=== PATIENT | female | born 1955 | race Caucasian/White ===

== ENCOUNTER → 2018-05-09 15:05 | Outpatient (CLI) | payer OTHER, SELFPAY ==
[2015-06-23 14:26] VITALS: BMI 31.4
[2018-05-09 18:41] LABS: AST(SGOT) 19 U/L (15-37); Alanine Aminotransfer ALT/SGPT 46 U/L (13-56); Albumin, Serum 4.3 g/dL (3.2-5.0); Alkaline Phosphatase 89 U/L (45-117); Anion Gap 8 (5-15); BUN 15 mg/dL (7-18); BUN/Creat Ratio 22.9 RATIO (10-20); Bilirubin, Direct 0.11 mg/dL (0.00-0.30); Calcium,Total 9.5 mg/dL (8.5-10.1); Chloride 104 mmol/L (98-107); Cholesterol 169 mg/dL (200); Creatinine, Serum 0.66 mg/dL (0.55-1.02); EST Glomerular Filtration Rate 97 mL/min (>60); Est Glom Filt Rate - Afr Amer 117 mL/min (>60); Globulin 3.1 g/dL (2.2-4.2); Glucose 121 mg/dL (74-106); High Density Lipoprotein 30 mg/dL; Potassium 4.1 mmol/L (3.5-5.1); Protein, Total 7.4 g/dL (6.4-8.2); Sodium Level 138 mmol/L (136-145); Triglycerides 259 mg/dL; Very Low Density Lipoprotein 52 mg/dL (5-40)
[2018-05-09 18:46] LABS: Hemoglobin A1c 7.2 % (4.2-6.3)
[2018-05-09 19:11] LABS: Microalbumin,Random Urine 29.8 mg/L (NO RANGE EST.); Microalbumin:Creatinine Ratio 15.1 mg/g CRE (<30 mg/g CRE)
--- OUTSIDE RECORDS SUMMARY | 2018-06-25 21:31 | XMS RPT_ITS ---
:1955 Author Organization OHIP Care Team Providers Name Role Phone Antolin Infante Attending Unavailable Antolin Infante Primary Care Unavailable KEYA BURRELL Attending Unavailable KEYA BURRELL Referring Unavailable Antolin Infante Primary Care Unavailable KEYA BURRELL Consulting Unavailable ANTOLIN LIU Admitting Unavailable ANTOLIN LIU Attending Unavailable ROBIN KHAN Consulting Unavailable DESIREE MTZ Attending Unavailable CYNTHIA DOBSON Admitting Unavailable CYNTHIA DOBSON Attending Unavailable CYNTHIA DOBSON Attending Unavailable CYNTHIA DOBSON Attending Unavailable CYNTHIA DOBSON Referring Unavailable CYNTHIA DOBSON Attending Unavailable CYNTHIA DOBSON Attending Unavailable ANTOLIN TAYLOR Primary Care Unavailable CYNTHIA DOBSON Admitting Unavailable CYNTHIA DOBSON Attending Unavailable IMCA Consulting Unavailable CYNTHIA DOBSON Attending Unavailable IMCA Referring Unavailable ANTOLIN TAYLOR Primary Care Unavailable CYNHTIA DOBSON Attending Unavailable CYNTHIA DOBSON Referring Unavailable ANTOLIN TAYLOR Primary Care Unavailable CYNTHIA DOBSON Attending Unavailable CYNTHIA DOBSON Referring Unavailable ANTOLIN TAYLOR Primary Care Unavailable CYNTHIA DOBSON Attending Unavailable IMCA Referring Unavailable ANTOLIN TAYLOR Primary Care Unavailable CYNTHIA DOBSON Attending Unavailable IMCA Referring Unavailable ANTOLIN TAYLOR Primary Care Unavailable PROBLEMS PROBLEMS DATE TYPE CONDITION / CODE ATTENDING STATUS SOURCE 03/19/2018 Active Displaced OLYA, Active [facility] Other fracture of right [place] lower leg, Repository subsequent encounter for closed fracture with routine healing / S82.851D(ICD-10) 03/19/2018 Admitting Unknown / KISHMAN, Active [place] [place] [facility] diagnosis UNK(Unknown) [facility] Repository 03/28/2018 Active Other fracture of OLYA, Active [place] right lower leg, [facility] Other subsequent encounter [place] for closed fracture Repository with routine healing / S82.891D(ICD-10) 03/28/2018 Active Other fracture of TIFFANYSHRUIZ, Active [place] left lower leg, [facility] Other subsequent encounter [place] for closed fracture Repository with routine healing / S82.892D(ICD-10) 03/22/2018 Active Unknown / SCHEATZLE, Active [place] UNK(Unknown) [facility] [place] Repository 03/18/2018 Active Displaced KISHMAN, Active [place] trimalleolar [facility] Other fracture of right [place] lower leg, initial Repository encounter for closed fracture / S82.851A(ICD-10) 03/18/2018 Active Other fracture of LISTERRUIZ, Active [place] right lower leg, [facility] Other initial encounter [place] for closed fracture Repository / S82.891A(ICD-10) 03/18/2018 Active Other specified LISTERPANTEGO, Active [place] postprocedural [facility] Other states / [place] Z98.890(ICD-10) Repository 03/18/2018 Active Other fracture of LISTERRUIZ, Active [place] upper and lower end [facility] Other of left fibula, [place] initial encounter Repository for closed fracture / S82.832A(ICD-10) 03/18/2018 Active Unspecified fall, [facility], Active [place] initial encounter / [facility] Other W19.XXXA(ICD-10) [place] Repository 03/18/[address] [facility], Active [place] unspecified [facility] Other non-institutional [place] (private) residence Repository as the place of occurrence of the external cause / Y92.009(ICD-10) PROCEDURES PROCEDURES No Procedure Records FoundRESULTS RESULTS PROGRESS Observed: 06/03/2018 Status: COMPLETED Source: [place] 1:33 PM CLINIC OTHER CAMPUS REPOSITORY HNO ID: [id number] Author: Cynthia Dobson Service: (none) Author Type: Physician Type: Progress Notes Filed: 06/03/2018 9:08 PM Note Text: DOS: 03/19/18 POD: 11 weeks POV: 4 Procedure: S/p ORIF right ankle fracture and nonoperative care left ankle fracture This 62 year old female presents for a post op visit. Patient states they are doing well. Has transitioned to WB in boot right ankle and WB in lace up ankle brace left ankle. Has also been in physical therapy. States that having little to no pain to her ankles. Not taking anything for pain in the ankle. Denies any current nausea, vomiting, fever, chills, shortness of breath, chest pain or calf pain. No other pedal complaints. PAST MEDICAL HISTORY Diagnosis Date - Anxiety disorder - Diabetes (HCC) Current Outpatient Prescriptions: rosuvastatin (CRESTOR) 5 mg tablet Take 5 mg by mouth once daily. metFORMIN (GLUCOPHAGE) 1,000 mg tablet Take 1,000 mg by mouth twice daily with meals. ibuprofen (MOTRIN) 600 mg tablet Take 1 tablet by mouth every 6 hours as needed (for pain.). lisinopril 2.5 mg tablet Take 1 tablet by mouth once daily. citalopram hydrobromide (CELEXA) 10 mg tablet Take 10 mg by mouth once daily. metFORMIN (GLUCOPHAGE) 500 mg tablet Take 1 tablet by mouth twice daily with meals. enoxaparin (LOVENOX) 40 mg/0.4 mL syrg Inject 0.4 mL subcutaneously q 24 HR. (Patient not taking: Reported on 06/03/2018 ) No current facility-administered medications for this visit. ALLERGIES Allergen Reactions - Codeine Mental Status Change hallucinations Objective: Patient presents weightbearing as tolerated to right leg in boot and WB in lace up ankle brace left ankle. Problem focus examination to the bilateral lower extremities: Incision site is well healed without evidence of dehiscence. Mild edema surrounding surgical site right ankle. No edema left ankle. No drainage. No lymphadenopathy. No lymphangitis. No surrounding cellulitis. No signs of infection. Minimal pain overlying medial and lateral malleoli right ankle. Significant improvement in ROM right ankle. No pain with ROM bilateral ankles. No pain to palpation overlying lateral malleolus left ankle. No pain to palpation overlying medial or anterior left ankle. Patient has no pain to palpation of calf. The calf is soft, supple and nontender without evidence of DVT. Negative Lizbeth's test. Satisfactory alignment is noted. Pedal pulses are palpable. Capillary refill time is less than three seconds to all digits. Sensations are intact to light touch. Radiographs: 3 views bilateral ankle were obtained and evaluated. Radiographic evaluation: Evidence of previous ORIF right ankle fracture with increased trabeculation noted across fracture sites. Hardware intact. Ankle mortise WNL. Fibula out to length. Increased consolidation noted across fracture left fibula. Assessment: Satisfactory post-operative progress right ankle Fibula fracture left ankle Plan: The patient was educated on clinical examination findings, postoperative prognosis and protocol. All questions were answered to patient's apparent satisfaction. - XRs taken and reviewed with patient - Patient to continue weightbearing as tolerated to the operative extremity in boot for 1 week. At that time may advance to WB as tolerated in athletic shoe gear and lace up ankle brace right ankle as tolerated. - September d/c use of lace up ankle brace left ankle as tolerated at this time. -Continue physical therapy. Follow up 6 week with repeat xrays at that time. Cynthia Dobson DPM CNOV Observed: 06/03/2018 Status: COMPLETED Source: [place] 1:00 PM CLINIC OTHER CAMPUS REPOSITORY Office Visit (AGPOB1) KARLI KRISHNAMURTHY ([id number]) 1955 F Date Time Provider Department 06/03/18 1:00 PM CYNTHIA DOBSON [facility] During your visit today, we recorded the following information about you: Respiration Weight Height 16/minute 65.8 kg 1.575 m Cynthia Dobson DPM 06/03/2018 9:08 PM Signed DOS: 03/19/18 POD: 11 weeks POV: 4 Procedure: S/p ORIF right ankle fracture and nonoperative care left ankle fracture This 62 year old female presents for a post op visit. Patient states they are doing well. Has transitioned to WB in boot right ankle and WB in lace up ankle brace left ankle. Has also been in physical therapy. States that having little to no pain to her ankles. Not taking anything for pain in the ankle. Denies any current nausea, vomiting, fever, chills, shortness of breath, chest pain or calf pain. No other pedal complaints. PAST MEDICAL HISTORY Diagnosis Date - Anxiety disorder - Diabetes (HCC) Current Outpatient Prescriptions: rosuvastatin (CRESTOR) 5 mg tablet Take 5 mg by mouth once daily. metFORMIN (GLUCOPHAGE) 1,000 mg tablet Take 1,000 mg by mouth twice daily with meals. ibuprofen (MOTRIN) 600 mg tablet Take 1 tablet by mouth every 6 hours as needed (for pain.). lisinopril 2.5 mg tablet Take 1 tablet by mouth once daily. citalopram hydrobromide (CELEXA) 10 mg tablet Take 10 mg by mouth once daily. metFORMIN (GLUCOPHAGE) 500 mg tablet Take 1 tablet by mouth twice daily with meals. enoxaparin (LOVENOX) 40 mg/0.4 mL syrg Inject 0.4 mL subcutaneously q 24 HR. (Patient not taking: Reported on 06/03/2018 ) No current facility-administered medications for this visit. ALLERGIES Allergen Reactions - Codeine Mental Status Change hallucinations Objective: Patient presents weightbearing as tolerated to right leg in boot and WB in lace up ankle brace left ankle. Problem focus examination to the bilateral lower extremities: Incision site is well healed without evidence of dehiscence. Mild edema surrounding surgical site right ankle. No edema left ankle. No drainage. No lymphadenopathy. No lymphangitis. No surrounding cellulitis. No signs of infection. Minimal pain overlying medial and lateral malleoli right ankle. Significant improvement in ROM right ankle. No pain with ROM bilateral ankles. No pain to palpation overlying lateral malleolus left ankle. No pain to palpation overlying medial or anterior left ankle. Patient has no pain to palpation of calf. The calf is soft, supple and nontender without evidence of DVT. Negative Lizbeth's test. Satisfactory alignment is noted. Pedal pulses are palpable. Capillary refill time is less than three seconds to all digits. Sensations are intact to light touch. Radiographs: 3 views bilateral ankle were obtained and evaluated. Radiographic evaluation: Evidence of previous ORIF right ankle fracture with increased trabeculation noted across fracture sites. Hardware intact. Ankle mortise WNL. Fibula out to length. Increased consolidation noted across fracture left fibula. Assessment: Satisfactory post-operative progress right ankle Fibula fracture left ankle Plan: The patient was educated on clinical examination findings, postoperative prognosis and protocol. All questions were answered to patient's apparent satisfaction. - XRs taken and reviewed with patient - Patient to continue weightbearing as tolerated to the operative extremity in boot for 1 week. At that time may advance to WB as tolerated in athletic shoe gear and lace up ankle brace right ankle as tolerated. - May d/c use of lace up ankle brace left ankle as tolerated at this time. -Continue physical therapy. Follow up 6 week with repeat xrays at that time. Cynthia Dobson DPM Referring Provider: SELF [200] Allergies As of Date: 06/03/2018 Noted Allergy Reaction CODEINE 03/18/2018 1 - Mental Status Change Comments: hallucinations Date Reviewed: 06/03/2018 Reviewed by: Cynthia Dobson - Fully Assessed Reason for Visit: Surgical Followup [104] Cmt: right ankle Primary Visit Diagnosis:Closed displaced trimalleolar fracture of right ankle with routine healing, subsequent encounter [S82.179R] Other Visit Diagnoses:Closed fracture of left ankle with routine healing, subsequent encounter [S82.892D] Post-operative state [Z98.890] Order(s):XR ANKLE GENERAL 3V AP/LAT/OBL RT [6119611] Order #: [id number] XR ANKLE GENERAL 3V AP/LAT/OBL LT [[id number]] Order #: [id number] CONSULT TO PHYSICAL THERAPY (AG) [5079904] Order #: [id number]: 1 Prescriptions as of 06/03/2018 Sig: ROSUVASTATIN 5 MG TABLET Take 5 mg by mouth once daily. METFORMIN 1,000 MG TABLET Take 1,000 mg by mouth twice * IBUPROFEN 600 MG TABLET Take 1 tablet by mouth every * LISINOPRIL 2.5 MG TABLET Take 1 tablet by mouth once d* CITALOPRAM 10 MG TABLET Take 10 mg by mouth once avinash* METFORMIN 500 MG TABLET Take 1 tablet by mouth twice * ENOXAPARIN 40 MG/0.4 ML SUBCU* Inject 0.4 mL subcutaneously * Patient not taking: Reported on 06/03/2018 Problem List As Of Date 06/03/2018 Noted Resolved Closed displaced trimalleolar fracture of right*INVALID FOR* Disposition: Return in about 6 weeks (around 07/15/2018). Follow-up and Disposition History Recorded Encounter Status:Closed by CYNTHIA DOBSON DPM on 06/03/18 INITAL EVALUATION (1) Observed: 06/02/2018 Status: F Source: [place] - PT 9:49 AM [facility] REPOSIT[facility] [address] [place] [address] / REHABILITATION SERVICES INITIAL EVALUATION MR#: [id number] Acct: [id number] Name: KARLI KRISHNAMURTHY Rep #: [id number] : 1955 62 From: Norm Murrieta PT, Cert. MDT, OCS Referring Dr.: Status: REG RCR Insurance: [facility] SELF PAY INSURANCE Patient's Visit Information KARLI KRISHNAMURTHY is a 62 year old F referred to Physical Therapy by CYNTHIA DOBSON with a diagnosis of CLOSED FRACTURE OF RIGHT AND LEFT ANKLE WITH ROUTINE HEALING. Date of Evaluation: 05/26/18 Physical Therapist: Norm Murrieta PT, Cert MDT, OCS - Visit Plan Frequency: 2x /Week Duration: 3 Months Plan: Intially PWB ON RIGHT THEN NEXT WEEK WBAT WITH CAM BOOT AND WBAT WITH LACE UP ANKLE BRACE RIGHT. INTIALLY START NWB EX'S ROM AND THERABAND STRENGTGENING BILATERAL ANKLE,FLEXABLITY,PROGRESS WITH GAIT TRAINING/BALANCE JENA ,PROGRESS TO WB EX' PER MD. QUAD/HIP/HAMS STRENGTHENING - Subjective Findings: This 63 y/o female presents to physical therapy with closed fracture of right and left ankle. Patient fracture tripped on deck at home twisted left ankle closed fracture and fell on right ankle causing closed fracture with dislocation on Mar 18. Patient went to ER at [place] ,thus tranferred to [facility] which did ORIF right ankle on Mar 19 . Patient in hospital for 4 days then went to Rehab for 2weeks at [facility]. When patient seen DR phillips in brace left ankle with WBAT LEFT on the ,and with boot right PWB 1 week then 2weeks on 05/27 at transition to WBAT with CAM boot.Paln to return to Jun 06. Patient conts to have parathesia.tingling and edema.Patient had x-rays looked good .Patient has walk in shower,and spouse assist with ADL'S. Patient scoot up buttuck with stairs. Patient has 2 story home 2 steps and 14 steps 2nd floor.Patient uses w/c currently for moblity. Patient has fww. Patient current condition impairs QOL and ADLS'. SOCAIL: . VOCATION: retired - Pain Right Ankle Pain Intensity (Out of 10): 2 Pain Intensity Range: 10 Left Ankle Pain Intensity (Out of 10): 1 Pain Intensity Range: 10 - Objective POSTURE: pes cavus. MOBLITY: w/c level. NEURO: c/o parathesia/tingling right foot ,diminished light touch,. EDEMA: trimalleor joint line 23.5 cm,left 22.1cm. AROM:R- dorsiflexion 20 degrees from 0,L 10 degrees R -plantarflexion 50,L 60 degrees ,inverson R -10 degrees,right 0 degrees. MMT: left ankle DF 4-/5, PF 2+/5,IN/EV 4-/5,right ankle DF 3+/5,PF 2+/'5,,IN/EV NT. TRANSFERS: mod Independant. - HOMMANS - Goals Goal 1:: Independant with HEP Goal Time Frame: 12-16 Weeks Goal 2:: Ambulate with improve quality of gait with heelstike and toe off during gait cycle community distances. Goal Time Frame: 12-16 Weeks Goal 3:: Patient to improve dynamic balance to goood Goal Time Frame: 12-16 Weeks Goal 4:: Patient to improve ankle ROM as jena by 5-10 degrees to improve function. Goal Time Frame: 12-16 Weeks Goal 5:: Patient to improve strength bilateral ankle 4/5 to improve gait. Goal Time Frame: 12-16 Weeks Goal 6:: Patient to improve LFES score by 15-20 points or greater to improve QOL. Goal Time Frame: 12-16 Weeks - Rehabilitation Potential Physical Therapy Diagnosis: This patient has bilateral ankle fracture with disloaction on right with ORIF with inablity to walk,poor balance,weakness,decrease strength bilateral ankle impairs function and ADL'S thus benifit from skilled PT Rehabilitation Potential: Good - Anticipated Interventions Patient/Client Instruction: Educate patient on: Condition, Plan of Care For the Purpose of:: To decrease pain, To increase ROM, To improve muscle performance and motor function, To improve ability to perform ADL's, To increase tolerance to activity/condition/position, To improve ability of physical actions for home/community/work/leisure, To improve gait and locomotor functions, To improve health of tissue, To decrease soft tissue restriction, To increase flexibility/ROM, To improve endurance, To improve balance, To improve safety with gait, To improve ability to perform tasks related to life management Therapeutic Exercise to Include: Strength training, Balance training, Flexibilty training, Gait and locomotor training, Passive ROM, Active ROM Comment: ANKLE PROGRESS TO WB EX PER MD For the Purpose of:: To decrease pain, To decrease swelling/inflammation, To increase ROM, To improve muscle performance and motor function, To improve ability to perform ADL's, To increase tolerance to activity/condition/position, To improve ability of physical actions for home/community/work/leisure, To improve gait and locomotor functions, To improve health of tissue, To decrease soft tissue restriction, To increase flexibility/ROM, To improve balance, To improve safety with gait, To improve ability to perform tasks related to life management Manual Therapy Techniques to Include: Mobilization Comment: METATARSELS,SUBTALAR For the Purpose of:: To decrease pain, To increase ROM, To improve health of tissue, To decrease soft tissue restriction, To increase flexibility/ROM TENS: Yes IF ES: Yes Cryotherapy (ice pack, ice massage): Yes Thermo therapy (hot pack): Yes Vasopneumatic device: Yes For the Purpose of:: To decrease pain, To increase ROM, To improve nutrient delivery to tissue, To increase oxygenation perfusion, To improve health of tissue, To decrease soft tissue restriction, To increase flexibility/ROM Thank you for the opportunity to evaluate your patient. For Medicare and Medicare HMO plans, please review the plan of care and approve it. It will need to be FAXED BACK to us at [phone] for Medicare purposes. For Medicare only, by signing this I certify the plan of care. Please let me know if there are questions or concerns regarding this plan of care. Physician Signature: Date: <Electronically signed by Norm Murrieta PT, Cert. MDT, OCS> 06/02/18 0949 CC: CYNTHIA DOBSON; Antolin Infante MD EDDIE Signed OBSOLETE Observed: 05/25/2018 Status: COMPLETED Source: [place] 12:00 AM CLINIC OTHER CAMPUS REPOSITORY Refill (AGPOB1) KARLI KRISHNAMURTHY ([id number]) 1955 F Date Time Provider Department 05/25/18 CYNTHIA DOBSON [id number] During your visit today, we recorded the following information about you: Allergies As of Date: 05/25/2018 Noted Allergy Reaction CODEINE 03/18/2018 1 - Mental Status Change Comments: hallucinations Date Reviewed: 05/06/2018 Reviewed by: Cynthia Dobson - Fully Assessed Reason for Visit: Refill Request [94] Order(s):ibuprofen (MOTRIN) 600 mg tabletTake 1 tablet by mouth every 6 hours as needed (for pain.).Disp: 60 tabletRfl: 1 Prescriptions as of 05/25/2018 Sig: CITALOPRAM 10 MG TABLET Take 10 mg by mouth once avinash* ENOXAPARIN 40 MG/0.4 ML SUBCU* Inject 0.4 mL subcutaneously * IBUPROFEN 600 MG TABLET Take 1 tablet by mouth every * LISINOPRIL 2.5 MG TABLET Take 1 tablet by mouth once d* METFORMIN 500 MG TABLET Take 1 tablet by mouth twice * Problem List As Of Date 05/25/2018 Noted Resolved Closed displaced trimalleolar fracture of right*INVALID FOR* Prescriptions ordered this encounter Disp Refills Start End IBUPROFEN 600 MG TABLET 60 t* 1 05/25/2018 Route: ORAL Sig: Take 1 tablet by mouth every 6 hours as needed (for pain.). Medications Discontinued During This Encounter ibuprofen (MOTRIN) 600 mg tablet 60 t* 1 05/12/2018 05/25/2018 Route: ORAL Sig: TAKE 1 TABLET BY MOUTH EVERY 6 HOURS NEEDED (FOR PAIN.). Disc: Reason for discontinue is not on file. Encounter Status:Closed by CYNTHIA DOBSON DPM on 05/25/18 OBSOLETE Observed: 05/12/2018 Status: COMPLETED Source: [place] 12:00 AM CLINIC OTHER CAMPUS REPOSITORY Refill (AGPOB1) KARLI KRISHNAMURTHY ([id number]) 1955 F Date Time Provider Department 05/12/18 CYNTHIA DOBSON AGPOB1 During your visit today, we recorded the following information about you: Allergies As of Date: 05/12/2018 Noted Allergy Reaction CODEINE 03/18/2018 1 - Mental Status Change Comments: hallucinations Date Reviewed: 05/06/2018 Reviewed by: Cynthia Dobson - Fully Assessed Reason for Visit: Refill Request [94] Order(s):ibuprofen (MOTRIN) 600 mg tabletTAKE 1 TABLET BY MOUTH EVERY 6 HOURS NEEDED (FOR PAIN.).Disp: 60 tabletRfl: 1 Prescriptions as of 05/12/2018 Sig: IBUPROFEN 600 MG TABLET TAKE 1 TABLET BY MOUTH EVERY * CITALOPRAM 10 MG TABLET Take 10 mg by mouth once avinash* ENOXAPARIN 40 MG/0.4 ML SUBCU* Inject 0.4 mL subcutaneously * LISINOPRIL 2.5 MG TABLET Take 1 tablet by mouth once d* METFORMIN 500 MG TABLET Take 1 tablet by mouth twice * Problem List As Of Date 05/12/2018 Noted Resolved Closed displaced trimalleolar fracture of right*INVALID FOR* Prescriptions ordered this encounter Disp Refills Start End IBUPROFEN 600 MG TABLET 60 t* 1 05/12/2018 Route: ORAL Sig: TAKE 1 TABLET BY MOUTH EVERY 6 HOURS NEEDED (FOR PAIN.). Medications Discontinued During This Encounter ibuprofen (MOTRIN) 600 mg tablet 60 t* 1 04/08/2018 05/12/2018 Route: ORAL Sig: Take 1 tablet by mouth every 6 hours as needed (for pain.). Disc: Reason for discontinue is not on file. Encounter Status:Closed by CYNTHIA DOBSON DPM on 05/12/18 BASIC METABOLIC Collected: 05/09/2018 Status: F Source: [place] PROFILE (BMP) 3:11 PM [facility] REPOSITORY TYPE CODE TESTS RESULT OUT OF RANGE REFERENCE UNITS LAB L501.0100 74-106 mg/dL High GLU 121 Result Comment: Fasting Glucose result from 100 to 125 mg/dL suggests IMPAIRED HOMEOSTASIS per A.D.A. criteria. Please note revised GLUCOSE reference range effective 2017. LAB L501.1000 7-18 mg/dL Normal BUN 15 LAB L501.1100 0.55-1.02 mg/dL Normal CREAT,SERUM 0.66 Result Comment: The validity of the calculated GFR AND GFRAA in patients over 70 years has not been determined. Clinical correlation is essential. LAB L501.1110 >60 mL/min Normal EST GFR 97 Result Comment: Non- GFR Calc LAB L501.1115 >60 mL/min Normal EST GFR - AA 117 Result Comment: GFR Calc LAB L501.1300 10-20 RATIO High BUN/CRE 22.9 LAB L501.2200 8.5-10.1 mg/dL CA Normal 9.5 LAB L501.5300 136-145 mmol/L NA Normal 138 LAB L501.5600 3.5-5.1 mmol/L K Normal 4.1 LAB L501.5900 98-107 mmol/L CL Normal 104 LAB L501.6100 21.0-32.0 mmol/L Normal CO2 26.0 LAB L501.6200 5-15 Normal GAP 8 Performed By: #### L500.2500, L500.3400, L500.4100 #### [facility] [address] [place], [place], [id number] LIVER PROFILE Collected: 05/09/2018 Status: F Source: [place] 3:11 PM [facility] REPOSITORY TYPE CODE TESTS RESULT OUT OF RANGE REFERENCE UNITS LAB L501.1500 6.4-8.2 g/dL Normal T PROT 7.4 LAB L501.1800 3.2-5.0 g/dL Normal ALB 4.3 LAB L501.1950 2.2-4.2 g/dL Normal GLOB 3.1 LAB L501.4100 15-37 U/L Normal AST 19 LAB L501.4305 45-117 U/L Normal ALK P 89 LAB L501.4405 13-56 U/L Normal ALT 46 LAB L501.4600 0.20-1.00 mg/dL Normal T BILI 0.30 LAB L501.4700 0.00-0.30 mg/dL Normal D BILI 0.11 Performed By: #### L500.2500, L500.3400, L500.4100 #### [facility] [address] [place], [address] LIPID PROFILE Collected: 05/09/2018 Status: F Source: [place] 3:11 PM [facility] REPOSITORY TYPE CODE TESTS RESULT OUT OF RANGE REFERENCE UNITS LAB L501.4900 200 mg/dL Normal CHOL 169 Result Comment: <200 mg/dL Desirable 200-240 mg/dL Borderline >240 mg/dL High Risk LAB L501.5000 mg/dL High TRIG 259 Result Comment: The drugs N-Acetylcysteine and Metamizole may falsely depress this assay. Serum Triglycerides Reference Interval Normal <150 mg/dL Borderline high 150 - 199 mg/dL High 200 - 499 mg/dL Very High > or = 500 mg/dL LAB L501.6400 mg/dL Low HDL 30 Result Comment: The drugs N-Acetylcysteine and Metamizole may falsely depress this assay. Reference Range HDL <40 mg/dL Low HDL Cholesterol HDL >or= 60 mg/dL High HDL Cholesterol LAB L501.6500 0-130 mg/dL Normal LDL 87 LAB L501.6600 5-40 mg/dL High VLDL 52 Performed By: #### L500.2500, L500.3400, L500.4100 #### [facility] [address] [place], [address] HEMOGLOBIN A1C Collected: 05/09/2018 Status: F Source: [place] 3:11 PM [facility] REPOSITORY TYPE CODE TESTS RESULT OUT OF RANGE REFERENCE UNITS LAB L501.9985 4.2-6.3 % High HGB A1C 7.2 Performed By: #### L501.9985 #### [facility] [address] [place], [address] MICROALB:CREAT Collected: 05/09/2018 Status: F Source: [place] [facility] 3:11 PM [facility] REPOSITORY TYPE CODE TESTS RESULT OUT OF RANGE REFERENCE UNITS LAB L501.1200 NO RANGE EST. mg/dL Normal UR CREAT 197.00 LAB L502.0500 NO RANGE EST. mg/L Normal 29.8 MICROALBUMIN ,UR LAB L502.0600 <30 mg/g CRE mg/g CRE Normal 15.1 MALB:CREAT Performed By: #### L502.0250 #### [facility] [address] [place], [address] PROGRESS Observed: 05/06/2018 Status: COMPLETED Source: [place] 2:31 PM [facility] OTHER [facility] REPOSITORY HNO ID: [id number] Author: Cynthia Dobson Service: (none) Author Type: Physician Type: Progress Notes Filed: 05/08/2018 2:09 PM Note Text: DOS: 03/19/18 POD: 7 weeks POV: 3 Procedure: S/p ORIF right ankle fracture and nonoperative care left ankle fracture This 62 year old female presents for a post op visit. Patient states they are doing well. Pain is well controlled by Ibuprofen and Tylenol. States that taking this less often than had been. Has been elevating the extremities as instructed preoperatively and has been nonweightbearing to the right lower extremity and WB in boot left LE. Denies any current nausea, vomiting, fever, chills, shortness of breath, chest pain or calf pain. No other pedal complaints. PAST MEDICAL HISTORY Diagnosis Date - Anxiety disorder - NEGATIVE MEDICAL HISTORY Current Outpatient Prescriptions: ibuprofen (MOTRIN) 600 mg tablet Take 1 tablet by mouth every 6 hours as needed (for pain.). lisinopril 2.5 mg tablet Take 1 tablet by mouth once daily. enoxaparin (LOVENOX) 40 mg/0.4 mL syrg Inject 0.4 mL subcutaneously q 24 HR. citalopram hydrobromide (CELEXA) 10 mg tablet Take 10 mg by mouth once daily. metFORMIN (GLUCOPHAGE) 500 mg tablet Take 1 tablet by mouth twice daily with meals. No current facility-administered medications for this visit. ALLERGIES Allergen Reactions - Codeine Mental Status Change hallucinations Objective: Patient presents nonweightbearing to right leg in boot with crutches and WB in boot left ankle. Right foot/ankle Tubigrip and tuan bandage. Problem focus examination to the right lower extremity: Incision site is well coapted without evidence of dehiscence. Mild erythema and edema surrounding surgical site. No drainage. No lymphadenopathy. No lymphangitis. No surrounding cellulitis. No signs of infection. Pain overlying medial and lateral malleoli and incision sites right ankle. Appropriate diffuse mild pain to palpation of global right ankle. Pain with max DF of right ankle, unable to actively DF foot to 90 degrees. Minimal pain to palpation overlying lateral malleolus left ankle. No pain to palpation overlying medial or anterior left ankle. No pain with AJ ROM left. Patient has no pain to palpation of calf. The calf is soft, supple and nontender without evidence of DVT. Negative Lizbeth's test. Satisfactory alignment is noted. Pedal pulses are palpable. Capillary refill time is less than three seconds to all digits. Sensations are intact to light touch. Radiographs: 3 views bilateral ankle were obtained and evaluated. Radiographic evaluation: Evidence of previous ORIF right ankle fracture. Hardware intact. Ankle mortise WNL. Fibula out to length. Increased consolidation noted across fractures. Assessment: Satisfactory post-operative progress right ankle Fibula fracture left ankle Plan: The patient was educated on clinical examination findings, postoperative prognosis and protocol. All questions were answered to patient's apparent satisfaction. - XRs taken and reviewed with patient - Patient to continue nonweightbearing to the operative extremity in boot and crutches for 1 week, then partial WB in boot with crutches for another 2 weeks, then WB as tolerated in boot without crutches - Patient to continue WB as tolerated to the left ankle in fracture boot for 1 week, then transition out of boot with ankle brace - Lace up ankle brace fit and dispensed to the left ankle today. - New Tubigrip and TUAN dispensed. - Patient to continue ROM exercises. - Referral to physical therapy Follow up 4 week with repeat xrays at that time. Vickey Matson DPM pgy2 Patient was seen, evaluated, discussed and treated with the above resident, all copeland components of the exam and treatment were reviewed. I agree with the findings and treatment plan as outlined the above note. Cynthia Dobson DPM CNOV Observed: 05/06/2018 Status: COMPLETED Source: [place] 2:15 PM [facility] OTHER [facility] REPOSITORY Office Visit (AGPOB1) KARLI KRISHNAMURTHY ([id number]) 1955 F Date Time Provider Department 05/06/18 2:15 PM CYNTHIA DOBSON [id number] During your visit today, we recorded the following information about you: Respiration Weight Height 16/minute 65.8 kg 1.575 m Cynthia Dobson DPM 05/08/2018 2:09 PM Signed DOS: 03/19/18 POD: 7 weeks POV: 3 Procedure: S/p ORIF right ankle fracture and nonoperative care left ankle fracture This 62 year old female presents for a post op visit. Patient states they are doing well. Pain is well controlled by Ibuprofen and Tylenol. States that taking this less often than had been. Has been elevating the extremities as instructed preoperatively and has been nonweightbearing to the right lower extremity and WB in boot left LE. Denies any current nausea, vomiting, fever, chills, shortness of breath, chest pain or calf pain. No other pedal complaints. PAST MEDICAL HISTORY Diagnosis Date - Anxiety disorder - NEGATIVE MEDICAL HISTORY Current Outpatient Prescriptions: ibuprofen (MOTRIN) 600 mg tablet Take 1 tablet by mouth every 6 hours as needed (for pain.). lisinopril 2.5 mg tablet Take 1 tablet by mouth once daily. enoxaparin (LOVENOX) 40 mg/0.4 mL syrg Inject 0.4 mL subcutaneously q 24 HR. citalopram hydrobromide (CELEXA) 10 mg tablet Take 10 mg by mouth once daily. metFORMIN (GLUCOPHAGE) 500 mg tablet Take 1 tablet by mouth twice daily with meals. No current facility-administered medications for this visit. ALLERGIES Allergen Reactions - Codeine Mental Status Change hallucinations Objective: Patient presents nonweightbearing to right leg in boot with crutches and WB in boot left ankle. Right foot/ankle Tubigrip and tuan bandage. Problem focus examination to the right lower extremity: Incision site is well coapted without evidence of dehiscence. Mild erythema and edema surrounding surgical site. No drainage. No lymphadenopathy. No lymphangitis. No surrounding cellulitis. No signs of infection. Pain overlying medial and lateral malleoli and incision sites right ankle. Appropriate diffuse mild pain to palpation of global right ankle. Pain with max DF of right ankle, unable to actively DF foot to 90 degrees. Minimal pain to palpation overlying lateral malleolus left ankle. No pain to palpation overlying medial or anterior left ankle. No pain with AJ ROM left. Patient has no pain to palpation of calf. The calf is soft, supple and nontender without evidence of DVT. Negative Lizbeth's test. Satisfactory alignment is noted. Pedal pulses are palpable. Capillary refill time is less than three seconds to all digits. Sensations are intact to light touch. Radiographs: 3 views bilateral ankle were obtained and evaluated. Radiographic evaluation: Evidence of previous ORIF right ankle fracture. Hardware intact. Ankle mortise WNL. Fibula out to length. Increased consolidation noted across fractures. Assessment: Satisfactory post-operative progress right ankle Fibula fracture left ankle Plan: The patient was educated on clinical examination findings, postoperative prognosis and protocol. All questions were answered to patient's apparent satisfaction. - XRs taken and reviewed with patient - Patient to continue nonweightbearing to the operative extremity in boot and crutches for 1 week, then partial WB in boot with crutches for another 2 weeks, then WB as tolerated in boot without crutches - Patient to continue WB as tolerated to the left ankle in fracture boot for 1 week, then transition out of boot with ankle brace - Lace up ankle brace fit and dispensed to the left ankle today. - New Tubigrip and TUAN dispensed. - Patient to continue ROM exercises. - Referral to physical therapy Follow up 4 week with repeat xrays at that time. Vickey Matson DPM pgy2 Patient was seen, evaluated, discussed and treated with the above resident, all copeland components of the exam and treatment were reviewed. I agree with the findings and treatment plan as outlined the above note. ONDINA Abernathy DPM 05/06/2018 3:24 PM Addendum RIGHT ANKLE: Nonweightbearing to the right ankle for the next week. In 1 week, transition to partial weightbearing in boot with assistance of walker. 2 weeks following this, may transition to weightbearing in boot without assistance LEFT ANKLE Continue boot for 1 week, then transition to WB in lace up ankle brace as tolerated Referring Provider: SELF [[id number]] Allergies As of Date: 05/06/2018 Noted Allergy Reaction CODEINE 03/18/2018 1 - Mental Status Change Comments: hallucinations Date Reviewed: 05/06/2018 Reviewed by: Cynthia Dobson - Fully Assessed Reason for Visit: Surgical Followup [104] Cmt: B Ankle R Ankle Sx DOS 03/19/2018 Primary Visit Diagnosis:Post-operative state [Z98.890] Other Visit Diagnoses:Closed fracture of right ankle with routine healing, subsequent encounter [S82.891D] Closed fracture of left ankle with routine healing, subsequent encounter [S82.892D] Order(s):XR ANKLE GENERAL 3V AP/LAT/OBL RT [[id number]] Order #: [id number] XR ANKLE GENERAL 3V AP/LAT/OBL LT [[id number]] Order #: [id number] AFO ANKLE GAUNTLET, CUSTOM FITTED [[id number]] Order #: [id number] CONSULT TO PHYSICAL THERAPY (AG) [[id number]] Order #: [id number]: 1 Prescriptions as of 05/06/2018 Sig: IBUPROFEN 600 MG TABLET Take 1 tablet by mouth every * LISINOPRIL 2.5 MG TABLET Take 1 tablet by mouth once d* ENOXAPARIN 40 MG/0.4 ML SUBCU* Inject 0.4 mL subcutaneously * CITALOPRAM 10 MG TABLET Take 10 mg by mouth once avinash* METFORMIN 500 MG TABLET Take 1 tablet by mouth twice * Problem List As Of Date 05/06/2018 Noted Resolved Closed displaced trimalleolar fracture of right*INVALID FOR* Other instructions from your clinician: RIGHT ANKLE: Nonweightbearing to the right ankle for the next week. In 1 week, transition to partial weightbearing in boot with assistance of walker. 2 weeks following this, may transition to weightbearing in boot without assistance LEFT ANKLE Continue boot for 1 week, then transition to WB in lace up ankle brace as tolerated Disposition: Return in about 4 weeks (around 06/03/2018). Follow-up and Disposition History Recorded Encounter Status:Closed by CYNTHIA DOBSON DPM on 05/08/18 PROGRESS Observed: 04/09/2018 Status: COMPLETED Source: [place] 8:38 PM [facility] OTHER [facility] REPOSITORY HNO ID: [id number] Author: Cynthia Dobson Service: (none) Author Type: Physician Type: Progress Notes Filed: 04/09/2018 8:45 PM Note Text: DOS: 03/19/18 POD: 20 days POV: 2 Procedure: S/p ORIF right ankle fracture and nonoperative care left ankle fracture This 62 year old female presents for a post op visit. Patient states they are doing well. Pain is well controlled by Jayton. States that taking this less often than had been. Has been icing and elevating the extremity as instructed preoperatively and has been nonweightbearing to the right lower extremity and WB in boot left LE. Denies any current nausea, vomiting, fever, chills, shortness of breath, chest pain or calf pain. States that blood sugars have been improved since her diagnosis and states that now averaging around 120 mg/dl. Now home. Has finished Lovenox for DVT prophylaxis. Denies any other pedal complaints PAST MEDICAL HISTORY Diagnosis Date - Anxiety disorder - NEGATIVE MEDICAL HISTORY Current Outpatient Prescriptions: HYDROcodone-acetaminophen (NORCO) 5-325 mg per tablet Take 1 tablet by mouth every 6 hours as needed for Pain for up to 7 days. ibuprofen (MOTRIN) 600 mg tablet Take 1 tablet by mouth every 6 hours as needed (for pain.). lisinopril 2.5 mg tablet Take 1 tablet by mouth once daily. metFORMIN (GLUCOPHAGE) 500 mg tablet Take 1 tablet by mouth twice daily with meals. enoxaparin (LOVENOX) 40 mg/0.4 mL syrg Inject 0.4 mL subcutaneously q 24 HR. citalopram hydrobromide (CELEXA) 10 mg tablet Take 10 mg by mouth once daily. No current facility-administered medications for this visit. ALLERGIES Allergen Reactions - Codeine Mental Status Change hallucinations Objective: Patient presents nonweightbearing to right leg and WB in boot left ankle. Dressing is dry, clean, and intact with minimal strike through noted. Problem focus examination to the right lower extremity: Incision site is well coapted without evidence of dehiscence. Mild erythema and edema surrounding surgical site. No drainage. No lymphadenopathy. No lymphangitis. No surrounding cellulitis. No signs of infection. Pain overlying medial and lateral malleoli and incision sites right ankle. Appropriate diffuse mild pain to palpation of global right ankle. Pain to palpation overlying lateral malleolus left ankle. No pain to palpation overlying medial or anterior left ankle. No pain with AJ ROM left. Patient has no pain to palpation of calf. The calf is soft, supple and nontender without evidence of DVT. Negative Lizbeth's test. Satisfactory alignment is noted. Pedal pulses are palpable. Capillary refill time is less than three seconds to all digits. Sensations are intact to light touch. Assessment: Satisfactory post-operative progress right ankle Fibula fracture left ankle Plan: The patient was educated on clinical examination findings, postoperative prognosis and protocol. All questions were answered to patient's apparent satisfaction. - Sutures removed to the right LE and steri-strips applied overlying. - Patient to continue nonweightbearing to the operative extremity and WB as tolerated to the left ankle in fracture boot - Fracture boot fit and dispensed in office today for the right LE. Tubigrip and TUAN wrap applied overlying. - Patient to remove boot couple times a day for ROM exercises. - Dispensed Rx for Jayton due to continued post operative pain. Advised patient to continue to decrease use of this medication. - Dispensed Rx for ibuprofen. Follow up 4 week with repeat xrays at that time. Cynthia Dobson DPM CNOV Observed: 04/08/2018 Status: COMPLETED Source: [place] 2:00 PM [facility] REPOSITORY Office Visit (AGPOB1) KARLI KRISHNAMURTHY ([id number]) 1955 F Date Time Provider Department 04/08/18 2:00 PM CYNTHIA DOBSONB1 During your visit today, we recorded the following information about you: Respiration Weight Height 17/minute 65.8 kg 1.575 m Cynthia Dobson DPM 04/09/2018 8:45 PM Signed DOS: 03/19/18 POD: 20 days POV: 2 Procedure: S/p ORIF right ankle fracture and nonoperative care left ankle fracture This 62 year old female presents for a post op visit. Patient states they are doing well. Pain is well controlled by Jayton. States that taking this less often than had been. Has been icing and elevating the extremity as instructed preoperatively and has been nonweightbearing to the right lower extremity and WB in boot left LE. Denies any current nausea, vomiting, fever, chills, shortness of breath, chest pain or calf pain. States that blood sugars have been improved since her diagnosis and states that now averaging around 120 mg/dl. Now home. Has finished Lovenox for DVT prophylaxis. Denies any other pedal complaints PAST MEDICAL HISTORY Diagnosis Date - Anxiety disorder - NEGATIVE MEDICAL HISTORY Current Outpatient Prescriptions: HYDROcodone-acetaminophen (NORCO) 5-325 mg per tablet Take 1 tablet by mouth every 6 hours as needed for Pain for up to 7 days. ibuprofen (MOTRIN) 600 mg tablet Take 1 tablet by mouth every 6 hours as needed (for pain.). lisinopril 2.5 mg tablet Take 1 tablet by mouth once daily. metFORMIN (GLUCOPHAGE) 500 mg tablet Take 1 tablet by mouth twice daily with meals. enoxaparin (LOVENOX) 40 mg/0.4 mL syrg Inject 0.4 mL subcutaneously q 24 HR. citalopram hydrobromide (CELEXA) 10 mg tablet Take 10 mg by mouth once daily. No current facility-administered medications for this visit. ALLERGIES Allergen Reactions - Codeine Mental Status Change hallucinations Objective: Patient presents nonweightbearing to right leg and WB in boot left ankle. Dressing is dry, clean, and intact with minimal strike through noted. Problem focus examination to the right lower extremity: Incision site is well coapted without evidence of dehiscence. Mild erythema and edema surrounding surgical site. No drainage. No lymphadenopathy. No lymphangitis. No surrounding cellulitis. No signs of infection. Pain overlying medial and lateral malleoli and incision sites right ankle. Appropriate diffuse mild pain to palpation of global right ankle. Pain to palpation overlying lateral malleolus left ankle. No pain to palpation overlying medial or anterior left ankle. No pain with AJ ROM left. Patient has no pain to palpation of calf. The calf is soft, supple and nontender without evidence of DVT. Negative Lizbeth's test. Satisfactory alignment is noted. Pedal pulses are palpable. Capillary refill time is less than three seconds to all digits. Sensations are intact to light touch. Assessment: Satisfactory post-operative progress right ankle Fibula fracture left ankle Plan: The patient was educated on clinical examination findings, postoperative prognosis and protocol. All questions were answered to patient's apparent satisfaction. - Sutures removed to the right LE and steri-strips applied overlying. - Patient to continue nonweightbearing to the operative extremity and WB as tolerated to the left ankle in fracture boot - Fracture boot fit and dispensed in office today for the right LE. Tubigrip and TUAN wrap applied overlying. - Patient to remove boot couple times a day for ROM exercises. - Dispensed Rx for Jayton due to continued post operative pain. Advised patient to continue to decrease use of this medication. - Dispensed Rx for ibuprofen. Follow up 4 week with repeat xrays at that time. Cynthia Dobson DPM Referring Provider: CYNTHIA DOBSON [[id number]] Allergies As of Date: 04/08/2018 Noted Allergy Reaction CODEINE 03/18/2018 1 - Mental Status Change Comments: hallucinations Date Reviewed: 04/08/2018 Reviewed by: Bea JuddBlueStacksSuellen Foster - Fully Assessed Reason for Visit: Post-Op Visit [1236] Cmt: rt ankle dos 03/19/18 Primary Visit Diagnosis:Post-operative state [Z98.890] Other Visit Diagnoses:Closed fracture of right ankle with routine healing, subsequent encounter [S82.891D] Closed fracture of left ankle with routine healing, subsequent encounter [S82.892D] Order(s):REMOVAL OF SUTURES [[id number]] Order #: [id number] HYDROcodone-acetaminophen (NORCO) 5-325 mg per tabletTake 1 tablet by mouth every 6 hours as needed for Pain for up to 7 days.Disp: 28 tabletRfl: 0 ibuprofen (MOTRIN) 600 mg tabletTake 1 tablet by mouth every 6 hours as needed (for pain.).Disp: 60 tabletRfl: 1 PNEUMATI WALKING BOOT PREFAB [[id number]] Order #: [id number] Prescriptions as of 04/08/2018 Sig: HYDROCODONE 5 MG-ACETAMINOPHE* Take 1 tablet by mouth every * IBUPROFEN 600 MG TABLET Take 1 tablet by mouth every * LISINOPRIL 2.5 MG TABLET Take 1 tablet by mouth once d* METFORMIN 500 MG TABLET Take 1 tablet by mouth twice * ENOXAPARIN 40 MG/0.4 ML SUBCU* Inject 0.4 mL subcutaneously * CITALOPRAM 10 MG TABLET Take 10 mg by mouth once avinash* Problem List As Of Date 04/08/2018 Noted Resolved Closed displaced trimalleolar fracture of right*INVALID FOR* Prescriptions ordered this encounter Disp Refills Start End HYDROCODONE 5 MG-ACETAMINOPHEN 325 M* 28 t* 0 04/08/2018 04/15/2018 Class: Print RX Route: ORAL Sig: Take 1 tablet by mouth every 6 hours as needed for Pain for up to 7 days. IBUPROFEN 600 MG TABLET 60 t* 1 04/08/2018 Route: ORAL Sig: Take 1 tablet by mouth every 6 hours as needed (for pain.). Disposition: Return in about 4 weeks (around 05/06/2018). Follow-up and Disposition History Recorded Encounter Status:Closed by CYNTHIA DOBSON DPM on 04/09/18 PROGRESS Observed: 03/28/2018 Status: COMPLETED Source: [place] 2:11 PM [facility] OTHER [facility] REPOSITORY O ID: [id number] Author: Cynthia Dobson Service: (none) Author Type: Physician Type: Progress Notes Filed: 03/29/2018 9:09 PM Note Text: DOS: 03/19/18 POD: 9 days POV: 1 Procedure: S/p ORIF right ankle fracture and nonoperative care left ankle fracture This 62 year old female presents for a post op visit. Patient states they are doing well. Pain is well controlled by Percocet. Has been icing and elevating the extremity as instructed preoperatively and has been nonweightbearing to the right lower extremity and WB in boot left LE. Denies any current nausea, vomiting, fever, chills, shortness of breath, chest pain or calf pain. States that blood sugars have been improved since her diagnosis and states that now running between 100-130mg/dl. Currently in acute rehab. Has been taking Lovenox for DVT prophylaxis. Denies any other pedal complaints PAST MEDICAL HISTORY Diagnosis Date - Anxiety disorder - NEGATIVE MEDICAL HISTORY Current Outpatient Prescriptions: lisinopril 2.5 mg tablet Take 1 tablet by mouth once daily. metFORMIN (GLUCOPHAGE) 500 mg tablet Take 1 tablet by mouth twice daily with meals. enoxaparin (LOVENOX) 40 mg/0.4 mL syrg Inject 0.4 mL subcutaneously q 24 HR. HYDROcodone-acetaminophen (NORCO) 5-325 mg per tablet Take 1 tablet by mouth every 4 hours as needed for up to 7 days. citalopram hydrobromide (CELEXA) 10 mg tablet Take 10 mg by mouth once daily. No current facility-administered medications for this visit. ALLERGIES Allergen Reactions - Codeine Mental Status Change hallucinations Objective: Patient presents nonweightbearing to right leg and WB in boot left ankle. Dressing is dry, clean, and intact with moderate strike through noted. Problem focus examination to the right lower extremity: Incision site is well coapted without evidence of dehiscence. Mild erythema and edema surrounding surgical site. No drainage. No lymphadenopathy. No lymphangitis. No surrounding cellulitis. No signs of infection. Pain overlying medial and lateral malleoli and incision sites right ankle. Appropriate diffuse mild pain to palpation of global right ankle. Pain to palpation overlying lateral malleolus left ankle. No pain to palpation overlying medial or anterior left ankle. No pain with AJ ROM left. Patient has no pain to palpation of calf. The calf is soft, supple and nontender without evidence of DVT. Negative Lizbeth's test. Satisfactory alignment is noted. Pedal pulses are palpable. Capillary refill time is less than three seconds to all digits. Sensations are intact to light touch. Radiographs: 3 views bilateral ankles were obtained and evaluated. Radiographic evaluation: Evidence of previous ORIF right ankle fracture. Hardware intact without breakage or loosening noted. Good bony reduction and alignment with fibula out to length. Nondisplaced deleon A fibular fracture noted left ankle. Ankle mortise intact. Assessment: Satisfactory post-operative progress right ankle Fibula fracture left ankle Plan: The patient was educated on clinical examination findings, postoperative prognosis and protocol. All questions were answered to patient's apparent satisfaction. - Bandage removed and new dressing applied. - Dacosta compressive dressing and posterior splint applied to right LE. - Patient to continue nonweightbearing to the operative extremity and WB as tolerated to the left ankle in fracture boot - Continue lovenox until course complete. Follow up 1 week for possible suture removal right ankle. Cynthia Dobson DPM CNOV Observed: 03/28/2018 Status: COMPLETED Source: [place] 1:30 PM CLIN[facility] OTHER CAMPUS REPOSITORY Office Visit (AGMF1) KARLI KRISHNAMURTHY ([id number]) 1955 F Date Time Provider Department 03/28/18 1:30 PM [facility] During your visit today, we recorded the following information about you: Respiration Weight Height 16/minute 65.8 kg 1.575 m Cynthia Dobson DPM 03/29/2018 9:09 PM Signed DOS: 03/19/18 POD: 9 days POV: 1 Procedure: S/p ORIF right ankle fracture and nonoperative care left ankle fracture This 62 year old female presents for a post op visit. Patient states they are doing well. Pain is well controlled by Percocet. Has been icing and elevating the extremity as instructed preoperatively and has been nonweightbearing to the right lower extremity and WB in boot left LE. Denies any current nausea, vomiting, fever, chills, shortness of breath, chest pain or calf pain. States that blood sugars have been improved since her diagnosis and states that now running between 100-130mg/dl. Currently in acute rehab. Has been taking Lovenox for DVT prophylaxis. Denies any other pedal complaints PAST MEDICAL HISTORY Diagnosis Date - Anxiety disorder - NEGATIVE MEDICAL HISTORY Current Outpatient Prescriptions: lisinopril 2.5 mg tablet Take 1 tablet by mouth once daily. metFORMIN (GLUCOPHAGE) 500 mg tablet Take 1 tablet by mouth twice daily with meals. enoxaparin (LOVENOX) 40 mg/0.4 mL syrg Inject 0.4 mL subcutaneously q 24 HR. HYDROcodone-acetaminophen (NORCO) 5-325 mg per tablet Take 1 tablet by mouth every 4 hours as needed for up to 7 days. citalopram hydrobromide (CELEXA) 10 mg tablet Take 10 mg by mouth once daily. No current facility-administered medications for this visit. ALLERGIES Allergen Reactions - Codeine Mental Status Change hallucinations Objective: Patient presents nonweightbearing to right leg and WB in boot left ankle. Dressing is dry, clean, and intact with moderate strike through noted. Problem focus examination to the right lower extremity: Incision site is well coapted without evidence of dehiscence. Mild erythema and edema surrounding surgical site. No drainage. No lymphadenopathy. No lymphangitis. No surrounding cellulitis. No signs of infection. Pain overlying medial and lateral malleoli and incision sites right ankle. Appropriate diffuse mild pain to palpation of global right ankle. Pain to palpation overlying lateral malleolus left ankle. No pain to palpation overlying medial or anterior left ankle. No pain with AJ ROM left. Patient has no pain to palpation of calf. The calf is soft, supple and nontender without evidence of DVT. Negative Lizbeth's test. Satisfactory alignment is noted. Pedal pulses are palpable. Capillary refill time is less than three seconds to all digits. Sensations are intact to light touch. Radiographs: 3 views bilateral ankles were obtained and evaluated. Radiographic evaluation: Evidence of previous ORIF right ankle fracture. Hardware intact without breakage or loosening noted. Good bony reduction and alignment with fibula out to length. Nondisplaced deleon A fibular fracture noted left ankle. Ankle mortise intact. Assessment: Satisfactory post-operative progress right ankle Fibula fracture left ankle Plan: The patient was educated on clinical examination findings, postoperative prognosis and protocol. All questions were answered to patient's apparent satisfaction. - Bandage removed and new dressing applied. - Dacosta compressive dressing and posterior splint applied to right LE. - Patient to continue nonweightbearing to the operative extremity and WB as tolerated to the left ankle in fracture boot - Continue lovenox until course complete. Follow up 1 week for possible suture removal right ankle. Cynthia Dobson DPM Referring Provider: SELF [200] Allergies As of Date: 03/28/2018 Noted Allergy Reaction CODEINE 03/18/2018 1 - Mental Status Change Comments: hallucinations Date Reviewed: 03/28/2018 Reviewed by: Cynthia Dobson - Fully Assessed Reason for Visit: Follow Up [171] Cmt: f/u s/p ORIF R trimalleolar ankle fracture, also with non-displaced L distal fibula fracture. DOS: 03/19/18 Primary Visit Diagnosis:Post-operative state [Z98.890] Other Visit Diagnoses:Closed fracture of right ankle with routine healing, subsequent encounter [S82.381B] Closed fracture of left ankle with routine healing, subsequent encounter [S82.282D] Order(s):XR ANKLE GENERAL 3V AP/LAT/OBL LT [[id number]] Order #: [id number] XR ANKLE GENERAL 3V AP/LAT/OBL RT [[id number]] Order #: [id number] APPLY LOWER LEG SPLINT [[id number]] Order #: [id number] CLOSED RX DIST FIBULA FX [[id number]] Order #: [id number] Prescriptions as of 03/28/2018 Sig: LISINOPRIL 2.5 MG TABLET Take 1 tablet by mouth once d* METFORMIN 500 MG TABLET Take 1 tablet by mouth twice * ENOXAPARIN 40 MG/0.4 ML SUBCU* Inject 0.4 mL subcutaneously * HYDROCODONE 5 MG-ACETAMINOPHE* Take 1 tablet by mouth every * CITALOPRAM 10 MG TABLET Take 10 mg by mouth once avinash* Problem List As Of Date 03/28/2018 Noted Resolved Closed displaced trimalleolar fracture of right*INVALID FOR* Disposition: Return in about 2 weeks (around 04/13/2018) for 04/11 or 04/13. Follow-up and Disposition History Recorded Encounter Status:Closed by CYNTHIA DOBSON DPM on 03/29/18 PROGRESS Observed: 03/26/2018 Status: COMPLETED Source: [place] 1:58 AM [facility] REPOSITORY HNO ID: [id number] Author: Downtime Note Service: (none) Author Type: (none) Type: Progress Notes Filed: 03/26/2018 2:00 AM Note Text: Epic Scheduled Downtime: 03/26/2018 12:00:01 AM to 03/26/2018 1:54:00 AM CNDS Observed: 03/22/2018 Status: COMPLETED Source: [place] 6:02 PM [facility] CAMP[facility] REPOSITORY HNO ID: [id number] Author: Cynthia Dobson Service: Orthopaedic Surgery Author Type: Physician Type: Discharge Summaries Filed: 03/23/2018 9:12 AM Note Text: DISCHARGE SUMMARY PATIENT NAME: Karli Krishnamurthy ADMISSION DATE: 03/18/2018 DISCHARGE DATE: 03/22/2018 Attending Physician: Cynthia Dobson Code Status: Not on file Highest Readmission Risk Score: 13 The 30 day readmissions risk score is derived from an internally validated risk model which evaluates patient level characteristics, utilization history, medication orders and lab results up until the day of discharge. Patients with a score of 40 or above are considered highest risk for readmission. Specific patient level drivers will be listed at the bottom of the summary. Reason for Hospitalization: Active Problems: Closed displaced trimalleolar fracture of right ankle Diabetes type 2 Admitting Diagnosis: Left trimalleolar ankle fracture, right distal fibula ankle fracture Discharge Diagnosis: Same as admitting Operations During Hospitalization: ORIF L ankle fracture, ORIF L ankle syndesmosis Consultations: Physical Therapy Case Management Internal Medicine Hospital Course: The patient is a 62 year old female who admitted by Dr. Dobson for left ankle fracture. It was determined that the patient would benefit from surgery. The procedure, its risks, benefits, and potential complications were discussed in detail with the patient prior to surgery. Understanding of all topics was conveyed by the patient, and consent was given for surgery. The patient was emergently admitted through the Emergency Department on 03/18/2018. Surgery was scheduled and on 03/19/2018 the patient underwent the above procedure. The procedure was tolerated well and the patient was sent to the post-operative recovery room in stable condition, where they did well. Post operative x-rays in the recovery room showed good hardware placement and reduction of ankle mortise. The patient was subsequently sent to the floors for postoperative management. . Once on the floor the patient's postoperative course was monitored closely and did well. Her diet was advanced which was tolerated well. Her pain was well controlled. Oral medication alone managed pain prior to discharge. She worked with Physical and Occupational Therapy who recommended she be discharged to rehab. Dressings were appropriately managed during the stay. Patient was noted to have elevated glucose. Diagnosied with DM during this hospital admission with Hgb A1c of 8.4. Internal medicine was consulted for newly diagnosed DM and patient was started on oral medication as well as underwent DM education. She was stable for discharge to Residential Facility on POD#3. Complete and comprehensive discharge instructions were provided to the patient as well as necessary prescriptions. The patient had no further questions and was advised to call with any questions, concerns, or problems. Transitions of Care Critical Issues: NEW BASELINE FOR PATIENT: non weight bearing left leg, diabetes eduction and new diagnosis Patient was hemodynamically stable postoperatively. Discharge Antibiotics: Prior to surgery the patient was treated with antibiotics and continued with antibiotics 24 hours postoperatively Transfers: PACU and then to the hospital surgical floor when PACU criteria was met. DVT Prophylaxis: Lovenox 40mg SQ daily x 21 days total. Pain Control: Oral narcotics Complications: Hospital medicine consulted for post-op medical management and instructions on new diabetes medication and education LABS AND PROCEDURES PENDING AT DISCHARGE: No pending results. Relevant labs included: No new labs Patient Condition @ Discharge: Stable Discharge Disposition: Residential Facility PHYSICAL EXAM (CHOOSE FIRST BLANK IF NOT LAST DAY PROGRESS NOTE): Information Provided to Patient: Supplies or Equipment I need Standard Walker Activity: Non Weight Bearing left lower, weight bearing as tolerated right lower in walking boot Diet: Resume pre-hospital diet Wound/Surgical Site Care: Wound/Surgical Site Care Do not change or remove your dressing ALLERGIES Allergen Reactions - Codeine Mental Status Change hallucinations Discharge Medications: Discharge Medication List as of 03/22/2018 1:56 PM START taking these medications lisinopril 2.5 mg tablet Take 1 tablet by mouth once daily. Print RX, Disp-20 tablet, R-0, Long-term metFORMIN (GLUCOPHAGE) 500 mg tablet Take 1 tablet by mouth twice daily with meals. Print RX, Disp-60 tablet, R-0, Long-term enoxaparin (LOVENOX) 40 mg/0.4 mL syrg Inject 0.4 mL subcutaneously q 24 HR. Print RX, Disp-15 Syringe, R-0 CONTINUE these medications which have CHANGED HYDROcodone-acetaminophen (NORCO) 5-325 mg per tablet Take 1 tablet by mouth every 4 hours as needed for up to 7 days. Print RX, Disp-28 tablet, R-0 Dx: 1. Closed trimalleolar fracture of right ankle, initial encounter CONTINUE these medications which have NOT CHANGED citalopram hydrobromide (CELEXA) 10 mg tablet Take 10 mg by mouth once daily. Historical Med, Long-term Follow-Up in 10-14 days The patient's risk for 30-day readmission is determined using the following contributing factors: Pt variables contributing to increased readmission risk: 14 Most Recent BUN Result 9 Active Medication Orders 8.9 First Resulted Calcium During Admission 2 Number of Previous ED Visits (6 mos.) 1 Previous ED Visit (6 mos.)? 1 Insurance - Private Coverage 1 Active Anticoagulant TIME OF CARE: Discharge Management: I personally spent greater than 30 minutes involved in the discharge management of this patient. SIGNATURE: Iqra Mcclure MD PATIENT NAME: Karli Krishnamurthy DATE: 03/22/2018 TIME: 6:02 PM CELL/PAGER#: [phone] Attending Note I evaluated the patient and personally participated in the cop[place] components. I agree with the resident's findings and plan as documented and have discussed the case and management of the patient's care with the resident. Signature: Cynthia Dobson DPM Date: 03/23/2018 Time: 9:11 AM ALLIED HEALTH Observed: 03/22/2018 Status: COMPLETED Source: [place] 3:57 PM CLINIC OTHER CAMPUS REPOSITORY O ID: [id number] Author: Serena (Rn) SUNSHINE Arboleda Service: Diabetes Education Author Type: Registered Nurse Type: Allied Health Filed: 03/22/2018 4:05 PM Note Text: DIABETES EDUCATION PROGRESS NOTE SERVICE DATE: 03/22/2018 SERVICE TIME: 1500 RECOMMENDATIONS: Referal to outpatient diabetes self-management education program offered. Patient needs to follow-up with primary care physician after discharge. PATIENT HISTORY/ASSESSMENT: New diagnosis: Type 2 Needs blood glucose meter: Needs TOPIC(S): Survival Skills: Basic diabetes mellitus disease process Medication therapy: Oral agent(s) - Metformin (Glucophage) Acute complications: Hypoglycemia, Hyperglycemia and Sick Day Management Blood glucose monitoring: Timing techniques, Logging results, Alternating fingers, Disposal of sharps Blood glucose targets: FBS 70-110 2hr pc 70-140 FBS 70-110 2hrpc 70-140 Patient Education/Health Promotion: Complication prevention, Coping skills, Exercise, Self management and follow up and role of BG control in post-op healing Diabetes Management: Self foot care, Dilated eye exam and Hemaglobin A1C EDUCATION: Cognitive ability: Alert and Oriented. Motivation to learn: Interested. Barriers to learning: None Family support: High - Very involved in pt care Education Type: Individual instruction Written instruction - handouts Verbal instruction Response to education: States/Identifies and Return Demonstration. Education provided to: Patient and Spouse. Teachback method used. Time Spent (Minutes): 45 DM ed complete and signed off. Re-consult prn. SIGNATURE: Serena Arboleda RN PATIENT NAME: Karli Krishnamurthy DATE: March 22, 2018 TIME: 3:57 PM PAGER: [phone] GLUCOSE METER Collected: 03/22/2018 Status: F Source: [facility] 3:54 PM HEALTH SYSTEM REPOSITORY TYPE CODE TESTS RESULT OUT OF REFERENCE UNITS RANGE LAB GLUBL(LOINC 70-99 mg/dL ) High Glucose Meter 179 Result Comment: RN NOTIFIED Performed By: #### GLMET #### [place] [address] CASE MANAGEM Observed: 03/22/2018 Status: COMPLETED Source: [place] 1:38 PM CLINIC OTHER CAMPUS REPOSITORY HNO ID: [id number] Author: Ainsley (Rn) SUNSHINE Monterroso Service: Care Management Author Type: Registered Nurse Type: Care Mgt Progress Note Filed: 03/22/2018 1:43 PM Note Text: CARE MANAGEMENT DISCHARGE NOTE SERVICE DATE: 03/22/2018 SERVICE TIME: 1:38 PM LOS: 3 days Admission Date: 03/18/2018 DISCHARGE ARRANGEMENT (list agency and phone number) Acute rehab Provider: Jones Sarabia CAREGIVER ASSESSMENT: Caregiver is ready, willing and able to meet the patient's needs as recommended by the inter-professional team? No Caregiver Needed Patient's transition needs and plan for meeting these needs: plan for acute rehab prior to home Does the patient have an acute stroke diagnosis, or has the patient had a stroke during this admission? No HANDOFF COMMUNICATION: report will be called to jones sarabia. TRANSPORTATION ARRANGEMENTS: Mode of Transportation: [employer] Agency and Phone #: [facility] ( [facility] ) [phone] / [phone]. Date of Trip: 03/22/18 Type of Service: BLS Non-emergency Is Patient Medicaid Pending: No Discussion of financial coverage occurred with Patient . Humanities Coordinator Location: [facility] Destination: jones sarabia Financial Care Management Responsibility: None Estimated Charge: Approving Quality Assurance Group Leader: ADDITIONAL CONTACT RESOURCES: Insurance authorization has been obtained for jones sarabia. Dc orders have been noted. [place] transportation has been set up for 1730. Patient and have been notified and remain agreeable. Nurse aware. SIGNATURE: Ainsley Monterroso RN PATIENT NAME: Karli Krishnamurthy DATE: March 22, 2018 TIME: 1:38 PM PAGER/CONTACT #: [phone] PROGRESS Observed: 03/22/2018 Status: COMPLETED Source: [place] 12:49 PM CLINIC OTHER CAMPUS REPOSITORY O ID: [id number] Author: Deyanira Dickson Service: Hospital Medicine Author Type: Physician Type: Progress Notes Filed: 03/23/2018 6:01 AM Note Text: INTERNAL MEDICINE PROGRESS NOTE SERVICE DATE: 03/22/2018 SERVICE TIME: 12:50 PM ADMITTING PHYSICIAN: Cynthia Dobson Subjective CHIEF COMPLAINT: f/u medical issues listed below Current Facility-Administered Medications: metFORMIN 500 mg tab(s) (GLUCOPHAGE) 500 mg ORAL BID w MEALS lisinopril 2.5 mg tab(s) 2.5 mg ORAL DAILY docusate sodium 100 mg cap(s) (COLACE) 100 mg ORAL BID citalopram hydrobromide 10 mg tablet (CeleXA) 10 mg ORAL DAILY morphine 2 mg injection 2 mg INTRAVENOUS q 2 H PRN ondansetron (PF) 4 mg injection (ZOFRAN) 4 mg INTRAVENOUS q 6 H PRN HYDROcodone 5 mg - acetaminophen 325 mg tablet (NORCO) 1-2 tablet ORAL q 4 H PRN lactated ringers infusion 100 mL/hr INTRAVENOUS CONTINUOUS enoxaparin 40 mg injection (LOVENOX) 40 mg SUBCUTANEOUS q 24 HR INTERVAL HISTORY OF PRESENT ILLNESS: Objective PHYSICAL EXAM: Patient Vitals for the past 24 hrs: BP Temp Temp src Pulse Resp SpO2 03/22/18 0514 142/82 36.6 ?C (97.9 ?F) Temporal Art 65 18 97 % 03/21/18 1600 133/71 36.7 ?C (98.1 ?F) Temporal Art 75 16 96 % Body mass index is 26.51 kg/m?. GENERAL: Alert, no distress, cooperative LUNGS: Lungs clear CARDIAC: reg ABDOMEN: Abdomen soft DATA: Diagnostic tests reviewed for today's visit: Significant findings were revd Assessment/Plan DM2-new diagnosis. - D/w pt importance of lifestyle with nutrition and exercise.- Started on metformin- Whole food plant based diet. [employer] for educational literature and free recipes.-I provided pt the website- SIGNATURE: Deyanira Dickson DO PATIENT NAME: Karli Krishnamurthy DATE: March 22, 2018 TIME: 12:50 PM PAGER/CONTACT #: [phone] Observed: 03/22/2018 Status: COMPLETED Source: [place] 11:50 AM CLINIC OTHER CAMPUS REPOSITORY HNO ID: [id number] Author: Keely Sotomayor Service: Physical Therapy Author Type: Ventilating Equipment Installer Type: Therapy (PT/OT/Speech/Resp) Filed: 03/22/2018 11:58 AM Note Text: Attestation signed by Lianet Bowen PT at 03/22/2018 1:34 PM I reviewed and agree with the documentation corresponding to this therapy visit. SIGNATURE: Lianet Bowen PT DATE: March 22, 2018 TIME: 1:34 PM Physical Therapy Treatment SERVICE DATE: 03/22/2018 SERVICE TIME: 1100 to 1130 ROOM: [place] [address] Recommended Discharge Disposition: Acute Rehab Justification For Post Acute Needs: Anticipate patient will tolerate 3 hours of daily therapy at the time of admission to post-acute setting;Living the community premorbidly;Willing to participate PT Recommendations to Nursing: Transfer to/from chair;OOB for Meals;With assist of 1 person Device: Wheeled Walker PT 6 Clicks Score: 17 Precautions/Activity Restrictions: Weight Bearing Restrictions Extremity With Weight Bearing Restricted: Left Lower Extremity;Right Lower Extremity Left Lower Extremity Weight Bearing Status: WBAT (in Boot) Right Lower Extremity Weight Bearing Status: NWB ASSESSMENT : Patient slowly progressing towards goals. Able to increase ambulation distance but only tolerates short intervals secondary to increase in right ankle pain while performing functional mobility and requires rest breaks with elevation of right lower extremity. Continue to recommend acute rehab upon discharge to promote independence with functional mobility and activities of daily living. Patient Disposition at Start of Session: OOB in Chair;Call [facility] in Reach Patient Disposition at End of Session: OOB in Chair;Call [facility] in Reach Tolerated Full Session Physical Therapy Problem List: Pain;Decreased Strength;Functional Mobility Impairment;Impaired Self Care Patient /Caregiver Goals: Go To Rehab Goals for Plan of Care: Able to perform HEP with: Verbal Cues Only Rolling with: Verbal Cues Only Transfer supine to/from sit with: Contact Guard Assistance Transfer sit to/from stand with: Contact Guard Assistance Ambulate with: Contact Guard Assistance Distance: 20 Device: Wheeled Walker Ambulate up and down steps with: Contact Guard Assistance (When appropriate) Number of steps: 4 Device: Rail;Crutch(es) Progress Toward Goals: Progressing as expected Rehab Potential: Good PLAN: Treatment Frequency (times per week): 7 (2-7) Current admission Treatment Interventions: Education;Strengthening;Functional Mobility Training Plan of Care developed with: Patient TREATMENT INTERVENTIONS: Therapy Diagnosis: Reduced mobility-other;Abnormalities of gait and mobility-other Interventions Provided: Therapeutic Exercise (30965);Gait Training (53864) Therapeutic Exercise (43114) Treatment Minutes: 14 1 unit Skilled Intervention(s): Instruction in therapeutic exercise: Patient completed general strengthening exercises in chair sitting and reclined (quad set, gluteal set, hip abd/add, straight leg raise, long arc quad, hip adductor squeeze) x 12-15 reps bilateral lower extremity, with minimal assist for straight leg raise provided cueing for facilitation of muscle control, optimal recruitment and alignment Gait Training (48729) Treatment Minutes: 13 1 unit Skilled Intervention(s): Instruction in sit to stand technique with proper hand placement and body positioning at edge of bed/chair x 3 reps Instruction in stand to sit technique with LE's touching chair/bed and reaching back for surface x 3 reps Instruction in use of wheeled walker equipment, cues for upright posture with forward gaze with minimal assist provided for wheeled walker negotiation especially with turns and correction of 1 loss of balance initially upon standing Total Timed Code Treatment Minutes: 27 Total Treatment Time (minutes): 27 SUBJECTIVE: Current Hospital Course: Chart reviewed and no significant medical updates relevant to therapy were noted Reason for Physical Therapy Consult : post sx care, NWB R LE, WBAT L in boot Patient Report: C/O 6/10 pain in right ankle. Walker boot donned Home Environment Patient Lives With: Family Assistance Available: 24 Hour Entry To Home: Stairs;Without Rail Number Of Stairs Into Home: 3 Number Of Stairs To Bed/Bath: 14 Stairs to Bed/Bath with: Unilateral Rail Prior Functional Level: Within Functional Limits OBJECTIVE: CURRENT FUNCTIONAL STATUS: Current Functional Mobility Assist Level Additional Information Rolling Contact Guard Assistance Supine to Sit Minimal Assistance Sit to Supine Minimal Assistance Scooting Minimal Assistance Sit to Stand Minimal Assistance Stand to Sit Minimal Assistance Bed to Chair Toilet/Commode Gait Minimal Assistance Gait Device: Wheeled Walker Gait Distance (feet): intervals of 7-8ft Stairs Curb Step Car Transfer General Gait Deviations: Step length decreased;Non-functional gait speed (NWB RLE) Please see discipline specific clinical documentation flowsheet for complete details for this therapy evaluation/treatment. SIGNATURE: Keely Sotomayor PTA PATIENT NAME: Karli Krishnamurthy DATE: March 22, 2018 TIME: 11:50 AM PROGRESS Observed: 03/22/2018 Status: COMPLETED Source: [place] 6:07 AM [facility] OTHER CAMPUS REPOSITORY O ID: [id number] Author: Cynthia Dobson Service: Orthopaedic Surgery Author Type: Physician Type: Progress Notes Filed: 03/22/2018 7:31 PM Note Text: ORTHOPAEDIC SURGERY DAILY PROGRESS NOTE Patient Name: Karli Krishnamurthy Date of Evaluation: 03/22/2018 Admission Date: 03/18/2018 Time of Evaluation: 6:07 AM ASSESSMENT: 62yo F POD#3 s/p ORIF R trimalleolar ankle fracture, also with non-displaced L distal fibula fracture PLAN: - PT/OT: Non Weight Bearing right lower, Weight bearing as tolerated left lower in walker boot - DVT Prophylaxis: Lovenox 40mg SQ daily x 21 days total - Appreciate medicine recommendations regarding DM diagnosis. Started on Metformin and Lisinopril, appreciate assistance with discharge medications - Discharge planning: Residential Facility, determining location today INTERVAL HPI: Patient monitored, no new events overnight. Patient states that they are comfortable. Well Controlled pain. Denies nausea/vomiting. Waiting for insurance on rehab OBJECTIVE: BP 133/71 Pulse 75 Temp 36.7 ?C (98.1 ?F) (Temporal Artery) Resp 16 Ht 157.5 cm (5' 2.01) Wt 65.8 kg (145 lb) SpO2 96% BMI 26.51 kg/m? Intake/Output Summary (Last 24 hours) 03/210 - 03/22 0659 In: - Out: 450 [Urine:450] Exam: General: NAD, AAOx3 Extremities: Right Lower Extremity: Splint clean, dry and intact. Surgical site no drainage and skin edges well approximated. SILT S/S/SP/DP/T Motor intact DF/PF/EHL PT/DP pulse palpable, foot warm with pulses Compartments soft, compressible. Tolerates passive stretch of digits. Labs: BMP: Sodium 137 03/19/2018 Potassium 3.8 03/19/2018 Chloride 106 03/19/2018 CO2 27 03/19/2018 BUN 14 03/19/2018 Creatinine 0.61 03/19/2018 Glucose 159 03/19/2018 CBC: WBC 8.5 03/18/2018 HGB 14.3 03/18/2018 Hematocrit 42.3 03/18/2018 Platelet Count 293 03/18/2018 Iqra Mcclure MD Orthopaedic Surgery, PGY-4 Please page [phone] from 5p-6a and on weekends for any issues. Cell #: [phone] Pager #: [phone] 03/22/2018 6:07 AM Attending Note I evaluated the patient and personally participated in the copeland components. I agree with the resident's findings and plan as documented and have discussed the case and management of the patient's care with the resident. Follow up with me in 7-10 days Signature: Cynthia Dobson DPM Date: 03/22/2018 Time: 1240 PM CONSULT Observed: 03/21/2018 Status: COMPLETED Source: [facility] 8:41 PM CLINIC OTHER CAMPUS REPOSITORY HNO ID: [id number] Author: Gabriela Spence Service: Hospital Medicine Author Type: Physician Type: Consults Filed: 03/21/2018 9:38 PM Note Text: DEPARTMENT OF HOSPITAL MEDICINE INITIAL CONSULT SERVICE DATE: 03/21/2018 SERVICE TIME: 8:41 PM Primary Care Physician: Antolin Infante MD NIGHT AND WEEKEND COVERAGE: After 7pm, please call cross cover pager #[phone] REASON FOR CONSULT: new onset DM REQUESTING PHYSICIAN: Olya Subjective CHIEF COMPLAINT: Medical management HPI: This is a 62 year old female who was admitted with right ankle dislocation and left distal fibula fracture. While in the hospital, noted to have elevated BG, HbA1c checked and is 8.4, medicine consulted. Patient is asymptomatic at present time. Pain is controlled, no nausea, sob, chest pain. She had a gestational diabetes with her last child at age of 40. PAST MEDICAL HISTORY Diagnosis Date - Anxiety disorder - NEGATIVE MEDICAL HISTORY PAST SURGICAL HISTORY Procedure Laterality Date - PAST SURGICAL HISTORY OF 1996 - REMOVAL GALLBLADDER 1981 Cholecystectomy - REMOVAL OF TONSILS,<12 Y/O 1973 Tonsillectomy FAMILY HISTORY Problem Relation Age of Onset - Coronary Artery Disease Mother - Stroke Father - Lipids Father - Coronary Artery Disease Father - Diabetes Father Social History Substance Use Topics - Smoking status: Never Smoker - Smokeless tobacco: Never Used - Alcohol use Yes Comment: socially MEDICATIONS: Reviewed Prescriptions Prior to Admission: citalopram hydrobromide (CELEXA) 10 mg tablet Take 10 mg by mouth once daily. Disp: Rfl: Current hospital medications: docusate sodium 100 mg cap(s) (COLACE) 100 mg ORAL BID citalopram hydrobromide 10 mg tablet (CeleXA) 10 mg ORAL DAILY morphine 2 mg injection 2 mg INTRAVENOUS q 2 H PRN ondansetron (PF) 4 mg injection (ZOFRAN) 4 mg INTRAVENOUS q 6 H PRN HYDROcodone 5 mg - acetaminophen 325 mg tablet (NORCO) 1-2 tablet ORAL q 4 H PRN lactated ringers infusion 100 mL/hr INTRAVENOUS CONTINUOUS enoxaparin 40 mg injection (LOVENOX) 40 mg SUBCUTANEOUS q 24 HR . ALLERGIES Allergen Reactions - Codeine Mental Status Change hallucinations REVIEW OF SYSTEMS: THERMOSTAT MECHANIC: no history of THERMOSTAT MECHANIC disease RESP: no history of pulmonary disease CARD: no history of cardiac disease GI: no history of GI disease RENAL: no history of renal disease ENDO: no history of endocrine disease HEME: no history of hematologic disease RHEUM: no history of rheumatologic disease PSYCHIATRIC: no history of psychiatric disease Objective PHYSICAL EXAM: BP 133/71 Pulse 75 Temp (Src) 98.1 (Temporal Artery) Resp 16 Ht 5' 2.008 (1.58m) Wt 145 lb (65.8kg) SpO2 96% BMI 26.51 kg/(m2). Physical Exam Performed: GENERAL: Alert, no distress, cooperative HEAD/SINUSES: No significant findings NECK: No jugulovenous distention, No carotid bruits, Carotid pulse normal contour, Supple LUNGS: Lungs clear to auscultation, Good diaphragmatic excursion CARDIAC: Normal S1 and S2; no rubs, murmurs, or gallops ABDOMEN: Abdomen soft, non-tender, BS normal, No masses or organomegaly EXTREMITIES: RLE splint in place, LLE boot on Lines, Drains, and Airways Line Peripheral 03/18/18 2306 Admission to Hospital Short Left Antecubital 20 Gauge 2 days DATA: Diagnostic tests reviewed for today's visit: Most recent labs and imaging results. Impression/Recommendations Active Problems: Closed displaced trimalleolar fracture of right ankle POA: Yes Assessment AND Plan: -per primary to manage New onset DM2 -accuchecks -start Metformin -diabetes education -will start on low dose of Lisinopril to protect kidneys -recommended to see ophthalmology for retinal exam as outpatient -f/u with PCP VTE PROPHYLAXIS: per primary service Disposition: TBD Plan of care discussed with: Patient SIGNATURE: Gabriela Spence MD PATIENT NAME: Karli Krishnamurthy DATE: March 21, 2018 TIME: 8:41 PM PAGER/CONTACT #: CASE MGT INIT Observed: 03/21/2018 Status: COMPLETED Source: [facility] 1:33 PM CLINIC OTHER CAMPUS REPOSITORY O ID: [id number] Author: Kimberly (Rn) SUNSHINE Levin Service: Care Management Author Type: Registered Nurse Type: Care Mgt Initial Assessment Filed: 03/21/2018 1:44 PM Note Text: CARE MANAGEMENT: ASSESSMENT AND DISCHARGE PLAN SERVICE DATE: 03/21/2018 SERVICE TIME: 1:34 PM PRIMARY CARE PHYSICIAN: Antolin Infante MD ADMISSION STATUS: Inpatient 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 No Advance Directive: Current Advance Directive: None Podiatric Medicine Doctor Attempted to Assist with AD Completion: Yes Action: Patient Unwilling;Education Provided Health Literacy: 1. How often do you need to have someone help you when you read instructions, pamphlets, or other written material from your doctor or pharmacy? Never - 1 2. How confident are you filling out medical forms by yourself? Extremely - 1 If Patient scores > 3 on either question, the following interventions were put into place: Patient did not score > 3 FUNCTIONAL AND COGNITIVE/BEHAVIORAL PRIOR TO ADMISSION: Baseline Mental Status: Alert AND Oriented, Person, Place , Time and Situation Functional Status: Independent Does Patient Currently Receive Any Community Services or Home Care? None Equipment Prior to Admission: None Has the Patient Been in a Residential Facility in the Past 30 days? No SOCIAL: Living Arrangement: Home Lives With: Spouse Financial Resources: Retired Primary Contact: Extended Emergency Contact Information Primary Emergency Contact: Dylan Krishnamurthy [address]: [address] [place] [address] Relation: Spouse Supportive: Yes Other Important Patient Contacts: None Caregiver Assessment: Caregiver is ready, willing and able to meet the patient's needs as recommended by the inter-professional team? Yes Patient's transition needs and plan for meeting these needs: Acute rehab Does the patient have an acute stroke diagnosis, or has the patient had a stroke during this admission? No Medication Adherence: I am convinced of the importance of my prescription medication: Agree completely - 0 I worry that my prescription medication will do more harm than good to me Disagree completely - 0 I feel financially burdened by my [id number] expenses for my prescription medication: Disagree completely - 0 Patient is categorized as low risk < 2 Are you interested in bedside delivery of your medications? No Food Concerns: In the Last Month, Have You had Trouble Getting Food? No trouble getting food During the Last Month, Have You Worried Whether Your Food Would Run Out Before You Had Enough Money to Buy More? No Is the Patient Psychosocially Complex? No ASSESSMENT AND PLAN: Medical Needs: Broken ankle Psychosocial Needs: None FREEDOM OF CHOICE EXPLAINED: Financial Disclosure Provided Provider List: Rehab Facility Preference: [facility] in [place] POTENTIAL TRANSITION PLANS Rehab Facility Chart reviewed. Met with patient and spouse Dylan. Plan is [facility] for Acute rehab. +PCP, +RX, Denies DME SIGNATURE: Kimberly Levin RN PATIENT NAME: Karli Krishnamurthy DATE: March 21, 2018 TIME: 1:33 PM PAGER/CONTACT #: [phone] HGB A1C Collected: 03/21/2018 Status: F Source: [facility] 1:23 PM HEALTH SYSTEM REPOSITORY TYPE CODE TESTS RESULT OUT OF RANGE REFERENCE UNITS LAB A1C5(LOINC) 4.2-6.3 % High Hgb A1c 8.4 Result Comment: Method is National Glycohemoglobin Standardization Program (NGSP) compliant. LAB ESAVG(LOINC) mg/dl Est. Avg Glucose 194 Performed By: #### HA1C #### [facility] [address], [place] [address] THERAPY NT Observed: 03/21/2018 Status: COMPLETED Source: [place] 12:25 PM CLINIC OTHER CAMPUS REPOSITORY HNO ID: [id number] Author: Amairani (Otr/L) Anjali Service: Occupational Therapy Author Type: Occupational Therapist Type: Therapy (PT/OT/Speech/Resp) Filed: 03/21/2018 12:28 PM Note Text: Occupational Therapy Evaluation SERVICE DATE: 03/21/2018 SERVICE TIME: 0900 to 0915 ROOM: [place] [id number] Recommended Discharge Disposition: Acute Rehab Justification For Post Acute Needs: Anticipate patient will tolerate 3 hours of daily therapy at the time of admission to post-acute setting;Anticipated community discharge;Cognition intact;Good family support;Good premorbid functional status;Living the community premorbidly;Motivated;Anticipate that patient will require daily (5x/wk) skilled therapy in a post-acute facility setting at the time of acute hospital discharge OT Recommendations to Nursing: ADL?s in chair;Bedside Commode for Toileting;Encourage patient participation with in-bed ADL?s;OOB for meals Equipment: Commode-Bedside;Wheeled Walker OT 6 Clicks Score: 17 Precautions/Activity Restrictions: Weight Bearing Restrictions Extremity With Weight Bearing Restricted: Left Lower Extremity;Right Lower Extremity Left Lower Extremity Weight Bearing Status: WBAT (in Boot) Right Lower Extremity Weight Bearing Status: NWB ASSESSMENT: OT Evaluation Low Complexity: Occupational Profile - Brief review of patient's medical record completed (please see current hospital course of evaluation). Occupational Performance - Pt presents with no deficits. Complexity in Clinical Decision Making - The extent of clinical reasoning was low, no need for modifications during the evaluation process, no comorbidities present to affect patient's occupational performance. Tolerance Limited By Pain (nausea) Occupational Therapy Problem List: Education Deficit;Edema;Pain;Safety Deficits;Impaired Self Care;Decreased Activity Tolerance;Decreased Range Of Motion;Decreased Strength;Functional Mobility Impairment Patient /Caregiver Goals: Go To Rehab Goals for Plan of Care: Upper Body Dressing with: Set Up Lower Body Dressing with: Minimal Assistance Toilet Hygiene with: Modified Independent Chair Transfer with: Contact Guard Assistance Toilet Transfer with: Contact Guard Assistance Tub Transfer with: Minimal Assistance Tolerate (minutes of functional activity): 30 Functional Activity with: Minimal Assistance Home Management Skills with: Moderate Assistance Kitchen Mobility Tasks with: Minimal Assistance Demonstrate Competence With Education with: Supervision Progress Toward Goals: Progressing as expected Rehab Potential: Good PLAN: Treatment Frequency (times per week): 3 (1-3) Current admission Treatment Interventions: Education;Self Care / Home Management;Strengthening;Functional Mobility Training;Edema Management;Pain Management;Balance Training Plan of Care developed with: Patient TREATMENT INTERVENTIONS: Therapy Diagnosis: Reduced mobility-other;Decreased activities of daily living (ADL);Unsteadiness on feet;General symptoms and signs-other;Difficulty walking-musculoskeletal Interventions Provided: Evaluation $ Evaluation-Low (03041) Billed Units: 1 unit Total Treatment Time (minutes): 15 FUNCTIONAL G CODE: OT 6 Clicks Score: 17 (03/21/18899) Self Care Current Status (G8987): CK (03/21/18899) Self Care Goal Status (G8988): CJ (03/21/18899) Based on clinical assessment and the score on the 6 Clicks Functional Assessment Tool, the G code and corresponding severity modifiers are documented above. SUBJECTIVE: Current Hospital Course: Chart reviewed; 62yo F POD#2 s/p ORIF R trimalleolar ankle fracture, also with non-displaced L distal fibula fracture PLAN: - PT/OT: Non Weight Bearing right lower, Weight bearing as tolerated left lower in walker boot PAST MEDICAL HISTORY Diagnosis Date - Anxiety disorder - NEGATIVE MEDICAL HISTORY PAST SURGICAL HISTORY Procedure Laterality Date - PAST SURGICAL HISTORY OF 1996 - REMOVAL GALLBLADDER 1981 Cholecystectomy - REMOVAL OF TONSILS,<12 Y/O 1974 Tonsillectomy Home Environment Patient Lives With: Family Assistance Available: 24 Hour Entry To Home: Stairs;Without Rail Number Of Stairs Into Home: 3 Number Of Stairs To Bed/Bath: 14 Stairs to Bed/Bath with: Unilateral Rail Prior Functional Level: Within Functional Limits OBJECTIVE: Responsiveness: Alert;Awake Follows Commands: 3-step Commands Executive Function Deficits: Safety Awareness Safety Awareness Deficit: Moderate impairment CURRENT FUNCTIONAL STATUS: Current Activities of Daily Living Assist Level Feeding Set Up Grooming Set Up Bathing Upper Body Minimal Assistance Bathing Lower Body Maximal Assistance Dressing Upper Body Contact Guard Assistance Dressing Lower Body Maximal Assistance Toileting Moderate Assistance Instrumental Activities of Daily Living Assist Level Meal/Beverage Prep Moderate Assistance Light Cleaning Maximal Assistance Laundry Maximal Assistance Medication Management with Strategies Minimal Assistance Functional Mobility Assist Level Rolling (declined mobility due to nausea cool washcloth and meds provided) Toilet/Commode Moderate Assistance (BSC next to bed in room) Functional Mobility Hand Dominance: Right Range of Motion: WFL Strength: Lower Extremity Comments (impaired bilateral lower extremities) Activity Tolerance: (poor) Functional Performance Test Functional PerformanceTest: (impaired 15 second mobility test BLE) Please see discipline specific clinical documentation flowsheet for complete details for this therapy evaluation/treatment. SIGNATURE: SARAH Farias/Mariia PATIENT NAME: Karli Krishnamurthy DATE: March 21, 2018 TIME: 12:25 PM THERAPY NT Observed: 03/21/2018 Status: COMPLETED Source: [place] 10:26 AM [facility] REPOSITORY O ID: [id number] Author: Brooklyn Suero Service: Physical Therapy Author Type: Ventilating Equipment Installer Type: Therapy (PT/OT/Speech/Resp) Filed: 03/21/2018 10:34 AM Note Text: Attestation signed by Lianet Bowen PT at 03/21/2018 1:32 PM I reviewed and agree with the documentation corresponding to this therapy visit. SIGNATURE: Lianet Bowen PT DATE: March 21, 2018 TIME: 1:31 PM Physical Therapy Treatment SERVICE DATE: 03/21/2018 SERVICE TIME: 950 ROOM: [id number] Recommended Discharge Disposition: Acute Rehab Justification For Post Acute Needs: Anticipate patient will tolerate 3 hours of daily therapy at the time of admission to post-acute setting;Living the community premorbidly;Willing to participate PT Recommendations to Nursing: Transfer to/from chair;OOB for Meals;With assist of 1 person Device: Wheeled Walker PT 6 Clicks Score: 17 Precautions/Activity Restrictions: Weight Bearing Restrictions Extremity With Weight Bearing Restricted: Left Lower Extremity;Right Lower Extremity Left Lower Extremity Weight Bearing Status: WBAT (in Boot) Right Lower Extremity Weight Bearing Status: NWB ASSESSMENT : Patient Disposition at Start of Session: Supine in Bed;Call [place] in Reach Patient Disposition at End of Session: OOB in Chair;Call [place] in Reach Tolerated Full Session Patient making progress with ambulation this visit but tires very quickly due to arm weakness. Goals ongoing. Physical Therapy Problem List: Pain;Decreased Strength;Functional Mobility Impairment;Impaired Self Care Patient /Caregiver Goals: Go To Rehab Goals for Plan of Care: Able to perform HEP with: Verbal Cues Only Rolling with: Verbal Cues Only Transfer supine to/from sit with: Contact Guard Assistance Transfer sit to/from stand with: Contact Guard Assistance Ambulate with: Contact Guard Assistance Distance: 20 Device: Wheeled Walker Ambulate up and down steps with: Contact Guard Assistance (When appropriate) Number of steps: 4 Device: Rail;Crutch(es) Progress Toward Goals: Progressing as expected Rehab Potential: Good PLAN: Treatment Frequency (times per week): 7 (2-7) Current admission Treatment Interventions: Education;Strengthening;Functional Mobility Training Plan of Care developed with: Patient TREATMENT INTERVENTIONS: Therapy Diagnosis: Reduced mobility-other;Abnormalities of gait and mobility-other Interventions Provided: Therapeutic Exercise (30194);Therapeutic Activity (02287) Therapeutic Exercise (02118) Treatment Minutes: 16 1 unit Skilled Intervention(s): Instruction in therapeutic exercise for both legs: ankle pump, quad set, glute set, adductor set, hip abduction/adduction, heel slide, short arc quad, straight leg raise and long arc quad x 12 reps. Min assist with right straight leg raise. Instructed patient on armchair pushups x 3-4 reps. Verbal and tactile cuing provided to breathe and maintain proper alignment. Therapeutic Activity (30286) Treatment Minutes: 14 1 unit Skilled Intervention(s): Instructed patient in supine to sit pushing with upper extremities to sit up with head of bed at 25 degrees. Movement is slow with assist with management of her legs. Instruction in sit to and from stand technique with proper hand placement and body positioning at edge of bed/chair. Patient completed 4 trials with emphasis on proper hand placement and eccentric control. Education with don/doff of left walking boot. Patient unable to don without assist. Patient ambulates with slow pace with cues to look up, avoid getting too close to front of walker and keep right foot off the floor. Chair follow for safety due to complaint of arm fatigue. Total Timed Code Treatment Minutes: 30 Total Treatment Time (minutes): 30 SUBJECTIVE: Current Hospital Course: Chart reviewed and no significant medical updates relevant to therapy were noted Reason for Physical Therapy Consult : post sx care, NWB R LE, WBAT L in boot Patient Report: Pain level 6/10 after activity. Complained of both arms tiring too quickly. Home Environment Patient Lives With: Family Assistance Available: 24 Hour Entry To Home: Stairs;Without Rail Number Of Stairs Into Home: 3 Number Of Stairs To Bed/Bath: 14 Stairs to Bed/Bath with: Unilateral Rail Prior Functional Level: Within Functional Limits OBJECTIVE: CURRENT FUNCTIONAL STATUS: Current Functional Mobility Assist Level Additional Information Rolling Contact Guard Assistance Supine to Sit Minimal Assistance Sit to Supine Scooting Sit to Stand Minimal Assistance Stand to Sit Minimal Assistance Bed to Chair Toilet/Commode Gait Minimal Assistance Gait Device: Wheeled Walker Gait Distance (feet): intervals of 5-6ft Stairs Curb Step Car Transfer General Gait Deviations: Step length decreased;Non-functional gait speed (NWB RLE) Please see discipline specific clinical documentation flowsheet for complete details for this therapy evaluation/treatment. SIGNATURE: Brooklyn Suero PTA PATIENT NAME: Karli Krishnamurthy DATE: March 21, 2018 TIME: 10:26 AM PROGRESS Observed: 03/21/2018 Status: COMPLETED Source: [place] 6:24 AM CLINIC OTHER CAMPUS REPOSITORY O ID: [id number] Author: Cynthia Dobson Service: Orthopaedic Surgery Author Type: Physician Type: Progress Notes Filed: 03/21/2018 5:33 PM Note Text: ORTHOPAEDIC SURGERY DAILY PROGRESS NOTE Patient Name: Karli Krishnamurthy Date of Evaluation: 03/21/2018 Admission Date: 03/18/2018 Time of Evaluation: 6:24 AM ASSESSMENT: 62yo F POD#2 s/p ORIF R trimalleolar ankle fracture, also with non-displaced L distal fibula fracture PLAN: - PT/OT: Non Weight Bearing right lower, Weight bearing as tolerated left lower in walker boot - DVT Prophylaxis: Lovenox 40mg SQ daily x 21 days total - Discharge planning: Residential Facility, determining location today - New diagnosis of DM - Consult medicine for management. INTERVAL HPI: Patient monitored, no new events overnight. Patient states that they are comfortable. Controlled pain. OBJECTIVE: BP 124/60 Pulse 93 Temp 37.1 ?C (98.8 ?F) (Oral) Resp 18 Ht 157.5 cm (5' 2.01) Wt 65.8 kg (145 lb) SpO2 93% BMI 26.51 kg/m? Intake/Output Summary (Last 24 hours) No intake/output data recorded. Exam: General: NAD, AAOx3 Extremities: Right Lower Extremity: Splint clean, dry and intact. SILT to 5 toes Motor intact to 5 toes BCR 5 toes [place] Barbara Mcclure MD Orthopaedic Surgery, PGY-4 Please page [phone] from 5p-6a and on weekends for any issues. Cell #: [phone] Pager #: [phone] 03/21/2018 6:24 AM Attending Note I evaluated the patient and personally participated in the copeland components. I agree with the resident's findings and plan with the following revisions and/or additions: HbA1c checked due to persistent elevated glucose. HbA1c 8.4. Patient is newly diagnosed DM. Will consult medicine to begin treatment for DM. Given her recent surgery, will be important to optimize blood sugars post op. Signature: Cynthia Dobson DPM Date: 03/21/2018 Time: 5:31 PM THERAPY NT Observed: 03/20/2018 Status: COMPLETED Source: [place] 11:16 AM CLINIC OTHER CAMPUS REPOSITORY O ID: [id number] Author: Luis Armando Farmer Service: Physical Therapy Author Type: Physical Therapist Type: Therapy (PT/OT/Speech/Resp) Filed: 03/20/2018 11:21 AM Note Text: Physical Therapy Evaluation SERVICE DATE: 03/20/2018 SERVICE TIME: 1040 to 1105 ROOM: [id number] Recommended Discharge Disposition: Acute Rehab Justification For Post Acute Needs: Anticipate patient will tolerate 3 hours of daily therapy at the time of admission to post-acute setting;Living the community premorbidly;Willing to participate PT Recommendations to Nursing: Transfer to/from chair;OOB for Meals;With assist of 1 person Device: Wheeled Walker PT 6 Clicks Score: 17 Precautions/Activity Restrictions: Weight Bearing Restrictions Extremity With Weight Bearing Restricted: Left Lower Extremity;Right Lower Extremity Left Lower Extremity Weight Bearing Status: WBAT (in Boot) Right Lower Extremity Weight Bearing Status: NWB ASSESSMENT : Pt difficulty with all mobility tasks and requires mod assist. Pt was independent with all mobility prior to hospitalization and will benefit from acute rehab at time of medical d.c. For continued PT. Patient presents with personal factors, comorbidities and results of the PT examination that require moderate complexity decision making. The patient requires skilled physical therapy to address multiple PT problems in order for the patient to return to a baseline functional level. . Requires skilled PT for functional mobility training, brace training, precaution training. Patient Disposition at Start of Session: Supine in Bed;Family Present Patient Disposition at End of Session: Supine in Bed;Family Present Tolerated Full Session Physical Therapy Problem List: Pain;Decreased Strength;Functional Mobility Impairment;Impaired Self Care Patient /Caregiver Goals: Go To Rehab Goals for Plan of Care: Able to perform HEP with: Verbal Cues Only Rolling with: Verbal Cues Only Transfer supine to/from sit with: Contact Guard Assistance Transfer sit to/from stand with: Contact Guard Assistance Ambulate with: Contact Guard Assistance Distance: 20 Device: Wheeled Walker Ambulate up and down steps with: Contact Guard Assistance (When appropriate) Number of steps: 4 Device: Rail;Crutch(es) Rehab Potential: Good PLAN: Treatment Frequency (times per week): 7 (2-7) Current admission Treatment Interventions: Education;Strengthening;Functional Mobility Training Plan of Care developed with: Patient TREATMENT INTERVENTIONS: Therapy Diagnosis: Reduced mobility-other;Abnormalities of gait and mobility-other Interventions Provided: Evaluation;Gait Training (04221);Therapeutic Activity (03239) $ Evaluation-Moderate (45996) Billed Units: 1 unit Therapeutic Activity (84440) Treatment Minutes: 4 1 unit Skilled Intervention(s): Instructed patient in supine to sit pushing with upper extremities to sit up Instructed patient in supine to and from sit pushing with upper extremities to sit up Instruction in stand to sit technique with lower extremities touching chair/bed and reaching back for surface Instruction in sit to and from stand technique with proper hand placement and body positioning at edge of bed/chair Education with nwb status R LE and WBAT on the L LE if in boot. Max assist to DENNIS walking boot. Gait Training (56616) Treatment Minutes: 4 0 units Skilled Intervention(s): Instruction in sit to stand technique with proper hand placement and body positioning at edge of bed/chair, Instruction in stand to sit technique with LE's touching chair/bed and reaching back for surface, Instruction in sequencing, gait pattern, Instruction in WB precautions and Instruction in use of equipment, cues for sequence and pattern Total Timed Code Treatment Minutes: 8 Total Treatment Time (minutes): 25 FUNCTIONAL G CODE: PT 6 Clicks Score: 17 (03/20/18 1040) Mobility: Walking and Moving Around Current Status (G8978): CK (03/20/18 1040) Mobility: Walking and Moving Around Goal Status (G8979): CJ (03/20/18 1040) Based on clinical assessment and the score on the 6 Clicks Functional Assessment Tool, the G code and corresponding severity modifiers are documented above. SUBJECTIVE: Current Hospital Course: Chart reviewed; The patient states she was came to us from her backyard when her left foot slipped causing her to put all her weight on her right ankle. She noticed immediate bilateral ankle pain right worse than left. Paramedics stated she did not have a pulse at the scene and relocated her dislocated ankle. 62 year old female with right ankle fracture dislocation, left distal fibula fracture . ORIF R trimalleolar ankle fracture Weight-bearing status: NWB RLE, WBAT LLE in boot Active Hospital Problems Diagnosis - Closed displaced trimalleolar fracture of right ankle PAST MEDICAL HISTORY Diagnosis Date - Anxiety disorder - NEGATIVE MEDICAL HISTORY PAST SURGICAL HISTORY Procedure Laterality Date - PAST SURGICAL HISTORY OF 1996 - REMOVAL GALLBLADDER 1981 Cholecystectomy - REMOVAL OF TONSILS,<10 Y/O 1974 Tonsillectomy Reason for Physical Therapy Consult : post sx care, NWB R LE, WBAT L in boot Patient Report: Pt willing to participate. Home Environment Patient Lives With: Family Assistance Available: 24 Hour Entry To Home: Stairs;Without Rail Number Of Stairs Into Home: 3 Number Of Stairs To Bed/Bath: 14 Stairs to Bed/Bath with: Unilateral Rail Prior Functional Level: Within Functional Limits OBJECTIVE: CURRENT FUNCTIONAL STATUS: Current Functional Mobility Assist Level Additional Information Rolling Contact Guard Assistance Supine to Sit Minimal Assistance Sit to Supine Minimal Assistance Scooting Minimal Assistance Sit to Stand Minimal Assistance Stand to Sit Minimal Assistance Bed to Chair Toilet/Commode Gait Minimal Assistance Gait Device: Wheeled Walker Gait Distance (feet): 2 Stairs Curb Step Car Transfer General Gait Deviations: Step length decreased;Non-functional gait speed Range of Motion: Lower Extremity Comments Right Lower Extremity ROM Comments: hip and knee wfl. Ankle NT Left Lower Extremity ROM Comments: Hip and knee WNL. Ankle could jena to neutral position only for boot Strength: Upper Extremity Comments;Lower Extremity Comments Right Upper Extremity Strength Comments: 4+ Left Upper Extremity Strength Comments: 4+ Right Lower Extremity Strength Comments: able to SLR Left Lower Extremity Strength Comments: able to SLR Please see discipline specific clinical documentation flowsheet for complete details for this therapy evaluation/treatment. SIGNATURE: Luis Armando Farmer PT PATIENT NAME: Karli Krishnamurthy DATE: March 20, 2018 TIME: 11:16 AM PROGRESS Observed: 03/20/2018 Status: COMPLETED Source: [facility] 6:51 AM [facility] OTHER CAMPUS REPOSITORY HNO ID: [id number] Author: Cynthia Dobson Service: Orthopaedic Surgery Author Type: Physician Type: Progress Notes Filed: 03/20/2018 5:19 PM Note Text: ORTHOPAEDIC SURGERY PROGRESS NOTE ASSESSMENT AND PLAN Karli Krishnamurthy is POD #1 status-post ORIF R trimalleolar ankle fracture with tight rope fixation of syndesmosis. Patient additionally with minimally displaced L distal fibula fracture. - Pain control. - Weight-bearing status: NWB RLE, WBAT LLE in boot. - Walker boot available in room. - DVT PPx: SCDs. Lovenox 40 mg QD. - PT/OT: NWB RLE. Appreciate recommendations. - Post-operative antibiotics (Ancef) completed. - Disposition: Pending PT evaluation, anticipate rehab. SUBJECTIVE No acute events overnight. Pain well controlled. No fevers, chills, chest pain, or shortness of breath. No new complaints. PHYSICAL EXAM Vitals BP 119/61 Pulse 82 Temp 36.1 ?C (97 ?F) (Temporal Artery) Resp 18 Ht 157.5 cm (5' 2.01) Wt 65.8 kg (145 lb) SpO2 94% BMI 26.51 kg/m? General NAD. Cooperative with interview. Right Lower Extremity Splint in place: clean, dry, and intact. Compartments soft and compressible. Tolerates passive stretch of digits. SILT in all toes. Wiggles all toes. DP/PT pulses palpable; BCR all digits. LABS Recent Labs 03/19/18 0332 03/18/18 1601 NA 137 132* K 3.8 3.9 CHLOR 106 100 CO2 27 25 BUN 14 14 CREAT 0.61 0.69 GLUC 159* 238* ANION 8 11 CA 8.9 9.2 WBC -- 8.5 HB -- 14.3 HCT -- 42.3 PLT -- 293 IMAGING Post-op x-rays of the R ankle show reduction of tibial and fibular fractures with good position of implants. William Sosa MD Orthopaedic Surgery, PGY-2 Pager: [phone] [facility] Attending Note I evaluated the patient and personally participated in the copeland components. I agree with the resident's findings and plan as documented and have discussed the case and management of the patient's care with the resident. PT recommending acute rehab. D/c following placement. Signature: Cynthia Dobson DPM Date: 03/20/2018 Time: 5:18 PM ANKLE 3V AP/LAT/OBL Observed: 03/19/2018 Status: F Source: [facility] 12:43 PM HEALTH SYSTEM REPOSITORY Performed at [facility] APPROVED BY: MACARIO RIVERA MD RIGHT ANKLE CLINICAL INDICATION: Right ankle surgery. COMPARISON: 03/18/2018 FINDINGS: Portable frontal, oblique and crosstable lateral views of the right ankle. There has been plate and screw fixation of the comminuted fracture of the distal fibular shaft is an additional stabilizing cerclage cable. There are two screws transfixing the medial malleolus fractur e with a metallic surgical button along the medial surface of the medial malleolus. Ankle mortise appears symmetric and the talar dome is intact. Alignment about the ankle and hindfoot is normal. Fra cture alignment appears anatomic. Surgical hardware is intact. IMPRESSION: 1. ORIF of fractures of the distal fibular shaft and medial malleolus as above. ANES POST Observed: 03/19/2018 Status: COMPLETED Source: [facility] 12:25 PM [facility] OTHER CAMPUS REPOSITORY O ID: [id number] Author: Ace Church Service: Anesthesiology Author Type: Physician Type: Anesthesia PostOp Filed: 03/19/2018 12:26 PM Note Text: POST ANESTHESIA EVALUATION NOTE SERVICE DATE: 03/19/2018 SERVICE TIME: 12:25 PM : 1955 Vitals: 03/19/18 0017 03/19/18 0335 03/19/18 0800 03/19/18 1118 Temp: 36.2 ?C (97.2 ?F) 36.3 ?C (97.3 ?F) (!) 35.3 ?C (95.5 ?F) 36.2 ?C (97.2 ?F) 03/19/18 1115 03/19/18 1130 03/19/18 1141 03/19/18 1200 BP: 134/78 126/70 122/67 125/70 03/19/18 1130 03/19/18 1141 03/19/18 1145 03/19/18 1200 Pulse: 93 96 93 91 03/19/18 1130 03/19/18 1141 03/19/18 1145 03/19/18 1200 Resp: 20 19 18 03/19/18 1130 03/19/18 1141 03/19/18 1145 03/19/18 1200 SpO2: 97% 91% 95% 91% Validated Vital Signs: Yes POST ANES STATUS: No apparent anesthetic complications. The patient is appropriately hydrated with stable respiratory and cardiovascular status. Patient has safe and adequate airway control. The patient has appropriate pain relief and no significant post operative nausea or vomiting. The patient has achieved baseline mental status. Intra-Operative Events: No Significant Anesthesia Events Further assessment by Anesthesia Service: None Other Remarks: SIGNATURE: Ace Church DO PATIENT NAME: Karli Krishnamurthy DATE: March 19, 2018 TIME: 12:25 PM PAGER/CONTACT #: [phone] NURSING PROG Observed: 03/19/2018 Status: COMPLETED Source: [facility] 12:25 PM [facility] REPOSITORY HNO ID: [id number] Author: Ainsley (Rn) SUNSHINE William Service: Nursing Author Type: Registered Nurse Type: Nursing Progress Note Filed: 03/19/2018 12:36 PM Note Text: Portable xrays done BRIEF OP NOT Observed: 03/19/2018 Status: COMPLETED Source: [facility] 11:22 AM [facility] REPOSITORY HNO ID: [id number] Author: Alhaji Garcia Service: Orthopaedic Surgery Author Type: Resident Type: Brief Op Note Filed: 03/19/2018 11:24 AM Note Text: BRIEF OPERATIVE / PROCEDURE NOTE LOG ID: [id number] SURGERY/PROCEDURE DATE: 03/19/2018 INCISION/PROCEDURE START TIME: 8:37 AM INCISION CLOSE/PROCEDURE END TIME: 11:12 AM SURGEON(S)/PROCEDURALIST(S) AND CLOTH BEAMER(S): Surgeon(s) and Role: * Cynthia Dobson - Primary * Alhaji Garcia - Resident - Assisting * William Sosa - Resident - Assisting No Additional Staff SURGERY/PROCEDURE(S): 1. ORIF R trimalleolar ankle fracture 2. Tight rope fixation R syndesmosis 3. Application R posterior short leg splint ANESTHESIA: General FINDINGS: comminuted fibula fracture ESTIMATED BLOOD LOSS: 50 mls SPECIMENS: None COMPLICATIONS: None PRE-OP/PRE-PROCEDURE DIAGNOSIS: Closed displaced trimalleolar fracture of right ankle [S82.851A] POST-OP/POST-PROCEDURE DIAGNOSIS: Closed displaced trimalleolar fracture of right ankle [S82.851A] POST OP PLAN: -Pain control -PT/OT NWB RLE, WBAT LLE in walker boot -DVT ppx: lovenox 40 daily -Ancef x 2 doses -Maintain splint -D/c planning SIGNATURE: Alhaji Garcia MD PATIENT NAME: Karli Krishnamurthy DATE: March 19, 2018 TIME: 11:22 AM PAGER/CONTACT #: OR ANKLE 2V AP/LAT Observed: 03/19/2018 Status: F Source: [facility] 11:15 AM HEALTH SYSTEM REPOSITORY Performed at [facility] APPROVED BY: MACARIO RIVERA MD CLINICAL INDICATION: ORIF right ankle fracture COMPARISON: Right ankle 03/18/2018 FINDINGS/ IMPRESSION: Three intraoperative fluoroscopic images of the right ankle. There is lateral plate and screw fixation of the comminuted fracture of the distal fibular shaft. This includes a stabilizing cerclage cabl e. There are 2 screws transfixing the medial malleolus fracture. There is a metallic surgical button along the medial surface of the base of the medial malleolus. Please see the patient's operative report for full details and findings. Total fluoroscopy time is 5 minutes. OPERATIVE NO Observed: 03/19/2018 Status: COMPLETED Source: [facility] 8:05 AM [facility] OTHER CAMPUS REPOSITORY HNO ID: [id number] Author: Cynthia Dobson Service: Orthopaedic Surgery Author Type: Physician Type: Operative Report Filed: 03/19/2018 8:31 PM Note Text: DATE OF SURGERY: 03/19/18 PREOPERATIVE DIAGNOSIS: Right bimalleolar ankle fracture dislocation with syndesmotic disruption/ Trimalleolar equivalent ankle fracture POSTOPERATIVE DIAGNOSIS: Right bimalleolar ankle fracture dislocation with syndesmotic disruption/ Trimalleolar equivalent ankle fracture PROCEDURES: Open reduction and internal fixation of right ankle fracture with syndesmotic stabilization SURGEON: Cynthia Dobson DPM. ASSISTANTS: William Sosa MD R; Alhaji Garcia MD R ANESTHESIA: General ESTIMATED BLOOD LOSS: 50mL MATERIALS: A 6 hole fibular recon plate with combination of 3.5 locking and nonlocking screws and 2.7 locking screws, one 4-0 partially threaded screw cannulated screw, one 3.5 cortical screw; one tightrope ? all arthrex; circlage wire COMPLICATIONS: None. HEMOSTASIS: Thigh tourniquet set at 300 mmHg. Please see nursing note for total time. INDICATIONS: This is a 62-year-old female patient currently admitted following fall at which time she sustained bilateral ankle fractures. Right ankle was dislocated and very unstable. This was able to be reduced but subsequently lost reduction and thus required more urgent stabilization. Discussion was held with patient and family regarding treatment options. Surgical fixation was recommended. The patient was educated on details of the procedure as well as medically reasonable risks, benefits, complications, post op prognosis and protocol. All questions were answered to her apparent satisfaction. No guarantees were given, nor were they implied. Consent form was signed. PROCEDURE IN DETAIL: After having received preoperative antibiotics and pneumatic stocking placed on nonoperative limb, the patient was taken to the operative suite where she was placed supine on the operating room table. The patient was then administered successful general anesthesia. Following successful induction of general anesthetic, attention was directed to the right lower extremity where a standard well- padded thigh tourniquet was placed to the right thigh in standard well- padded fashion. Attention was then directed overlying the right lower extremity, which was prepped and draped in routine sterile fashion. A time-out was performed confirming correct patient, location, and procedure. Following time-out, attention again was directed to the right lower extremity, which was elevated and exsanguinated utilizing an Esmarch bandage and the thigh tourniquet was elevated. The ankle was noted to be very unstable and easily dislocated and relocated with movement. Attention was first directed to the medial aspect of the ankle where a linear incision was then made overlying the medial malleolus. Blunt dissection was taken down to the level of the medial malleolus. The periosteum was noted to be disrupted overlying the fracture and the medial malleolar fracture was easily noted. The fracture site was then cleaned of interposing soft tissue and debris. The medial shoulder of the talus was also examined and the cartilage in this area was noted to be scuffed without overt osteochondral defect noted. Following this, the fracture was site was flushed with sterile saline. Comminution was noted to the anterior aspect of the medial malleolar fracture and small bony fragements were noted in the soft tissue surrounding the fracture. The medial malleolar fracture was reduced using pointed reduction forceps and pinned using guidewire for the 4.0 partially threaded screw set. Reduction was confirmed clinically as well as fluoroscopically. A 4.0 cannulated partially threaded screw was then placed across the fracture site in standard fashion posteriorly and solid 3.5 cortical positional screw placed across the fracture anterior. The anterior screw was not placed in lag screw fashion due to comminution and missing bone fragments in this area as did not want to lose reduction. Screw positioning was confirmed fluoroscopically and good screw positioning as well as reduction of the fracture was confirmed clinically as well as fluoroscopically. Attention was then directed laterally overlying the fibula where a standard lateral incision was made overlying the fibula. The incision was made first sharply and then bluntly with blunt dissection taken down to the level of the fibular periosteum. A periosteal incision was made overlying the fibula to allow for access to the fibular fracture. The ankle fracture was noted to the fibula with significant comminution noted. Approximately 4-5 fracture fragments were noted within the fracture site. Interposing soft tissue and debris were removed. Do to this comminution which was not amenable to primary fixation, bridge plating was elected to be proceeded upon. The fibula was pulled out to length using reduction forceps. A temporary k-wire was placed in the distal portion of the lateral malleolus and driven in to the talus to maintain this length. Fibula length was confirmed fluoroscopically. The fracture fragments were reduced centrally. Good reduction of the fractures were noted both clinically as well as radiographically and fibula was noted to be out to length. A 6-hole arthrex fibular recon plate was then placed spanning the fracture on lateral fibula. The plate was then fixated in place, utilizing combination of 3.5 locking and nonlocking screws proximal to the comminuted fracture site and 2.7 locking screws distal to the comminuted fracture site. Cerclage wire was placed around more proximal aspect of comminution to aid in maintenance of their position. Fluoroscopy was then utilized to confirm plate and screw placement. The syndesmosis was noted to be disrupted on direct visualization with instability noted. Due to this, a tightrope was then placed across the syndesmosis in standard fashion. Repeat syndesmotic stress testing was then performed and no syndesmotic instability or medial clear space widening was noted. The incision site was then flushed with copious amounts of sterile saline. Deep closure was performed utilizing 0 Vicryl and subcutaneous closure was performed utilizing 3-0 Vicryl. The tourniquet was let down prior to closure and all bleeders were cauterized as appropriate. Skin closure was performed utilizing 3-0 nylon. Xeroform and dry sterile dressings were placed overlying the area. A modified Dacosta compressive dressing as well as a posterior splint were applied to the right lower extremity. The patient tolerated the procedure well and without complication and left the operating room with vital signs stable and neurovascular status intact to right lower extremity. Following postoperative monitoring in the PACU, the patient will be readmitted to the floor for postoperative pain control and physical therapy. Cynthia Dobson DPM ANES PREOP Observed: 03/19/2018 Status: COMPLETED Source: [facility] 7:54 AM CLINIC OTHER CAMPUS REPOSITORY HNO ID: [id number] Author: Ace Church Service: Anesthesiology Author Type: Physician Type: Anesthesia PreOp Filed: 03/19/2018 8:25 AM Note Text: ANESTHESIOLOGY DAY OF SURGERY NOTE SERVICE DATE: 03/19/2018 SERVICE TIME: 7:54 AM : 1955 Procedure(s) (LRB): APPLICATION EXTERNAL FIXATOR FOOT (Right) ORIF ANKLE TRIMALLEOLAR, WITHOUT FIXATION POSTERIOR LIP (Right) Surgeon(s): Cynthia Morejon (Jean Pierre) Angel Estimated body mass index is 26.51 kg/m? as calculated from the following: Height as of this encounter: 157.5 cm (5' 2.01). Weight as of this encounter: 65.8 kg (145 lb). Most recent hematocrit and potassium results: Hematocrit 42.3 03/18/2018 Potassium 3.8 03/19/2018 ANES DOS/PREOP NOTE: Vitals: 03/18/18 2300 03/19/18 0017 03/19/18 0335 03/19/18 0800 BP: 118/73 105/51 110/60 108/70 Pulse: 89 74 78 81 Resp: 18 18 18 16 Temp: 36.2 ?C (97.2 ?F) 36.3 ?C (97.3 ?F) (!) 35.3 ?C (95.5 ?F) TempSrc: Temporal Artery Temporal Artery SpO2: 99% 94% 96% Weight: 65.8 kg (145 lb) Height: 157.5 cm (5' 2.01) ACTIVE PROBLEM LIST Closed Displaced Trimalleolar Fracture of Right Ankle PAST MEDICAL HISTORY Diagnosis Date - Anxiety disorder - NEGATIVE MEDICAL HISTORY PAST SURGICAL HISTORY Procedure Laterality Date - PAST SURGICAL HISTORY OF 1996 - REMOVAL GALLBLADDER 1981 Cholecystectomy - REMOVAL OF TONSILS,<12 Y/O 1973 Tonsillectomy FAMILY HISTORY Problem Relation Age of Onset - Coronary Artery Disease Mother - Stroke Father - Lipids Father - Coronary Artery Disease Father - Diabetes Father Social History: Social History Substance Use Topics - Smoking status: Never Smoker - Smokeless tobacco: Never Used - Alcohol use Yes Comment: socially No current facility-administered medications on file prior to encounter. Current Outpatient Prescriptions on File Prior to Encounter: citalopram hydrobromide (CELEXA) 10 mg tablet Take 10 mg by mouth once daily. Current Facility-Administered Medications: [MAR Hold due to Transfer] citalopram hydrobromide 10 mg tablet (CeleXA) 10 mg ORAL DAILY Luis A (Res) Ortiz [MAR Hold due to Transfer] morphine 2 mg injection 2 mg INTRAVENOUS q 2 H PRN Luis A (Res) Ortiz 2 mg at 03/19/18 0335 [MAR Hold due to Transfer] ondansetron (PF) 4 mg injection (ZOFRAN) 4 mg INTRAVENOUS q 6 H PRN Luis A (Res) Ortiz [MAR Hold due to Transfer] HYDROcodone 5 mg - acetaminophen 325 mg tablet (NORCO) 1-2 tablet ORAL q 4 H PRN Luis A (Res) Ortiz 2 tablet at 03/19/18 013 [MAR Hold due to Transfer] lactated ringers infusion 100 mL/hr INTRAVENOUS CONTINUOUS Luis A (Res) Ortiz Last Rate: 100 mL/hr at 03/19/18 0138 100 mL/hr at 03/19/18137 [MAR Hold due to Transfer] lidocaine 10 mg/mL (1 %) 200 mg injection (XYLOCAINE) 20 mL INTRADERMAL ONCE Luis A (Res) Ortiz Allergies: ALLERGIES Allergen Reactions - Codeine Mental Status Change hallucinations DOS EXAM: Adequate NPO status: Yes Anesthetic risks, benefits, alternatives, personnel and consent discussed: Yes Patient agrees to proceed: Yes Previous Anesthesia: No history of adverse event. Airway Assessment: MP 2; Neck ROM: Full ROM without neurologic symptoms; Airway Evaluation: Small Mouth Opening Symptoms of Sleep Apnea: Age over 50 (62 year old) Dentition: Teeth intact Additional Physical Exam: Lungs: Patient health status unchanged since recent history and physical. See history and physical for exam findings. Cardiac: Patient health status unchanged since recent history and physical. See history and physical for exam findings. Additional Pertinent Findings: N/A Blood Products: Not anticipated for this procedure. Anesthetic Plan: General, Standard ASA Monitors Pain Management Plan: Parenteral or Oral ASA Class: 2 Other Medical Problems: None Chronic Beta Akilah medication administered within 24 hours: N/A I have interviewed and examined the patient. I have reviewed the medical record and/or the pre-anesthesia evaluation, pertinent labs, and test results. Significant changes in the patient's condition since the History and Physical, not otherwise documented in primary service progress notes: No This contains updated information obtained within 48 hours of Surgery/Procedure. SIGNATURE: Ace Church DO PATIENT NAME: Karli Krishnamurthy DATE: March 19, 2018 TIME: 8:24 AM CSN: [id number] PROGRESS Observed: 03/19/2018 Status: COMPLETED Source: [facility] 6:58 AM CLINIC OTHER CAMPUS REPOSITORY O ID: [id number] Author: Luis Ortiz Service: Orthopaedic Surgery Author Type: Resident Type: Progress Notes Filed: 03/19/2018 7:00 AM Note Text: ORTHOPAEDIC SURGERY DAILY PROGRESS NOTE Patient Name: Karli Krishnamurthy Date of Evaluation: 03/19/2018 Admission Date: 03/18/2018 Time of Evaluation: 6:58 AM ASSESSMENT: 62 year old female with R trimalleolar ankle fx/dx PLAN: -Pain Control -Maintain splint RLE -DVT Prophylaxis: To determine following surgery. SCDs LLE. -Ice/elevate extremity -NPO/IVF -OR today for ex fix vs ORIF INTERVAL HPI: Patient monitored, no new events overnight. Pain in R leg. Denies nausea/vomitting. OBJECTIVE: BP 110/60 Pulse 78 Temp 36.3 ?C (97.3 ?F) (Temporal Artery) Resp 18 Ht 157.5 cm (5' 2.01) Wt 65.8 kg (145 lb) SpO2 96% BMI 26.51 kg/m? Intake/Output Summary (Last 24 hours) No intake/output data recorded. Exam: General: NAD, AAOx3 Extremities: Splint c/d/i. SILT over toes. BCR in all toes. Wiggles toes. Labs: BMP: Sodium 137 03/19/2018 Potassium 3.8 03/19/2018 Chloride 106 03/19/2018 CO2 27 03/19/2018 BUN 14 03/19/2018 Creatinine 0.61 03/19/2018 Glucose 159 03/19/2018 CBC: WBC 8.5 03/18/2018 HGB 14.3 03/18/2018 Hematocrit 42.3 03/18/2018 Platelet Count 293 03/18/2018 COAGS: No results found for this basename: aptt,inr SED RATE/CRP: No results found for this basename: wsr:*,crp:* Imaging: XR R ankle demonstrates a dislocated R trimalleolar equivalent ankle fracture Luis Ortiz MD Resident, Orthopaedic Surgery Pager: [phone] 03/19/2018 6:58 AM BASIC PANEL Collected: 03/19/2018 Status: F Source: [facility] 3:32 AM HEALTH SYSTEM REPOSITORY TYPE CODE TESTS RESULT OUT OF REFERENCE UNITS RANGE LAB NA(LOINC) 136-145 mEq/L Sodium Blood 137 LAB K(LOINC) 3.5-5.1 mEq/L Potassium Blood 3.8 LAB CL(LOINC) 98-107 mEq/L Chloride Blood 106 LAB CO2(LOINC) 21-32 mEq/L CO2 Blood 27 LAB GLU(LOINC) 70-99 mg/dL Glucose High Blood 159 LAB BUN(LOINC) 7-18 mg/dL BUN Blood 14 LAB CA(LOINC) 8.5-10.1 mg/dL Calcium Blood 8.9 LAB ANGAP(LOIN 8-16 C) Anion Gap 8 LAB CREA(LOINC 0.51-0.95 mg/dL ) Creatinine Blood 0.61 Performed By: #### P8 #### [place] [address] MDRD GFR Collected: 03/19/2018 Status: F Source: [facility] 3:32 AM HEALTH SYSTEM REPOSITORY TYPE CODE TESTS RESULT OUT OF RANGE REFERENCE UNITS LAB GFRFN(LOINC >60mL/min/1.73m ) 2 eGFR >60 Result Comment: If the patient is , multiply the result by 1.210. Performed By: #### GFR #### [place] [address] TYPE AND SCREEN Collected: 03/19/2018 Status: F Source: [facility] 3:32 AM HEALTH SYSTEM REPOSITORY TYPE CODE TESTS RESULT OUT OF REFERENCE UNITS RANGE LAB ABO(LOINC) O ABO Group LAB LEAD CLINICAL RESEARCH COORDINATOR(LOINC ) RH Type Positive LAB ABSCR(LOIN C) Antibody NEGATIVE Screen LAB BBCMT(LOIN C) Comment See Below Result Comment: Screen &/or Xmatch expires in 3 days at 12 midnight. Redraw patient at that time. Performed By: #### T&S #### [facility] [address] [place] [id number] ANKLE 3V AP/LAT/OBL Observed: 03/19/2018 Status: F Source: [facility] 12:59 AM HEALTH SYSTEM REPOSITORY Performed at [facility] APPROVED BY: MAYURI SALMON MD TECHNIQUE: ANKLE 3V AP/LAT/OBL RIGHT - EXAM DATE: 03/19/2018 12:59 AM CLINICAL HISTORY: Dislocation, ankle COMPARISON: 03/18/2018 RESULT: 3 views of the right ankle in cast are submitted for evaluation. The concavity of the fracture involving the distal right fibula and the diastases of the medial malleolar fracture remains unchanged from the prior study. The widening of the lateral ankle mortise is also unchanged. IMPRESSION: Unchanged in alignment. NURSING PROG Observed: 03/19/2018 Status: COMPLETED Source: [facility] 12:35 AM [facility] CAMP[facility] REPOSITORY HNO ID: [id number] Author: Niyah (Rn) SUNSHINE Salinas Service: Nursing Author Type: Registered Nurse Type: Nursing Progress Note Filed: 03/19/2018 12:37 AM Note Text: Spoke to Dr. Ortiz (ortho #[id number]); pt ordered NPO for meat packer, no fluids ordered, pt states she has not voided since early afternoon and feels no urge, has not had anything to eat or drink since yesterday. Dr. Ortiz to enter low rate IVF. EKG (AK,AV,EU,FV,HL,SINAI,MM,SP) Observed: Status: F Source: [facility] 03/18/2018 11:25 CLINIC OTHER PM CAMPUS REPOSITORY NAME : KARLI KRISHNAMURTHY PID : [id number] : 1955 Gender : Female Race : ORD : [id number] Procedure Date : Mar 18 2018 23:25 Edit Date : Mar 26 2018 13:11 Diagnosis:NORMAL SINUS RHYTHM NORMAL ECG NO PREVIOUS ECGS AVAILABLE Confirmed by Ramiro Hameed ([id number]) on 03/26/2018 1:11:44 PM Ventricular Rate : 79 BPM Atrial Rate : 79 BPM P-R Interval : 148 ms QRS Duration : 80 ms Q-T Interval : 390 ms QTC Calculation(Bezet) : 447 ms P [place] : 32 degrees R [place] : 27 degrees T [place] : 34 degrees Test Reason : Check QT Location : 4 : [facility] 5262 Overread By : Ramiro Hameed Editted By : Ramiro Hameed Referred By : CHRIS CASAS Acquired by : Magy Wheeler ED NOTE Observed: 03/18/2018 Status: COMPLETED Source: [facility] 11:15 PM CLINIC OTHER CAMPUS REPOSITORY HNO ID: [id number] Author: Magy JuddRn) SUNSHINE Harmon Service: Emergency Medicine Author Type: Registered Nurse Type: ED Notes Filed: 03/18/2018 11:27 PM Note Text: Xray room called. Pt ready for xray. ANKLE 3V AP/LAT/OBL Observed: 03/18/2018 Status: F Source: [facility] 11:10 PM HEALTH SYSTEM REPOSITORY Performed at [facility] APPROVED BY: MAYURI SALMON MD TECHNIQUE: ANKLE 3V AP/LAT/OBL RIGHT - EXAM DATE: 03/18/2018 11:10 PM CLINICAL HISTORY: Dislocation, ankle COMPARISON: Comparison to the immediate study dating 03/18/2018. RESULT: 4 views of the right ankle in cast are submitted for evaluation. The fractures involving the distal shaft of the right fibula and the medial malleolus are once again demonstrated. On the current study there is asymmetric widening of the medial ankle mortise. IMPRESSION: On the current exam there is asymmetric medial widening of the ankle mortise. ED PROV NOTE Observed: 03/18/2018 Status: COMPLETED Source: [facility] 10:25 PM CLINIC OTHER CAMPUS REPOSITORY HNO ID: [id number] Author: Chris Casas MD Service: Emergency Medicine Author Type: Physician Type: ED Provider Notes Filed: 03/18/2018 10:43 PM Note Text: ED Provider Note Patient Name: Karli Krishnamurthy SERVICE DATE: 03/18/18 History Patient presents with: Fall: transfer from [place] for mechanical fall earlier today off porch around 5pm, -LOC, -hit head, -etoh, mini ankle fx, right ankle splinted, left ankle air cast This is a 62-year-old white female states that she was carrying something and stepped on an umbrella pole base inverting her left ankle and then she slid and injured her right ankle as well. She said her right ankle hurts worse than her left. She was seen at [place] [facility] and diagnosed with bilateral ankle fractures reportedly on scene had decreased pulse and deformity in the right ankle and reduced partially with regaining of pulse distally. She was transferred here for orthopedic evaluation. She denies any other injury such as head trauma, LOC, neck pain, back pain, abdominal pain. She did complain of right elbow pain earlier but she states that that is improved. No numbness or paresthesias. No previous ankle fractures or surgeries. PAST MEDICAL HISTORY Diagnosis Date - Anxiety disorder - NEGATIVE MEDICAL HISTORY PAST SURGICAL HISTORY Procedure Laterality Date - PAST SURGICAL HISTORY OF 1996 - REMOVAL GALLBLADDER 1981 Cholecystectomy - REMOVAL OF TONSILS,<12 Y/O 1973 Tonsillectomy FAMILY HISTORY Problem Relation Age of Onset - Coronary Artery Disease Mother - Stroke Father - Lipids Father - Coronary Artery Disease Father - Diabetes Father Social History Social History Main Topics - Smoking status: Never Smoker - Smokeless tobacco: Never Used - Alcohol use Yes Comment: socially - Drug use: No - Sexual activity: No ALLERGIES Allergen Reactions - Codeine Mental Status Change hallucinations Review of Systems All other systems reviewed and are negative. Physical Exam BP 152/74 Pulse 95 Temp (Src) 97.5 (Oral) Resp 16 Ht 5' 2 (1.58m) Wt 145 lb (65.8kg) SpO2 95% BMI 26.51 kg/(m2). Physical Exam Constitutional: She is oriented to person, place, and time. She appears well-developed and well-nourished. HENT: Head: Normocephalic and atraumatic. Right Ear: Tympanic membrane, external ear and ear canal normal. Left Ear: Tympanic membrane, external ear and ear canal normal. Mouth/Throat: Uvula is midline, oropharynx is clear and moist and mucous membranes are normal. Mucous membranes are not dry. Eyes: Pupils are equal, round, and reactive to light. Conjunctivae and EOM are normal. Right conjunctiva is not injected. Left conjunctiva is not injected. No scleral icterus. Neck: Full passive range of motion without pain. Neck supple. No JVD present. No spinous process tenderness and no muscular tenderness present. Normal range of motion present. Cardiovascular: Normal rate, regular rhythm, normal heart sounds and intact distal pulses. Exam reveals no gallop and no friction rub. No murmur heard. Pulmonary/Chest: Effort normal and breath sounds normal. No stridor. No respiratory distress. She has no wheezes. She has no rhonchi. She has no rales. She exhibits no tenderness, no deformity and no swelling. Abdominal: Soft. Bowel sounds are normal. She exhibits no distension. There is no tenderness. There is no CVA tenderness. Genitourinary: Genitourinary Comments: Pelvic bones stable and nontender Musculoskeletal: She exhibits no edema. Bilateral hips nontender knees nontender, distal fibula tender on the left ankle, no base of the fifth metatarsal tenderness, no Achilles tendon tenderness, Achilles is intact. Right ankle unstable with obvious deformity, DP and PT pulses are palpable capillary refill and sensation motor intact distally. Right knee is nontender. Right foot nontender. Lymphadenopathy: She has no cervical adenopathy. Neurological: She is alert and oriented to person, place, and time. No cranial nerve deficit. No focal deficits Skin: Skin is warm, dry and intact. Bruising noted. No rash noted. Bruising noted in the right ankle and the left lateral ankle Diagnostic Testing ED Labs Ordered and Reviewed - No data to display Procedures ED Course / Clinical Impression ED Course as of Mar 18 2242 Chris Casas's Documentation Fri Mar 18, 2018 2138 Orthopedics at bedside already Clinical Impressions as of Mar 18 2242 Closed trimalleolar fracture of right ankle, initial encounter Closed avulsion fracture of distal end of left fibula, initial encounter MDM / Disposition / Plan This is a 62-year-old presenting with ankle fractures transferred from [facility]. I reviewed the x-rays, orthopedics was at bedside while I was in the room with my initial assessment as well. The left ankle x-rays appear to have a Deleon A distal fibula fracture and no clinical signs of instability or ligamentous disruption. The right ankle x- rays and tib-fib x-rays appear to have an unstable trimalleolar fracture. Orthopedics was consulted and stabilized the right ankle fracture and admitted. They requested a walking boot for the left ankle. The patient was ADMITTED TO: Regular nursing floor. Condition at time of disposition: stable SIGNATURE: MD Chris Pratt MD 03/18/18 2243 ANKLE 3V AP/LAT/OBL Observed: 03/18/2018 Status: F Source: [facility] 10:25 PM HEALTH SYSTEM REPOSITORY Performed at [facility] APPROVED BY: CHRISTINA SEVERINO MD EXAMINATION: ANKLE 3V AP/LAT/OBL RIGHT CLINICAL HISTORY: Postreduction Technique: ANKLE 3V AP/LAT/OBL RIGHT -- with views on images Comparison: Study dated earlier in the day at 4:33 PM RESULT: There has been interval placement of splint which partially scares visualization of bony detail. There has been interval reduction of the tibiotalar joint. There is improved alignment at the joint alt leilani there continues to be mild lateral subluxation of the talar dome in relation to the tibial plafond. Medial malleolus fracture fragment continues to be mildly displaced laterally. There is improv ed alignment of the distal fibular fracture. There is overlying soft tissue swelling. IMPRESSION: Interval reduction and placement of splint as detailed above HISTORY PHYSICAL Observed: 03/18/2018 Status: COMPLETED Source: [facility] 9:10 PM CLINIC OTHER CAMPUS REPOSITORY HNO ID: [id number] Author: Cynthia Dobson Service: Orthopaedic Surgery Author Type: Physician Type: HANDP Filed: 03/19/2018 8:05 AM Note Text: ORTHOPAEDIC SURGERY HANDP Pt: KARLI KRISHNAMURTHY Date of admssion: 03/18/2018 Admitting Physician: Dr. Lorne Magallanes, Orthopedic Surgery Chief Complaint: Bilateral ankle pain HPI: 62 year old female presenting today as a transfer from [facility] ED after sustaining a fall earlier today. The patient states she was came to us from her backyard when her left foot slipped causing her to put all her weight on her right ankle. She noticed immediate bilateral ankle pain right worse than left. Paramedics stated she did not have a pulse at the scene and relocated her dislocated ankle. She was seen at [place] [facility] emergency department, where she was found to have bilateral ankle fractures and she was transferred to [facility] for further orthopedic care. She denies other areas of pain. She denies loss of consciousness. She denies numbness or tingling in her bilateral lower extremities. PAST MEDICAL HISTORY Diagnosis Date - NEGATIVE MEDICAL HISTORY PAST SURGICAL HISTORY Procedure Laterality Date - PAST SURGICAL HISTORY OF 1996 - REMOVAL GALLBLADDER 1981 Cholecystectomy - REMOVAL OF TONSILS,<12 Y/O 1973 Tonsillectomy Allergies: Codeine No current facility-administered medications for this encounter. Current Outpatient Prescriptions: citalopram hydrobromide (CELEXA) 10 mg tablet Take 10 mg by mouth once daily. FH: Non-contributory. Negative for any bleeding or clotting disorders. Social Hx: Denies tobacco, alcohol illicit drug abuse. Ambulates without assistance at baseline. Lives at home with her . ROS: 10 pt ROS neg except in HPI O: Vitals: BP 152/74 Pulse (!) 95 Temp 36.4 ?C (97.5 ?F) (Oral) Resp 16 Ht 157.5 cm (5' 2) Wt 65.8 kg (145 lb) SpO2 95% BMI 26.52 kg/m? Labs: Recent Labs 03/18/18 1601 NA 132* K 3.9 CHLOR 100 CO2 25 BUN 14 CREAT 0.69 GLUC 238* ANION 11 CA 9.2 WBC 8.5 HB 14.3 HCT 42.3 PLT 293 Physical exam: General: AANDO x 3; NAD. Cooperative throughout entire interview Head: Atraumatic Neck: supple Cards: RRR Lungs: Non-labored breathing Abdomen: S/nt/nd Neuro: Grossly intact Extremities: RLE: Obvious deformity to R ankle. No open wounds or lacerations. Diffuse TTP. SILT s/s/sp/dp/t. 2+ dp pulse. BCR in all toes. Able to wiggle toes. No TTP over knee or hip. LLE: Swelling and ecchymosis over L lateral ankle. No open wounds or lacerations. TTP over lateral ankle. No medial TTP. No TTP over knee or hip. SILT s/s/sp/dp/t. 2+ dp pulse. Wiggles toes. Imaging: Multiple views of Right ankle reviewed and demonstrate a posterior lateral ankle fracture dislocation with a comminuted Deleon C distal fibula fracture and a transverse avulsion fracture off the medial malleolus. X-rays of the left ankle demonstrates a small cortical avulsion over the medial distal fibula with no other obvious fractures. Procedure Note: The risks/limitations/benefits/alternatives were discussed with the patient. The patient agreed to continue. Timeout performed. Site identified. Landmarks marked. 12 cc 1% lidocaine without epinephrine injected into ankle joint via anteromedial approach. Reduction maneuver performed. Splint applied and molded. Patient tolerated procedure well. Post reduction xrays demonstrate improved alignment of the tibiotalar joint. A/P: 62 year old female with right ankle fracture dislocation, left distal fibula fracture - Admit 52b - Pain control - Maintain splint RLE - NWB RLE - Elevate/ice RLE - BMP in am to assess blood glucose - Plan for OR 03/20/18 vs 03/21/18 D/w Dr. Dobson, all in agreement Luis Ortiz MD 9:10 PM March 18, 2018 Attending Note I evaluated the patient and personally participated in the copeland components. I agree with the resident's findings and plan as documented and have discussed the case and management of the patient's care with the resident. Patient with recurrent dislocation following reduction. OR today for ORIF verse ex fix. I have educated the patient on the details of the procedures as well as medically reasonable risks, benefits, alternatives and prognosis. I also educated the patient on perioperative management including preoperative medical clearance, preoperative physical therapy consultation, postoperative care and rehabilitation, anticipated time to full weightbearing, return to shoes and maximum medical improvement, Lastly I educated that patient to their apparent understanding on potential complications including but not limited to infection, recurrence, over correction or under correction, painful hardware, persistent pain, swelling or disability, nerve injury or entrapment, bone and soft tissue healing complications, complications with anesthesia and deep venous thrombosis/ pulmonary embolism. Anticipate WB as tolerated to left ankle in pneumatic boot. PT post op for evaluation. May need placement given bilateral ankle fractures. Signature: Cynthia Dobson DPM Date: 03/19/2018 Time: 750AM ED NOTE Observed: 03/18/2018 Status: COMPLETED Source: [facility] 9:02 PM [facility] REPOSITORY HNO ID: [id number] Author: Anne JuddRn) Wilfredo, RN Service: (none) Author Type: Registered Nurse Type: ED Notes Filed: 03/18/2018 9:02 PM Note Text: Bed: 28-ED Expected date: Expected time: Means of arrival: Comments: Transfer- bilateral leg fx ED NOTE Observed: 03/18/2018 Status: COMPLETED Source: [facility] 8:15 PM [facility] REPOSITORY HNO ID: [id number] Author: Aleks JuddRn) Mahesh, RN Service: Emergency Medicine Author Type: Registered Nurse Type: ED Notes Filed: 03/18/2018 8:36 PM Note Text: Verbal report given to EMS for transfer. Denies questions. Pt transferred from ED cot to EMS cot, tolerated well. Pt left ED with right ankle splint and left ankle air cast in place. AANDOx3. Pt denies questions or needs at departure. ED NOTE Observed: 03/18/2018 Status: COMPLETED Source: [facility] 8:15 PM [facility] RE[facility]IT[facility] HNO ID: [id number] Author: Iris JuddRn) SUNSHINE Rogers Service: Emergency Medicine Author Type: Registered Nurse Type: ED Notes Filed: 04/04/2018 9:50 AM Note Text: Chart accessed on 04/04 for chart audit pi ED NOTE Observed: 03/18/2018 Status: COMPLETED Source: [facility] 6:52 PM CLINIC MAIN CAMPUS REPOSITORY HNO ID: [id number] Author: Aleks JuddRn) Mahesh RN Service: Emergency Medicine Author Type: Registered Nurse Type: ED Notes Filed: 03/18/2018 6:53 PM Note Text: Air cast applied to left ankle per dr allen. Pt tolerated well. States decreased her pain to a 5 and no longer wants any pain medication at this time. Will continue to monitor. ED NOTE Observed: 03/18/2018 Status: COMPLETED Source: [facility] 6:34 PM [facility] REPOSIT[facility] HNO ID: [id number] Author: Maria Alejandra JuddRn) SUNSHINE Elizabeth Service: Emergency Medicine Author Type: Registered Nurse Type: ED Notes Filed: 03/18/2018 6:35 PM Note Text: [facility] called for transport. Spoke with Dana. ETA 90 min. ED NOTE Observed: 03/18/2018 Status: COMPLETED Source: [place] 6:27 PM [facility] RE[facility] HNO ID: [id number] Author: Maria Alejandra JuddRn) SUNSHINE Elizabeth Service: Emergency Medicine Author Type: Registered Nurse Type: ED Notes Filed: 03/18/2018 6:34 PM Note Text: Per Janet from [facility] transfer center, pt to go thru [facility] ER. ER called and Dr. Mtz speaking with Dr. Morris regarding transfer. Dr. Marc will be the accepting ortho physician. ED NOTE Observed: 03/18/2018 Status: COMPLETED Source: [facility] 6:15 PM [facility] RE[facility] HNO ID: [id number] Author: Aleks JuddRn) Mahesh RN Service: Emergency Medicine Author Type: Registered Nurse Type: ED Notes Filed: 03/18/2018 6:38 PM Note Text: Right ankle reduction with moderation sedation was preformed at bedside. Pt required increased O2 during procedure for pulse ox of 87%, NC increased from 2L to 6L by RT. Pt's quickly came up above 92%. When patient awoke, she was AANDOx3 and drowsy. No confusion. Pt was updated on how procedure went by Dr. Mtz. Pt vitals and O2 back to baseline after procedure. Pt told she will need to be transferred to [facility] for surgery. Pt and spouse denies questions or needs. ED NOTE Observed: 03/18/2018 Status: COMPLETED Source: [place] 6:12 PM [facility] REPOSITORY HNO ID: [id number] Author: Maria Alejandra JuddRn) SUNSHINE Elizabeth Service: Emergency Medicine Author Type: Registered Nurse Type: ED Notes Filed: 03/18/2018 6:13 PM Note Text: [facility] transfer line contacted for admission for ortho services. Spoke with Janet. Awaiting callback from physician. ED NOTE Observed: 03/18/2018 Status: COMPLETED Source: [place] 6:04 PM [facility] REPOSITORY HNO ID: [id number] Author: Aleks JuddRn) SUNSHINE Aragon Service: Emergency Medicine Author Type: Registered Nurse Type: ED Notes Filed: 03/18/2018 6:15 PM Note Text: Moderate sedation and procedure ended at this time. Pt tolerated well. ED NOTE Observed: 03/18/2018 Status: COMPLETED Source: [place] 5:58 PM [facility] REPOSITORY HNO ID: [id number] Author: Aleks JuddRn) Mahesh, RN Service: Emergency Medicine Author Type: Registered Nurse Type: ED Notes Filed: 03/18/2018 6:14 PM Note Text: Moderate procedure and reduction of right ankle procedure starts at this time. Ana Hoang H.Dodd and Janny URBINA at bedside. See paper documentation. ED NOTE Observed: 03/18/2018 Status: COMPLETED Source: [place] 5:30 PM [facility] REPOSITORY HNO ID: [id number] Author: Aleks JuddRn) Mahesh RN Service: Emergency Medicine Author Type: Registered Nurse Type: ED Notes Filed: 03/18/2018 6:39 PM Note Text: Dr. Mtz at bedside explaining procedure. Pt signed consent. Pt was educated on medication propofol for the sedation, explained uses, risks, and side effects. Pt denies any questions. ANKLE 3V AP/LAT/OBL Observed: 03/18/2018 Status: F Source: [facility] 4:55 PM HEALTH SYSTEM REPOSITORY Performed at [facility] APPROVED BY: Dylan Herr MD EXAM TITLE: RIGHT TIBIA AND FIBULA AND RIGHT ANKLE DATE: 03/18/2018 16:21 COMPARISON: None. CLINICAL INDICATION/HISTORY: Fall, pain TECHNIQUE: AP and lateral views of the right tibia and AP and lateral views of the right ankle are presented. FINDINGS: There is a comminuted angulated fracture through the distal aspect of the fibula at and just above the level of the tibias fibular syndesmosis. There is a fracture through the lateral malleolus. The a nkle mortise is asymmetric with widening medially suggesting ligamentous disruption. No additional fractures are identified. Soft tissues are unremarkable. IMPRESSION: Comminuted angulated fracture through the distal aspect of the fibula. Moderately displaced fracture through the medial malleolus the ankle. There is widening of the tibiotalar joint suggesting ligamentous injury. TIBIA FIBULA 2V Observed: 03/18/2018 Status: F Source: [facility] AP/LAT RIGHT 4:54 PM HEALTH SYSTEM REPOSITORY Performed at [facility] APPROVED BY: Dylan Herr MD EXAM TITLE: RIGHT TIBIA AND FIBULA AND RIGHT ANKLE DATE: 03/18/2018 16:21 COMPARISON: None. CLINICAL INDICATION/HISTORY: Fall, pain TECHNIQUE: AP and lateral views of the right tibia and AP and lateral views of the right ankle are presented. FINDINGS: There is a comminuted angulated fracture through the distal aspect of the fibula at and just above the level of the tibias fibular syndesmosis. There is a fracture through the lateral malleolus. The a nkle mortise is asymmetric with widening medially suggesting ligamentous disruption. No additional fractures are identified. Soft tissues are unremarkable. IMPRESSION: Comminuted angulated fracture through the distal aspect of the fibula. Moderately displaced fracture through the medial malleolus the ankle. There is widening of the tibiotalar joint suggesting ligamentous injury. ANKLE 3V AP/LAT/OBL Observed: 03/18/2018 Status: F Source: [facility] LEFT 4:54 PM HEALTH SYSTEM REPOSITORY Performed at [facility] APPROVED BY: Dylan Herr MD EXAM TITLE: LEFT ANKLE DATE: 03/18/2018 16:21 COMPARISON: None. CLINICAL INDICATION/HISTORY: Fall, ankle pain TECHNIQUE: AP, oblique and lateral views of the left ankle. FINDINGS: There is a subtle cortical step-off along the distal aspect of the fibula below the tibial fibular syndesmosis. Patient concern for fracture. No additional fractures are identified. The an kle mortise is symmetric. No lytic or blastic osseous lesions. There may be some mild soft tissue swelling over the lateral ankle. IMPRESSION: There is subtle cortical step off along the distal aspect of the fibula suspicious for minimally displaced fracture. Mild soft tissue swelling along the lateral aspect of the ankle. ED NOTE Observed: 03/18/2018 Status: COMPLETED Source: [place] 4:11 PM [facility] REPOSITORY HNO ID: [id number] Author: George (Rn) SUNSHINE Khan Service: Emergency Medicine Author Type: Registered Nurse Type: ED Notes Filed: 03/18/2018 4:13 PM Note Text: Pt states to have been cleaning deck when she stepped on pole for deck umbrella. Pt states she fell and got 'tangled up.' Pt denies hitting head, denies any LOC. Per EMS, right ankle was grossly deformed and without a pulse. Left ankle pain, no deformity. EMS medicated for pain and reduced dislocation x 1, then splinted in position with vacuum splint. On arrival, both ankles have good pulse and sensation. Swelling noted right ankle. Physician immediately at bedside for exaam. ED PROV NOTE Observed: 03/18/2018 Status: COMPLETED Source: [place] 4:05 PM [facility] REPOSITORY HNO ID: [id number] Author: Desiree Mtz MD Service: Emergency Medicine Author Type: Physician Type: ED Provider Notes Filed: 03/18/2018 7:45 PM Note Text: ED Provider Note Patient Name: Karli Krishnamurthy SERVICE DATE: 03/18/18 History Patient presents with: Ankle Injury Patient hurt both ankles today. She was carrying materials from her backyard. Her left foot stepped on a pole that was on the ground. This caused her foot slide. She then landed with all her weight on her right ankle. Both ankles hurt the right is much more. By history through paramedics she had a fracture dislocation of the right ankle at the scene. Her foot was pulseless so the ankle was relocated and pulse did come back. Patient denies hip or knee pain. She has no back or neck pain. This was a mechanical fall and not syncope. Medications and relocation makes the pain better. Motion makes it worse. PAST MEDICAL HISTORY Diagnosis Date - NEGATIVE MEDICAL HISTORY PAST SURGICAL HISTORY Procedure Laterality Date - PAST SURGICAL HISTORY OF 1996 - REMOVAL GALLBLADDER 1981 Cholecystectomy - REMOVAL OF TONSILS,<12 Y/O 1973 Tonsillectomy FAMILY HISTORY Problem Relation Age of Onset - Coronary Artery Disease Mother - Stroke Father - Lipids Father - Coronary Artery Disease Father - Diabetes Father Social History Social History Main Topics - Smoking status: Never Smoker - Smokeless tobacco: Never Used - Alcohol use No - Drug use: No - Sexual activity: Not on file ALLERGIES No Known Allergies Review of Systems Constitutional: Negative for fever. Respiratory: Negative for chest tightness and shortness of breath. Cardiovascular: Negative for chest pain and palpitations. Gastrointestinal: Negative for nausea and vomiting. Musculoskeletal: Positive for arthralgias, gait problem and joint swelling. Negative for back pain and neck pain. Skin: Negative for rash. Allergic/Immunologic: Negative for immunocompromised state. Neurological: Negative for headaches. Psychiatric/Behavioral: Negative for agitation. Physical Exam BP 114/61 Pulse 78 Temp (Src) 96 (Temporal Artery) Resp 12 Ht 5' 2 (1.58m) Wt 145 lb (65.8kg) SpO2 96% BMI 26.51 kg/(m2). Physical Exam Constitutional: She appears well-developed and well-nourished. No distress. HENT: Head: Normocephalic and atraumatic. Eyes: Pupils are equal, round, and reactive to light. EOM are normal. Neck: Normal range of motion. Neck supple. No tracheal deviation present. Cardiovascular: Normal rate and regular rhythm. Pulmonary/Chest: Effort normal and breath sounds normal. She exhibits no tenderness. Abdominal: Soft. Bowel sounds are normal. Musculoskeletal: She exhibits tenderness and deformity. Right ankle stool does appear to have some slight deformity with the foot is slightly more posterior than would be expected. Per discussion with EMS personnel this is a marked improvement over where was originally. I see no break or tear in the skin. She does have excellent dorsalis pedis pulse. She also has a little tenderness to the left ankle but that is isolated to the lateral malleolus. She has some slight soreness to the tib-fib area on the right leg but no deformity or swelling is noted. Sensation is intact in both side toes. Skin: Skin is warm and dry. Capillary refill takes less than 2 seconds. She is not diaphoretic. Psychiatric: She has a normal mood and affect. Diagnostic Testing ED Labs Ordered and Reviewed BASIC METABOLIC PANEL (AK,AV,EU,FV,HL,SINAI,MM,SP) - Abnormal; Notable for the following: Result Value Ref Range Sodium 132 (*) 136 - 145 mEq/L Glucose 238 (*) 70 - 99 mg/dL All other components within normal limits CBC + AUTO DIFF (AK,AV,EU,FV,HL,SINAI,MM,SP) - Abnormal; Notable for the following: MCH 31.6 (*) 27.0 - 31.0 pg All other components within normal limits MDRD GFR I discussed options with the patient. She would like to proceed with moderate sedation for splinting of her ankle. I note that on her ankle films her ankle was in better position than on the tib-fib films. The splint that was on with EMS was removed evidently. At this point I will get her in a posterior splint for temporary support. The patient last had anything to eat or drink early this morning and that was only a glass of water. She has a Malampati 1. She has no significant medical illness. There is extremely low fire risk. Patient will be kept on oxygen and monitored the entire process. Time out is done. All questions are answered by patient and . Procedures We discussed risks benefits and options. We chose to go with moderate sedation for the procedure and then relocation and splinting of her right bimalleolar ankle fracture dislocation. Time out was done. A total of 70 mg up to prevent was used. The knee was bent up and toes were held. This allowed the ankle go back into a more anatomic position. A wide posterior splint was placed with wrapping around both sides the ankle. This was Tuan wrapped in place. It was held in position until firm. Patient woke up approximately 8 minutes. She is AANDO ?3 and asymptomatic now. She did have a brief desaturation to about 88%. We move her oxygen up from 2-4 L and she immediately responded to this. She was moving good air the whole time. No airway manipulation was needed. She is in the room wide awake and talking with her at this time. ED Course / Clinical Impression Clinical Impressions as of Mar 18 1944 Closed fracture dislocation of right ankle, initial encounter History of conscious sedation Closed avulsion fracture of distal fibula, left, initial encounter Fall in home, initial encounter MDM / Disposition / Plan MDM X-rays do show fracture dislocation of her right ankle. This is reduced and then splinted with conscious/moderate sedation. Patient tolerated this well. She also has a small fracture of the left distal fibula. She has tenderness and some swelling in that area. An Aircast was placed on that initially. My concern is that this patient is not ambulatory because of this combination of fractures. I've got a call to orthopedics. I think this patient may need admission. She and her are not comfortable with her going home because she cannot bear weight at all. They do not have the facilities to allow her to function there. We called the transfer line. They recommended we talked to the emergency department directly because this is an orthopedic issue and most orthopedic evaluations go to the emergency department. I discussed the case with senior resident. The case was then discussed with Dr. Marc who accepted the patient in transfer. SIGNATURE: MD Desiree Brown MD 03/18/181944 HEMOGRAM/MANUAL DIFF Collected: 03/18/2018 Status: F Source: [place] 4:01 PM [facility] SYSTEM REPOSITORY TYPE CODE TESTS RESULT OUT OF REFERENCE UNITS RANGE LAB LWBC(LOINC 4.8-10.8 thou/cmm ) WBC 8.5 LAB LRBC(LOINC 4.20-5.40 mil/cmm ) RBC 4.53 LAB LHGB(LOINC 12.0-16.0 g/dL ) Hgb 14.3 LAB LHCT(LOINC 37.0-47.0 % ) Hct 42.3 LAB LMCV(LOINC 81.0-99.0 fl ) MCV 93.4 LAB LMCH(LOINC 27.0-31.0 pg ) MCH High 31.6 LAB LMCHC(LOIN 32.0-36.0 % C) MCHC 33.8 LAB LRDW(LOINC 11.5-15.9 % ) RDW 12.0 LAB LPLT(LOINC 150-400 thou/cmm ) Platelet 293 LAB LMPV(LOINC 7.1-10.5 fl ) MPV 10.3 LAB LDTYP(LOIN C) Diff Type Manual Diff LAB LSEGT(LOIN % C) Seg Neutrophil 64.0 LAB LLYMP(LOIN % C) Lymphocyte 29.0 LAB LMNO(LOINC % ) Monocyte 5.0 LAB HEATHER(LOINC % ) Eosinophil 2.0 LAB LBASO(LOIN % C) Basophil 0.0 LAB LSEGN(LOIN 3.00-5.67 thou/cmm C) Abs. Neut (ANC) 5.43 LAB LLYMN(LOIN 1.50-3.65 thou/cmm C) Abs. Lymph 2.47 LAB LMONN(LOIN 0.20-1.00 thou/cmm C) Abs. [place] 0.43 LAB LEOSN(LOIN 0.00-0.41 thou/cmm C) Abs. Eosin 0.17 LAB LBASN(LOIN 0.00-0.08 thou/cmm C) Abs. Baso 0.00 LAB LPLES(LOIN C) Platelet Estimate Normal LAB LRBCM(LOIN C) RBC Morphology Normal Performed By: #### LMCBD #### [place] [address] BASIC PANEL Collected: 03/18/2018 Status: F Source: [facility] 4:01 HEALTH SYSTEM REPOSITORY TYPE CODE TESTS RESULT OUT OF REFERENCE UNITS RANGE LAB CONSULTING PSYCHIATRIST(LOINC) 136-145 mEq/L Low Sodium Blood 132 LAB LK(LOINC) 3.5-5.1 mEq/L Potassium Blood 3.9 LAB LCL(LOINC) 98-107 mEq/L Chloride Blood 100 LAB LCO2(LOINC 21-32 mEq/L ) CO2 Blood 25 LAB LGLU(LOINC 70-99 mg/dL ) Glucose High Blood 238 LAB LBUN(LOINC 7-25 mg/dL ) BUN Blood 14 LAB LCREA(LOIN 0.51-0.95 mg/dL C) Creatinine Blood 0.69 LAB LCA(LOINC) 8.5-10.1 mg/dL Calcium Blood 9.2 LAB LANGP(LOIN 8-20 C) Anion Gap 11 LAB LBNCR(LOIN 10-20 C) BUN/Creatinine 20 Ratio Performed By: #### LP8 #### [facility] [address] [place] [address] MDRD EGFR Collected: 03/18/2018 Status: F Source: [facility] 4:01 PM HEALTH SYSTEM REPOSITORY TYPE CODE TESTS RESULT OUT OF RANGE REFERENCE UNITS LAB LGFRF(LOINC >60mL/min/1.73m ) 2 eGFR >60 Result Comment: If the patient is , multiply the result by 1.210. Performed By: #### LGFR #### [facility] [address] [place] [address] HOSP Observed: 03/18/2018 Status: COMPLETED Source: [place] 12:00 AM CLINIC OTHER CAMPUS REPOSITORY Patient:Karli Krishnamurthy MRN: <[id number]> Height:5' 2.008(1.575 m) Weight:145 lb (65.772 kg) Outpatient Medications as of 03/19/18: citalopram hydrobromide (CELEXA) 10 mg tablet Admission/Clinic Administered Medications as of 03/19/18: citalopram hydrobromide 10 mg tablet (CeleXA) morphine 2 mg injection ondansetron (PF) 4 mg injection (ZOFRAN) HYDROcodone 5 mg - acetaminophen 325 mg tablet (NORCO) lactated ringers infusion lidocaine 10 mg/mL (1 %) 200 mg injection (XYLOCAINE) Problem List: Closed displaced trimalleolar fracture of right ankle [S82.851A] Allergies: Codeine Date Verified: 03/19/18 Lab Values Lab Value Units Date High Low POTA* 3.8 mEq/L 03/19/2018 5.1 3.5 GABRIELA* 42.3 % 03/18/2018 47.0 37.0 Progress Notes (): Anne Villalobos RN, RN 03/18/2018 9:02 PM Signed Bed: 28-ED Expected date: Expected time: Means of arrival: Comments: Transfer- bilateral leg fx Cynthia Dobson DPM 03/19/2018 8:05 AM Addendum ORTHOPAEDIC SURGERY HANDP Pt: KARLI KRISHNAMURTHY Date of admssion: 03/18/2018 Admitting Physician: Dr. Lorne Magallanes, Orthopedic Surgery Chief Complaint: Bilateral ankle pain HPI: 62 year old female presenting today as a transfer from [place] ED after sustaining a fall earlier today. The patient states she was came to us from her backyard when her left foot slipped causing her to put all her weight on her right ankle. She noticed immediate bilateral ankle pain right worse than left. Paramedics stated she did not have a pulse at the scene and relocated her dislocated ankle. She was seen at [place] emergency department, where she was found to have bilateral ankle fractures and she was transferred to [facility] for further orthopedic care. She denies other areas of pain. She denies loss of consciousness. She denies numbness or tingling in her bilateral lower extremities. PAST MEDICAL HISTORY Diagnosis Date - NEGATIVE MEDICAL HISTORY PAST SURGICAL HISTORY Procedure Laterality Date - PAST SURGICAL HISTORY OF 1996 - REMOVAL GALLBLADDER 1981 Cholecystectomy - REMOVAL OF TONSILS,<10 Y/O 1973 Tonsillectomy Allergies: Codeine No current facility-administered medications for this encounter. Current Outpatient Prescriptions: citalopram hydrobromide (CELEXA) 10 mg tablet Take 10 mg by mouth once daily. FH: Non-contributory. Negative for any bleeding or clotting disorders. Social Hx: Denies tobacco, alcohol illicit drug abuse. Ambulates without assistance at baseline. Lives at home with her . ROS: 10 pt ROS neg except in HPI O: Vitals: BP 152/74 Pulse (!) 95 Temp 36.4 ?C (97.5 ?F) (Oral) Resp 16 Ht 157.5 cm (5' 2) Wt 65.8 kg (145 lb) SpO2 95% BMI 26.52 kg/m? Labs: Recent Labs 03/18/18 1601 NA 132* K 3.9 CHLOR 100 CO2 25 BUN 14 CREAT 0.69 GLUC 238* ANION 11 CA 9.2 WBC 8.5 HB 14.3 HCT 42.3 PLT 293 Physical exam: General: AANDO x 3; NAD. Cooperative throughout entire interview Head: Atraumatic Neck: supple Cards: RRR Lungs: Non-labored breathing Abdomen: S/nt/nd Neuro: Grossly intact Extremities: RLE: Obvious deformity to R ankle. No open wounds or lacerations. Diffuse TTP. SILT s/s/sp/dp/t. 2+ dp pulse. BCR in all toes. Able to wiggle toes. No TTP over knee or hip. LLE: Swelling and ecchymosis over L lateral ankle. No open wounds or lacerations. TTP over lateral ankle. No medial TTP. No TTP over knee or hip. SILT s/s/sp/dp/t. 2+ dp pulse. Wiggles toes. Imaging: Multiple views of Right ankle reviewed and demonstrate a posterior lateral ankle fracture dislocation with a comminuted Deleon C distal fibula fracture and a transverse avulsion fracture off the medial malleolus. X-rays of the left ankle demonstrates a small cortical avulsion over the medial distal fibula with no other obvious fractures. Procedure Note: The risks/limitations/benefits/alternatives were discussed with the patient. The patient agreed to continue. Timeout performed. Site identified. Landmarks marked. 12 cc 1% lidocaine without epinephrine injected into ankle joint via anteromedial approach. Reduction maneuver performed. Splint applied and molded. Patient tolerated procedure well. Post reduction xrays demonstrate improved alignment of the tibiotalar joint. A/P: 62 year old female with right ankle fracture dislocation, left distal fibula fracture - Admit 52b - Pain control - Maintain splint RLE - NWB RLE - Elevate/ice RLE - BMP in am to assess blood glucose - Plan for OR 03/20/18 vs 03/21/18 D/w Dr. Dobson, all in agreement Luis Ortiz MD 9:10 PM March 18, 2018 Attending Note I evaluated the patient and personally participated in the copeland components. I agree with the resident's findings and plan as documented and have discussed the case and management of the patient's care with the resident. Patient with recurrent dislocation following reduction. OR today for ORIF verse ex fix. I have educated the patient on the details of the procedures as well as medically reasonable risks, benefits, alternatives and prognosis. I also educated the patient on perioperative management including preoperative medical clearance, preoperative physical therapy consultation, postoperative care and rehabilitation, anticipated time to full weightbearing, return to shoes and maximum medical improvement, Lastly I educated that patient to their apparent understanding on potential complications including but not limited to infection,recurrence, over correction or under correction, painful hardware, persistent pain, swelling or disability, nerve injury or entrapment, bone and soft tissue healing complications, complications with anesthesia and deep venous thrombosis/ pulmonary embolism. Anticipate WB as tolerated to left ankle in pneumatic boot. PT post op for evaluation. May need placement given bilateral ankle fractures. Signature: Cynthia Dobson DPM Date: 03/19/2018 Time: 750AM Previous Version Chris Casas MD, MD 03/18/2018 10:43 PM Signed ED Provider Note Patient Name: Karli Krishnamurthy SERVICE DATE: 03/18/18 History Patient presents with: Fall: transfer from [place] for mechanical fall earlier today off porch around 5pm, -LOC, -hit head, -etoh, mini ankle fx, right ankle splinted, left ankle air cast This is a 62-year-old white female states that she was carrying something and stepped on an umbrella pole base inverting her left ankle and then she slid and injured her right ankle as well. She said her right ankle hurts worse than her left. She was seen at [place] and diagnosed with bilateral ankle fractures reportedly on scene had decreased pulse and deformity in the right ankle and reduced partially with regaining of pulse distally. She was transferred here for orthopedic evaluation. She denies any other injury such as head trauma, LOC, neck pain, back pain, abdominal pain. She did complain of right elbow pain earlier but she states that that is improved. No numbness or paresthesias. No previous ankle fractures or surgeries. PAST MEDICAL HISTORY Diagnosis Date - Anxiety disorder - NEGATIVE MEDICAL HISTORY PAST SURGICAL HISTORY Procedure Laterality Date - PAST SURGICAL HISTORY OF 1996 - REMOVAL GALLBLADDER 1981 Cholecystectomy - REMOVAL OF TONSILS,<12 Y/O 1973 Tonsillectomy FAMILY HISTORY Problem Relation Age of Onset - Coronary Artery Disease Mother - Stroke Father - Lipids Father - Coronary Artery Disease Father - Diabetes Father Social History Social History Main Topics - Smoking status: Never Smoker - Smokeless tobacco: Never Used - Alcohol use Yes Comment: socially - Drug use: No - Sexual activity: No ALLERGIES Allergen Reactions - Codeine Mental Status Change hallucinations Review of Systems All other systems reviewed and are negative. Physical Exam BP 152/74 Pulse 95 Temp (Src) 97.5 (Oral) Resp 16 Ht 5' 2 (1.58m) Wt 145 lb (65.8kg) SpO2 95% BMI 26.51 kg/(m2). Physical Exam Constitutional: She is oriented to person, place, and time. She appears well-developed and well-nourished. HENT: Head: Normocephalic and atraumatic. Right Ear: Tympanic membrane, external ear and ear canal normal. Left Ear: Tympanic membrane, external ear and ear canal normal. Mouth/Throat: Uvula is midline, oropharynx is clear and moist and mucous membranes are normal. Mucous membranes are not dry. Eyes: Pupils are equal, round, and reactive to light. Conjunctivae and EOM are normal. Right conjunctiva is not injected. Left conjunctiva is not injected. No scleral icterus. Neck: Full passive range of motion without pain. Neck supple. No JVD present. No spinous process tenderness and no muscular tenderness present. Normal range of motion present. Cardiovascular: Normal rate, regular rhythm, normal heart sounds and intact distal pulses. Exam reveals no gallop and no friction rub. No murmur heard. Pulmonary/Chest: Effort normal and breath sounds normal. No stridor. No respiratory distress. She has no wheezes. She has no rhonchi. She has no rales. She exhibits no tenderness, no deformity and no swelling. Abdominal: Soft. Bowel sounds are normal. She exhibits no distension. There is no tenderness. There is no CVA tenderness. Genitourinary: Genitourinary Comments: Pelvic bones stable and nontender Musculoskeletal: She exhibits no edema. Bilateral hips nontender knees nontender, distal fibula tender on the left ankle, no base of the fifth metatarsal tenderness, no Achilles tendon tenderness, Achilles is intact. Right ankle unstable with obvious deformity, DP and PT pulses are palpable capillary refill and sensation motor intact distally. Right knee is nontender. Right foot nontender. Lymphadenopathy: She has no cervical adenopathy. Neurological: She is alert and oriented to person, place, and time. No cranial nerve deficit. No focal deficits Skin: Skin is warm, dry and intact. Bruising noted. No rash noted. Bruising noted in the right ankle and the left lateral ankle Diagnostic Testing ED Labs Ordered and Reviewed - No data to display Procedures ED Course / Clinical Impression ED Course as of Mar 18 2242 Chris Casas's Documentation WedMar 18, [id number] Orthopedics at bedside already Clinical Impressions as of Mar 18 2242 Closed trimalleolar fracture of right ankle, initial encounter Closed avulsion fracture of distal end of left fibula, initial encounter MDM / Disposition / Plan This is a 62-year-old presenting with ankle fractures transferred from [facility]. I reviewed the x-rays, orthopedics was at bedside while I was in the room with my initial assessment as well. The left ankle x- rays appear to have a Deleon A distal fibula fracture and no clinical signs of instability or ligamentous disruption. The right ankle x-rays and tib-fib x-rays appear to have an unstable trimalleolar fracture. Orthopedics was consulted and stabilized the right ankle fracture and admitted. They requested a walking boot for the left ankle. The patient was ADMITTED TO: Regular nursing floor. Condition at time of disposition: stable SIGNATURE: MD Chris Pratt MD 03/18/18 2243 Previous Version Magy Harmon, RN, RN 03/18/2018 11:27 PM Signed Xray room called. Pt ready for xray. Niyah Salinas, RN, RN 03/19/2018 12:37 AM Signed Spoke to Dr. Ortiz (ortho #[id number]); pt ordered NPO for meat packer, no fluids ordered, pt states she has not voided since early afternoon and feels no urge, has not had anything to eat or drink since yesterday. Dr. Ortiz to enter low rate IVF. Luis Ortiz MD 03/19/2018 7:00 AM Signed ORTHOPAEDIC SURGERY DAILY PROGRESS NOTE Patient Name: Karli Krishnamurthy Date of Evaluation: 03/19/2018 Admission Date: 03/18/2018 Time of Evaluation: 6:58 AM ASSESSMENT: 62 year old female with R trimalleolar ankle fx/dx PLAN: -Pain Control -Maintain splint RLE -DVT Prophylaxis: To determine following surgery. SCDs LLE. -Ice/elevate extremity -NPO/IVF -OR today for ex fix vs ORIF INTERVAL HPI: Patient monitored, no new events overnight. Pain in R leg. Denies nausea/vomitting. OBJECTIVE: BP 110/60 Pulse 78 Temp 36.3 ?C (97.3 ?F) (Temporal Artery) Resp 18 Ht 157.5 cm (5' 2.01) Wt 65.8 kg (145 lb) SpO2 96% BMI 26.51 kg/m? Intake/Output Summary (Last 24 hours) No intake/output data recorded. Exam: General: NAD, AAOx3 Extremities: Splint c/d/i. SILT over toes. BCR in all toes. Wiggles toes. Labs: BMP: Sodium 137 03/19/2018 Potassium 3.8 03/19/2018 Chloride 106 03/19/2018 CO2 27 03/19/2018 BUN 14 03/19/2018 Creatinine 0.61 03/19/2018 Glucose 159 03/19/2018 CBC: WBC 8.5 03/18/2018 HGB 14.3 03/18/2018 Hematocrit 42.3 03/18/2018 Platelet Count 293 03/18/2018 COAGS: No results found for this basename: aptt,inr SED RATE/CRP: No results found for this basename: wsr:*,crp:* Imaging: XR R ankle demonstrates a dislocated R trimalleolar equivalent ankle fracture Luis Ortiz MD Resident, Orthopaedic Surgery Pager: [phone] 03/19/2018 6:58 AM ALLERGIES ALLERGIES DATE TYPE / CODE NAME / CODE REACTION SEVERITY SOURCE 03/18/2018 DRUG CODEINE [facility] INGREDI/[address] [place] 843522(SNOM Repository ED CT) 06/23/2015 Drug No Known Unknown [facility] Allergy/416 Allergies/[id number] [facility] 886027(SNOM 0388(RXNORM) Repository ED CT) NG/[id number] CODEINE [facility] 6([employer] CT) Repository Drug NO KNOWN [facility] Class/15380 ALLERGIES Other [place] 1003(SNOMED Repository CT) ENCOUNTERS ENCOUNTERS ADMIT/DISCHARGE ACCOUNT NUMBER ADMITTING ENCOUNTER LOCATION SOURCE CLASS 06/16/2018 [id number] [facility] ding:PT Repository 06/03/2018/06/03/19 [id number] Ambulatory [address] Other [place] Repository 06/03/2018/06/03/19 [id number] Ambulatory [address] MEDICAL Repository CENTERBuildi ng:AGPOB1 05/09/2018 [id number] [facility] ding:MFPLAB Repository 05/06/2018/05/06/20 [id number] Ambulatory [address] Other [place] Repository 05/06/2018/05/06/20 [id number] Ambulatory [address] MEDICAL Repository CENTERBuildi ng:AGPOB1 04/08/2018/04/08/20 [id number] Ambulatory [address] Other [place] Repository 04/08/2018/04/08/20 [id number] Ambulatory [address] MEDICAL Repository GARDENABuildi ng:AGPOB1 04/04/2018 [id number] Ambulatory [facility] MEDICAL Repository GARDENABuildi ng:AGMF1 03/28/2018/03/28/20 [id number] Ambulatory [address] Repository 03/28/2018/03/28/20 [id number] Ambulatory [address] MEDICAL Repository CENTERBuildi ng:AGMF1 03/22/2018/04/03/20 [id number] [facility], Ambulatory [address] Repository 03/18/2018/03/22/20 [id number] [facility], Inpatient [address] Repository 03/18/2018/03/22/20 [id number] [facility], Inpatient [address] MEDICAL Repository GARDENABuildi nBRoom: [id number]: 01 03/18/2018/03/18/20 [id number] Emergency [address] Repository PAYERS PAYERS ENCOUNTER GUARANTOR PAYER SUBSCRIBER SOURCE 06/16/2018 KARLI GRIFFITH Primary DYLAN LUCIUS: [place] DEPOT [place], Insurance:MEDICAL [id number] [address]Vuz: [facility] Number: Repository () [id number] Date:[id number] [address]VM: 06/16/2018 Secondary NOT GIVENUNK [place] Insurance:SELF PAY [facility] Number: Effective Repository Date:2018-05-18 06/03/2018 KARLI KAN: Primary Insurance:Rissa KAN: [id number] Number[facility] Repository [place] [address]Cnt: [id number] Date: (HP) 05/09/2018 Karli Griffith Primary DYLAN PINEDOB: [place] [facility], Insurance:MEDICAL [id number] [facility] [address]Bgr: [facility] Number: Repository () [id number] Date:[id number], [place] [address]VS: 05/09/2018 Secondary NOT GIVENUNK [place] Insurance:SELF PAY [facility] Number: Effective Repository Date:2018-05-09 05/06/2018 KARLI CAMACHOB: Primary Insurance:MMO DYLAN PINEDOB: [facility] SUPER[employer] PLUSPolicy [id number] [facility], Number: Repository [place] [address]Jkq: [id number] Date: (HP) 04/08/2018 KARLI KRISHNAMURTHYB: Primary Insurance:MMO DYLAN PINEDOB: [facility] SUPERMED PLUSPolicy [id number] [facility], Number: Repository [place] [address]Ewo: [id number] Date: (HP) 04/04/2018 KARLI KRISHNAMURTHYDOB: Primary Insurance:MMO DYLAN PINEDOB: [facility] SUPERMED PLUSPolicy [id number] [facility], Number: Repository [place] [address]Wxc: [id number] Date: (HP) 03/28/2018 KARLI Morejon KEIRYDOB: Primary Insurance:MMO DYLAN PINEDOB: [facility] SUPERMED PLUSPolicy [id number] [facility] Number[facility] Repository [place], [place] [id number] [id number]: (330) Date: [phone] (HP) 03/18/2018 KARLI A DOUGB: Primary Insurance:MMO DYLAN PINEDOB: [facility] [id number] Number: Repository [place], [place] [id number] [id number]: [phone] Date: ()
== END ==
PROVIDERS: Family Provider Family Medicine; PCP Family Medicine; Visit Provider Family Medicine
DX: E11.9 Type 2 diabetes mellitus without complications (principal)
CPT/HCPCS: 36415; 80048; 80061; 80076; 82043; 82570; 83036

== ENCOUNTER 2018-06-24 14:00 | Outpatient (RCR) | payer OTHER, SELFPAY ==
--- NOTE | 2018-05-27 09:48 | HP.PTEVAL_ITS ---
Patient's Visit Information KARLI RICCI is a 62 year old F referred to Physical Therapy by CYNTHIA DOBSON with a diagnosis of CLOSED FRACTURE OF RIGHT AND LEFT ANKLE WITH ROUTINE HEALING. Date of Evaluation: 05/26/18 Physical Therapist: Norm Murrieta, PT, Cert MDT, OCS - Visit Plan Frequency: 2x /Week Duration: 3 Months Plan: Intially PWB ON RIGHT THEN NEXT WEEK WBAT WITH CAM BOOT AND WBAT WITH LACE UP ANKLE BRACE RIGHT. INTIALLY START NWB EX'S ROM AND THERABAND STRENGTGENING BILATERAL ANKLE,FLEXABLITY,PROGRESS WITH GAIT TRAINING/BALANCE JENA ,PROGRESS TO WB EX' PER MD. QUAD/HIP/HAMS STRENGTHENING - Subjective Findings: This 63 y/o female presents to physical therapy with closed fracture of right and left ankle. Patient fracture tripped on deck at home twisted left ankle closed fracture and fell on right ankle causing closed fracture with dislocation on Mar 18. Patient went to ER at [facility] ,thus tranferred to [facility] which did ORIF right ankle on Mar 19 . Patient in hospital for 4 days then went to Rehab for 2weeks at [facility]. When patient seen DR phillips in brace left ankle with WBAT LEFT on the ,and with boot right PWB 1 week then 2weeks on 05/27 at transition to WBAT with CAM boot.Paln to return to Jun 06. Patient conts to have parathesia.tingling and edema.Patient had x-rays looked good .Patient has walk in shower,and spouse assist with ADL'S. Patient scoot up buttuck with stairs. Patient has 2 story home 2 steps and 14 steps 2nd floor.Patient uses w/c currently for moblity. Patient has fww. Patient current condition impairs QOL and ADLS'. SOCAIL: . VOCATION: retired - Pain Right Ankle Pain Intensity (Out of 10): 2 Pain Intensity Range: 10 Left Ankle Pain Intensity (Out of 10): 1 Pain Intensity Range: 10 - Objective POSTURE: pes cavus. MOBLITY: w/c level. NEURO: c/o parathesia/tingling right foot ,diminished light touch,. EDEMA: trimalleor joint line 23.5 cm,left 22.1cm. AROM:R- dorsiflexion 20 degrees from 0,L 10 degrees R -plantarflexion 50,L 60 degrees ,inverson R -10 degrees,right 0 degrees. MMT: left ankle DF 4- /5, PF 2+/5,IN/EV 4-/5,right ankle DF 3+/5,PF 2+/'5,,IN/EV NT. TRANSFERS: mod Independant. - HOMMANS - Goals Goal 1:: Independant with HEP Goal Time Frame: 12-16 Weeks Goal 2:: Ambulate with improve quality of gait with heelstike and toe off during gait cycle community distances. Goal Time Frame: 12-16 Weeks Goal 3:: Patient to improve dynamic balance to goood Goal Time Frame: 12-16 Weeks Goal 4:: Patient to improve ankle ROM as jena by 5-10 degrees to improve function. Goal Time Frame: 12-16 Weeks Goal 5:: Patient to improve strength bilateral ankle 4/5 to improve gait. Goal Time Frame: 12-16 Weeks Goal 6:: Patient to improve LFES score by 15-20 points or greater to improve QOL. Goal Time Frame: 12-16 Weeks - Rehabilitation Potential Physical Therapy Diagnosis: This patient has bilateral ankle fracture with disloaction on right with ORIF with inablity to walk,poor balance,weakness,decrease strength bilateral ankle impairs function and ADL'S thus benifit from skilled PT Rehabilitation Potential: Good - Anticipated Interventions Patient/Client Instruction: Educate patient on: Condition, Plan of Care For the Purpose of:: To decrease pain, To increase ROM, To improve muscle performance and motor function, To improve ability to perform ADL's, To increase tolerance to activity/condition/position, To improve ability of physical actions for home/community/work/leisure, To improve gait and locomotor functions, To improve health of tissue, To decrease soft tissue restriction, To increase flexibility/ROM, To improve endurance, To improve balance, To improve safety with gait, To improve ability to perform tasks related to life management Therapeutic Exercise to Include: Strength training, Balance training, Flexibilty training, Gait and locomotor training, Passive ROM, Active ROM Comment: ANKLE PROGRESS TO WB EX PER MD For the Purpose of:: To decrease pain, To decrease swelling/inflammation, To increase ROM, To improve muscle performance and motor function, To improve ability to perform ADL's, To increase tolerance to activity/condition/position, To improve ability of physical actions for home/community/work/leisure, To improve gait and locomotor functions, To improve health of tissue, To decrease soft tissue restriction, To increase flexibility/ROM, To improve balance, To improve safety with gait, To improve ability to perform tasks related to life management Manual Therapy Techniques to Include: Mobilization Comment: METATARSELS,SUBTALAR For the Purpose of:: To decrease pain, To increase ROM, To improve health of tissue, To decrease soft tissue restriction, To increase flexibility/ROM TENS: Yes IF ES: Yes Cryotherapy (ice pack, ice massage): Yes Thermo therapy (hot pack): Yes Vasopneumatic device: Yes For the Purpose of:: To decrease pain, To increase ROM, To improve nutrient delivery to tissue, To increase oxygenation perfusion, To improve health of tissue, To decrease soft tissue restriction, To increase flexibility/ROM Thank you for the opportunity to evaluate your patient. For Medicare and Medicare HMO plans, please review the plan of care and approve it. It will need to be FAXED BACK to us at [phone] for Medicare purposes. For Medicare only, by signing this I certify the plan of care. Please let me know if there are questions or concerns regarding this plan of care. Physician Signature: Date:
--- NOTE | 2018-09-07 10:23 | HP.PT.NRP ---
HP - Discharge Summary (1) - Patient Information KARLI RICCI was seen in my office for initial evaluation on 05/26/18. The following Plan of Care was established for this patient: Initial Frequency: 2x /Week Initial Duration: 3 Months - Anticipated Interventions Patient/Client Instruction: Educate patient on: Condition, Plan of Care For the Purpose of:: To decrease pain, To increase ROM, To improve muscle performance and motor function, To improve ability to perform ADL's, To increase tolerance to activity/condition/position, To improve ability of physical actions for home/community/work/leisure, To improve gait and locomotor functions, To improve health of tissue, To decrease soft tissue restriction, To increase flexibility/ROM, To improve endurance, To improve balance, To improve safety with gait, To improve ability to perform tasks related to life management Therapeutic Exercise to Include: Strength training, Balance training, Flexibilty training, Gait and locomotor training, Passive ROM, Active ROM For the Purpose of:: To decrease pain, To decrease swelling/inflammation, To increase ROM, To improve muscle performance and motor function, To improve ability to perform ADL's, To increase tolerance to activity/condition/position, To improve ability of physical actions for home/community/work/leisure, To improve gait and locomotor functions, To improve health of tissue, To decrease soft tissue restriction, To increase flexibility/ROM, To improve balance, To improve safety with gait, To improve ability to perform tasks related to life management Manual Therapy Techniques to Include: Mobilization Comment: METATARSELS,SUBTALAR For the Purpose of:: To decrease pain, To increase ROM, To improve health of tissue, To decrease soft tissue restriction, To increase flexibility/ROM TENS: Yes IF ES: Yes Cryotherapy (ice pack, ice massage): Yes Thermo therapy (hot pack): Yes Vasopneumatic device: Yes For the Purpose of:: To decrease pain, To increase ROM, To improve nutrient delivery to tissue, To increase oxygenation perfusion, To improve health of tissue, To decrease soft tissue restriction, To increase flexibility/ROM This patient was last seen in our office 06/24/18. Pertinent comments regarding their Physical therapy will appear below: Patient seen for PT for closed ankle fracture. Patient progressing well ,but when removed boot,then transition shoe. Patient had incidant at home climbing on step stool with brace slipped landed ackwardly caused pain had to RTD ,thus had to stop PT per MD. At this point I will be discontinuing this patient from physical therapy. I would be happy to see this patient again in the future if found appropriate by the physician. Thank you! Norm Murrieta, PT, Cert MDT, OCS
== END 2018-06-24 19:00 | disposition home or self-care (01) ==
LOC: PT 14:00
PROVIDERS: Family Provider Family Medicine; PCP Family Medicine
DX: S82.851D Displaced trimalleolar fracture of right lower leg, subsequent encounter for closed fracture with routine healing (principal); S82.892D Other fracture of left lower leg, subsequent encounter for closed fracture with routine healing
CPT/HCPCS: 97110; 97116; 97161

== ENCOUNTER → 2018-09-16 | Outpatient (CLI) | payer OTHER, SELFPAY ==
[2015-06-23 14:26] VITALS: BMI 31.4
[2018-09-16 14:29] LABS: Anion Gap 7 (5-15); BUN 9 mg/dL (7-18); BUN/Creat Ratio 12.3 RATIO (10-20); Calcium,Total 9.6 mg/dL (8.5-10.1); Chloride 104 mmol/L (98-107); Cholesterol 105 mg/dL (200); Creatinine, Serum 0.73 mg/dL (0.55-1.02); EST Glomerular Filtration Rate 85 mL/min (>60); Est Glom Filt Rate - Afr Amer 102 mL/min (>60); Glucose 117 mg/dL (74-106); High Density Lipoprotein 38 mg/dL; Potassium 4.1 mmol/L (3.5-5.1); Sodium Level 140 mmol/L (136-145); Triglycerides 132 mg/dL; Very Low Density Lipoprotein 26 mg/dL (5-40)
== END | disposition home or self-care (01) ==
LOC: MTLAB 11:52
PROVIDERS: Family Provider Family Medicine; PCP Family Medicine; Referring Provider Family Medicine; Visit Provider Family Medicine
DX: E11.9 Type 2 diabetes mellitus without complications (principal)
CPT/HCPCS: 36415; 80048; 80061

== ENCOUNTER → 2019-03-09 16:04 | Outpatient (CLI) | payer OTHER, SELFPAY ==
[2015-06-23 14:26] VITALS: BMI 31.4
[2019-03-09 18:12] LABS: Anion Gap 6 (5-15); BUN 12 mg/dL (7-18); BUN/Creat Ratio 16.7 RATIO (10-20); Chloride 105 mmol/L (98-107); Creatinine, Serum 0.72 mg/dL (0.55-1.02); EST Glomerular Filtration Rate 87 mL/min (>60); Est Glom Filt Rate - Afr Amer 105 mL/min (>60); Glucose 62 mg/dL (74-106); Potassium 4.1 mmol/L (3.5-5.1); Sodium Level 137 mmol/L (136-145)
== END ==
PROVIDERS: Family Provider Family Medicine; PCP Family Medicine; Referring Provider Family Medicine; Visit Provider Family Medicine
DX: E11.9 Type 2 diabetes mellitus without complications (principal)
CPT/HCPCS: 36415; 80048

== ENCOUNTER → 2019-11-20 15:19 | Outpatient (CLI) | payer OTHER, SELFPAY ==
[2015-06-23 14:26] VITALS: BMI 31.4
[2019-11-20 18:19] LABS: Vitamin D,25 Hydroxy 29.5 ng/mL
[2019-11-20 18:40] LABS: Anion Gap 8 (5-15); BUN 14 mg/dL (7-18); Calcium,Total 10.1 mg/dL (8.5-10.1); Chloride 101 mmol/L (98-107); Cholesterol 112 mg/dL (200); Creatinine, Serum 0.82 mg/dL (0.55-1.02); EST Glomerular Filtration Rate 74 mL/min (>60); Est Glom Filt Rate - Afr Amer 89 mL/min (>60); Glucose 164 mg/dL (74-106); High Density Lipoprotein 43 mg/dL; Potassium 3.8 mmol/L (3.5-5.1); Sodium Level 137 mmol/L (136-145); Triglycerides 119 mg/dL; Very Low Density Lipoprotein 24 mg/dL (5-40)
[2019-11-20 18:43] LABS: Hemoglobin A1c 5.9 % (3.8-5.6)
== END ==
PROVIDERS: PCP Family Medicine; Visit Provider Family Medicine
DX: Z00.00 Encounter for general adult medical examination without abnormal findings (principal); E11.9 Type 2 diabetes mellitus without complications
CPT/HCPCS: 36415; 80048; 80061; 82306; 83036

== ENCOUNTER → 2020-06-05 10:36 | Outpatient (CLI) | payer OTHER, SELFPAY ==
[2015-06-23 14:26] VITALS: BMI 31.4
[2020-06-05 12:50] LABS: Anion Gap 9 (5-15); BUN 14 mg/dL (7-18); BUN/Creat Ratio 15.9 RATIO (10-20); Calcium,Total 9.4 mg/dL (8.5-10.1); Chloride 105 mmol/L (98-107); Creatinine, Serum 0.88 mg/dL (0.55-1.02); EST Glomerular Filtration Rate 68 mL/min (>60); Est Glom Filt Rate - Afr Amer 82 mL/min (>60); Glucose 129 mg/dL (74-106); Sodium Level 136 mmol/L (136-145)
== END ==
PROVIDERS: PCP Family Medicine; Referring Provider Family Medicine; Visit Provider Family Medicine
DX: E11.9 Type 2 diabetes mellitus without complications (principal)
CPT/HCPCS: 36415; 80048

== ENCOUNTER → 2020-06-06 17:00 | Outpatient (CLI) | payer OTHER, SELFPAY ==
--- NOTE | 2020-06-06 17:00 | BI_ITS ---
MAMMOGRAPHY - BILATERAL SCREENING REASON FOR EXAM: Female, 64 years old. Routine annual screening examination. PERTINENT HISTORY: Non-contributory. TECHNIQUE: Digital bilateral breast carolyn (3D mammographic acquisition) in the CC and MLO projections. 2-D mediolateral oblique (MLO) and craniocaudad (CC) views of both breasts were obtained. CAD: Full Field Digital Mammography with Computer Added Detection was performed. COMPARISON: Comparison is made with prior outside examination dated 11/25/2007. FINDINGS: Breast Composition: There are scattered areas of fibroglandular density. There are no dominant masses or suspicious calcifications. No other significant abnormalities are identified. There has been no significant change since the prior study. BI/SCREEN MAMM (CAD) W/CAROLYN BILAT IMPRESSION: Stable bilateral screening mammogram. Yearly follow-up mammogram recommended. (A) ASSESSMENT CATEGORY: BIRADS Category 1: Negative. A letter regarding these results will be sent to the patient by the facility within 30 days. Approximately 10% of breast cancers are not detected by mammography. A normal mammogram should not delay biopsy of a clinically suspicious abnormality. [id number] Electronically Signed: Octavio Omer, at 8:45 EST , Service support ,
== END ==
PROVIDERS: PCP Family Medicine; Referring Provider Family Medicine; Visit Provider Family Medicine
DX: Z12.31 Encounter for screening mammogram for malignant neoplasm of breast (principal)
CPT/HCPCS: 77063; 77067

== ENCOUNTER → 2020-12-04 11:07 | Outpatient (CLI) | payer OTHER, SELFPAY ==
[2015-06-23 14:26] VITALS: BMI 31.4
[2020-12-04 12:41] LABS: Anion Gap 6 (5-15); BUN 13 mg/dL (7-18); BUN/Creat Ratio 16.9 RATIO (10-20); Calcium,Total 9.3 mg/dL (8.5-10.1); Chloride 104 mmol/L (98-107); Cholesterol 105 mg/dL (200); Creatinine, Serum 0.77 mg/dL (0.55-1.02); EST Glomerular Filtration Rate 79 mL/min (>60); Est Glom Filt Rate - Afr Amer 96 mL/min (>60); Glucose 114 mg/dL (74-106); High Density Lipoprotein 39 mg/dL; Sodium Level 138 mmol/L (136-145); Triglycerides 120 mg/dL; Very Low Density Lipoprotein 24 mg/dL (5-40)
[2020-12-04 18:03] LABS: Microalbumin,Random Urine 28.8 mg/L (NO RANGE EST.); Microalbumin:Creatinine Ratio 11.7 mg/g CRE (<30 mg/g CRE)
== END ==
PROVIDERS: PCP Family Medicine; Visit Provider Family Medicine
DX: E11.9 Type 2 diabetes mellitus without complications (principal)
CPT/HCPCS: 36415; 80048; 80061; 82043; 82570

== ENCOUNTER → 2022-02-05 | Outpatient (CLI) | payer OTHER, SELFPAY ==
[2022-02-05 15:18] LABS: Anion Gap 7 (5-15); BUN 12 mg/dL (7-18); BUN/Creat Ratio 15.8 RATIO (10-20); Calcium,Total 9.5 mg/dL (8.5-10.1); Chloride 104 mmol/L (98-107); Cholesterol 131 mg/dL (200); Creatinine, Serum 0.76 mg/dL (0.55-1.02); EST Glomerular Filtration Rate 81 mL/min (>60); Est Glom Filt Rate - Afr Amer 98 mL/min (>60); Glucose 118 mg/dL (74-106); High Density Lipoprotein 51 mg/dL; Sodium Level 139 mmol/L (136-145); Triglycerides 100 mg/dL; Very Low Density Lipoprotein 20 mg/dL (5-40)
[2022-02-05 15:25] LABS: Microalbumin,Random Urine 26.8 mg/L (NO RANGE EST.); Microalbumin:Creatinine Ratio 18.9 mg/g CRE (<30 mg/g CRE)
== END | disposition home or self-care (01) ==
LOC: MFPLAB 11:41
PROVIDERS: PCP Family Medicine; Referring Provider Family Medicine; Visit Provider Family Medicine
DX: E11.9 Type 2 diabetes mellitus without complications (principal)
CPT/HCPCS: 36415; 80048; 80061; 82043; 82570

== ENCOUNTER → 2022-08-12 | Outpatient (CLI) | payer OTHER, SELFPAY ==
[2022-08-12 12:45] LABS: Anion Gap 7 (5-15); BUN 11 mg/dL (7-18); BUN/Creat Ratio 13.4 RATIO (10-20); Calcium,Total 9.7 mg/dL (8.5-10.1); Chloride 106 mmol/L (98-107); Cholesterol 122 mg/dL (200); Creatinine, Serum 0.82 mg/dL (0.55-1.02); EST Glomerular Filtration Rate 73 mL/min (>60); Est Glom Filt Rate - Afr Amer 89 mL/min (>60); Glucose 118 mg/dL (74-106); High Density Lipoprotein 47 mg/dL; Potassium 3.8 mmol/L (3.5-5.1); Sodium Level 140 mmol/L (136-145); Triglycerides 106 mg/dL; Very Low Density Lipoprotein 21 mg/dL (5-40)
== END | disposition home or self-care (01) ==
LOC: MFPLAB 10:29
PROVIDERS: PCP Family Medicine; Referring Provider Family Medicine; Visit Provider Family Medicine
DX: E11.9 Type 2 diabetes mellitus without complications (principal)
CPT/HCPCS: 36415; 80048; 80061

== ENCOUNTER → 2023-06-25 | Outpatient (CLI) | payer MEDICARE, SELFPAY ==
--- OUTSIDE RECORDS SUMMARY | 2023-06-25 14:14 | XMS RPT_ITS | CCD ---
Author Name Unknown Address [address] [place] [address] Organization [facility] Care Team Providers Care Automotive Parts Advisor Name Role Phone DESIREE MTZ Attending Unavaila ble CYNTHIA DOBSON Admitting Unavailable KICYNTHIA AKHTAR Attending Unavailable KISHMANCYNTHIA Attending Unavailable KISHMANCYNTHIA Attending Unavailable KISHMANCYNTHIA Referring Unavailable KISHCYNTHIA MELCHOR Attending Unavailable KISHCYNTHIA MELCHOR Attending Unavailable KISHCYNTHIA MELCHOR Attending Unavailable KISHCYNTHIA MELCHOR Attending Unavailable CLAUDIA, JOHNNA Primary Care Unavailable CYNTHIA DOBSON Admitting Unavailable KICYNTHIA AKHTAR Attending Unavailable IMCA Consulting Unavailable CYNTHIA DOBSON Attending Unavailable IMCA Referring Unavailable CLAUDIA, JOHNNA Primary Care Unavailable KICYNTHIA AKHTAR Attending Unavailable KISHCYNTHIA MELCHOR Referring Unavailable CLAUDIA, JOHNNA Primary Care Unavailable KISHCYTNHIA MELCHOR Attending Unavailable KISHCYNTHIA MELCHOR Referring Unavailable CLAUDIA, JOHNNA Primary Care Unavailable KICYNTHIA AKHTAR Attending Unavailable IMCA Referring Unavailable CLAUDIA, JOHNNA Primary Care Unavailable KICYNTHIA AKHTAR Attending Unavailable IMCA Referring Unavailable CLAUDIA, JOHNNA Primary Care Unavailable KISHCYNTHIA MELCHOR Attending Unavailable IMCA Referring Unavailable CLAUDIA, JOHNNA Primary Care Unavailable KICYNTHIA AKHTAR Attending Unavailable IMCA Referring Unavailable CLAUDIA, JOHNNA Primary Care Unavailable KICYNTHIA AKHTAR Attending Unavailable IMCA Referring Unavailable CLAUDIA, JOHNNA Primary Care Unavailable KICYNTHIA AKHTAR Attending Unavailable IMCA Referring Unavailable CLAUDIA, JOHNNA Primary Care Unavailable Allergies Allergy Classification Reported Allergen(s) Allergy Type Date of Onset Reaction(s) Facility (2 sources) Codeine; Translations: [CODEINE] Drug Allergy 03-18-2018 [facility] Other [place] Repository Problems Active Problems Problem Classification Problem Date Documented Date Episodic/Chronic External cause codes: Fall (1 source) Unspecified fall, initial encounter; Translations: [Unspecified fall, initial encounter] Onset: 03-18-2018 External cause codes: Place of occurrence (1 source) Unspecified place in unspecified non-institutional (private) residence as the place of occurrence of the external cause; Translations: [Unspecified place in unspecified non-institutional (private) residence as the place of occurrence of the external cause] Onset: 03-18-2018 Residual codes; unclassified (1 source) Other specified postprocedural states; Translations: [Other specified postprocedural states] Onset: 03-18-2018 Unclassified (2 sources) Displaced trimalleolar fracture of right lower leg, subsequent encounter for closed fracture with routine healing Onset: 03-19-2018 Past or Other Problems Problem Classification Problem Date Documented Da te Episodic/Chronic Fracture of lower limb (4 sources) Displaced trimalleolar fracture of right lower leg, subsequent encounter for closed fracture with routine healing; Translations: [Other fracture of right lower leg, subsequent encounter for closed fracture with routine healing] Onset: 03-18-2018 Episodic Fracture of lower limb (2 sources) Other fracture of left lower leg, subsequent encounter for closed fracture with routine healing; Translations: [Other fracture of upper and lower end of left fibula, initial encounter for closed fracture] Onset: 03-18-2018 Episodic Results Test Name Value Interpretation Reference Range Facil ity Encounters Encounter Date Encounter Type Care Provider Facility Start: 08-19-2018 Patient encounter procedure CYNTHIA Chiang DENNYRUIZ Facility:[facility] Start: 07-18-2018 End: 07-18-2018 [facility]: 07-15-2018 Patient encounter procedure CYNTHIA Chiang TIFFANYGIOVANA Facility:[facility] Start: 07-01-2018 End: 07-01-2018 Patient encounter procedure [facility]NTHIA [facility] Start: 06-03-2018 End: 06-03-2018 [facility] Start: 05-06-2018 End: 05-06-2018 Patient encounter procedure CYNTHIA [facility] Start: 04-08-2018 End: 04-08-2018 Patient encounter procedure CYNTHIA [facility] Start: 04-04-2018 Patient encounter procedure CYNTHIA DOBSON Facility:[facility] Start: 03-28-2018 End: 03-28-2018 Patient encounter procedure CYNTHIA DOBSON [facility] Start: 03-18-2018 End: 03-22-2018 Evaluation and management of inpatient CYNTHIA DOBSON [facility] Start: 03-18-2018 End: 03-18-2018 [facility] Procedures Date Procedure Procedure Detail Performing Clinician Start: 07-18-2018 Follow-up visit Follow Up DESIREE Mariia ROMERO Start: 03-19-2018 Antibody screen JOHNNA CRUMP Payers Date Payer Category Payer Unknown [id number] 2.16.8 [id number] 1955 Unknown [id number] 2.16.8 [id number] 1953 Unknown [id number] 2.16.8 [id number] 1953 Unknown [id number] 2.16.8 [id number] 1953 Unknown [id number] 2.16.8 [id number] 1953 Unknown [id number] 2.16.8 [id number] 1953 Unknown [id number] 2.16.8 [id number] 1953 Unknown [id number] 2.16.8 [id number] 1953 Unknown [id number] 2.16.8 [id number] 1953 Unknown [id number] 2.16.8 [id number] Unknown [id number] Summary Purpose Family History No Family History Records FoundNo Family History Records Found Advance Directives No Advanced Directives Records FoundNo Advanced Directives Records Found Hospital Course Note HNO ID: [id number] Author: Mariia Dobson Service: Orthopaedic Surgery Author Type: Physician [...] fracture Discharge Diagnosis: Same as admitting Operations Duri (more content not included)... Note HNO ID: [id number] Author: Tyler Garcia Service: Orthopaedic Surgery Author Type: Resident Type: Brief Op Note Filed: 03/19/2018 11:24 AM Note Text: BRIEF OPERATIVE / PROCEDURE NOTE LOG ID: [id number] SURGERY/PROCEDURE DATE: 03/19/2018 INCISION/PROCEDURE START TIME: 8:37 AM INCISION CLOSE/PROCEDURE END TIME: 11:12 AM SURGEON(S)/PROCEDURALIST(S) AND MILL MACHINIST(S): Surgeon(s) and Role: * Cynthia Dobson - Primary * Alhaji (Koffi Garcia - Resident - Assisting * William [...] right ankle [S82.851A] POST OP PLAN: -Pain (more content not included)... Procedure Findings Note HNO ID: [id number] Author: Tyler pa (Res) Radha Service: Orthopaedic Surgery Author Type: Resident Type: Brief Op Note Filed: 03/19/2018 11:24 AM Note Text: BRIEF OPERATIVE / PROCEDURE NOTE LOG ID: [id number] SURGERY/PROCEDURE DATE: 03/19/2018 INCISION/PROCEDURE START TIME: 8:37 AM INCISION CLOSE/PROCEDURE END TIME: 11:12 AM SURGEON(S)/PROCEDURALIST(S) AND MILL MACHINIST(S): Surgeon(s) and Role: * Cynthia Dobson - Primary * Alhaji (Res) Radha - Resident - Assisting * William (Res) Ian - Resident - Assisting No Additional Staff [...] right ankle [S82.851A] POST OP PLAN: -Pain (more content not included)... Additional Source Comments INFORMATION SOURCE (unrecogn ized section and content) DATE CREATED AUTHOR AUTHOR'S BOSTON MIRANDA 08/19/2018 [facility] FOR RECORDS PERTAINING TO PATIENTS WHO ARE OR HAVE BEEN ENROLLED IN A CHEMICAL DEPENDENCY/SUBSTANCEABUSE PROGRAM, SOME INFORMATION MAY BE OMITTED. This clinical summary was aggregated from multiple sources. Caution should be exercised in using it in the provision of clinical care. This summary normalizes information from multiple sources, and as a consequence, information in this document may materially change the coding, format and clinical context of patient data. In addition, data may be omitted in some cases. CLINICAL DECISIONS SHOULD BE BASED ON THE PRIMARY CLINICAL RECORDS. [employer] provides no warranty or guarantee of the accuracy or completeness of information in this document.
[2023-06-25 16:08] LABS: ALB/GLOB Ratio 1.3 RATIO (0.9-2.4); AST(SGOT) 13 U/L (15-37); Alanine Aminotransfer ALT/SGPT 26 U/L (13-56); Albumin, Serum 4.2 g/dL (3.2-5.0); Alkaline Phosphatase 59 U/L (45-117); Anion Gap 5 (5-15); BUN 16 mg/dL (7-18); BUN/Creat Ratio 16.9 RATIO (10-20); Calcium,Total 10.1 mg/dL (8.5-10.1); Chloride 106 mmol/L (98-107); Cholesterol 106 mg/dL (200); Creatinine, Serum 0.94 mg/dL (0.55-1.02); EST Glomerular Filtration Rate 62 mL/min (>60); Est Glom Filt Rate - Afr Amer 75 mL/min (>60); Globulin 3.3 g/dL (2.2-4.2); Glucose 121 mg/dL (74-106); High Density Lipoprotein 50 mg/dL; Potassium 4.4 mmol/L (3.5-5.1); Protein, Total 7.5 g/dL (6.4-8.2); Sodium Level 137 mmol/L (136-145); Triglycerides 100 mg/dL; Very Low Density Lipoprotein 20 mg/dL (5-40)
[2023-06-25 16:23] LABS: Microalbumin,Random Urine 26.9 mg/L (NO RANGE EST.); Microalbumin:Creatinine Ratio 15.7 mg/g CRE (<30 mg/g CRE)
== END | disposition home or self-care (01) ==
LOC: MFPLAB 13:52
PROVIDERS: PCP Family Medicine; Visit Provider Family Medicine
DX: E11.9 Type 2 diabetes mellitus without complications (principal)
CPT/HCPCS: 36415; 80053; 80061; 82043; 82570

== ENCOUNTER → 2023-07-05 | Outpatient (CLI) | payer MEDICARE, SELFPAY ==
--- NOTE | 2023-07-05 15:18 | RAD_ITS ---
STUDY: X-RAY - RIGHT KNEE REASON FOR EXAM: Female, 67 years old. Fall. TECHNIQUE: 3 views of the right knee. COMPARISON: None. FINDINGS: Normal visualized distal femur. There is cortical disruption of the articular surface of the lateral tibial plateau, compatible with a lateral tibial plateau fracture. Normal visualized proximal fibula. Normal proximal tibiofibular articulation. Normal medial femorotibial compartment. Normal patellofemoral articulation. There is a moderate joint effusion. The soft tissue structures are unremarkable. RAD/Knee 3 Views IMPRESSION: Lateral tibial plateau fracture. Moderate joint effusion. Electronically Signed: Johnnie Craven MD at 15:50 EST ,
--- NOTE | 2023-07-05 15:18 | RAD_ITS ---
STUDY: X-RAY - RIGHT FOOT CLINICAL: Female, 67 years old. Fall. TECHNIQUE: 3 views of the right foot. COMPARISON: None. FINDINGS: There is generalized osteopenia. There is ORIF hardware in the distal tibia and distal fibula. Normal talus, calcaneus, and tarsal bones. Normal visualized subtalar, talonavicular, calcaneocuboid, tarsal and tarsometatarsal articulations. Normal metatarsi. Normal metatarsophalangeal joint of the great toe. Normal tibial and fibular sesamoid bones. Normal interphalangeal joint of the great toe. Normal phalanges of the great toe. Normal second through fifth metatarsophalangeal joints. Normal interphalangeal joints and phalanges of the lesser toes. The soft tissue structures are unremarkable. There is no demonstrated acute fracture. RAD/Foot 2 Views IMPRESSION: No demonstrated acute fracture. Electronically Signed: Johnnie Craven MD at 15:54 EST ,
--- NOTE | 2023-07-05 15:18 | RAD_ITS ---
STUDY: X-RAY - RIGHT ANKLE REASON FOR EXAM: Female, 67 years old. Fall. TECHNIQUE: 2 views of the right ankle. COMPARISON: None. FINDINGS: There is generalized osteopenia. There is ORIF hardware in the medial malleolus and distal fibula. Normal tibiotalar articulation and ankle mortise. Normal visualized talus and calcaneus. The visualized subtalar, talonavicular, calcaneocuboid and tarsal articulations are normal. There is no demonstrated acute fracture. The soft tissue structures are unremarkable. RAD/Ankle 2 Views IMPRESSION: No demonstrated acute fracture. Electronically Signed: Johnnie Craven MD at 15:53 EST ,
--- OUTSIDE RECORDS SUMMARY | 2023-07-05 17:20 | XMS RPT_ITS | CCD ---
Author Name Unknown Address [address] [place] [address] Organization [facility] Care Team Providers Care Management Retail Intern Name Role Phone DESIREE MTZ Attending Unavaila ble CYNTHIA DOBSON Admitting Unavailable KICYNTHIA AKHTAR Attending Unavailable KISHMANCYNTHIA Attending Unavailable KISHMANCYNTHIA Attending Unavailable KISHMANCYNTHIA Referring Unavailable KISHCYNTHIA MELCHOR Attending Unavailable KISHCYNTHIA MELCHOR Attending Unavailable KISHCYNTHIA MELCHOR Attending Unavailable KISHCYNTHIA MELCHOR Attending Unavailable CLAUDIA, JOHNNA Primary Care Unavailable CYNTHIA DOBSON Admitting Unavailable KISHCYNTHIA MELCHOR Attending Unavailable IMCA Consulting Unavailable KICYNTHIA AKHTAR Attending Unavailable IMCA Referring Unavailable CLAUDIA, JOHNNA Primary Care Unavailable KICYNTHIA AKHTAR Attending Unavailable KISHCYNTHIA MELCHOR Referring Unavailable CLAUDIA, JOHNNA Primary Care Unavailable KISHCYNTHIA MELCHOR Attending Unavailable KISHCYNTHIA MELCHOR Referring Unavailable [...] sources) Codeine; Translations: [CODEINE] Drug Allergy 03-18-2018 [facility] Other [place] Repository Problems Active Problems Problem Classification Problem [...] 08-19-2018 Patient encounter procedure CYNTHIA Chiang DENNYRUIZ Facility:[facility] Start: 07-18-2018 End: 07-18-2018 [facility]: 07-15-2018 Patient encounter procedure CYNTHIA Chiang TIFFANYGIOVANA Facility:[facility] Start: 07-01-2018 End: 07-01-2018 Patient encounter procedure CYNTHIA [facility] Start: 06-03-2018 End: 06-03-2018 [facility]: 05-06-2018 End: 05-06-2018 Patient encounter procedure CYNTHIA [facility] Start: 04-08-2018 End: 04-08-2018 Patient encounter procedure CYNTHIA [facility] Start: 04-04-2018 Patient encounter procedure CYNTHIA DOBSON Facility:[facility] Start: 03-28-2018 End: 03-28-2018 Patient encounter procedure CYNTHIA DOBSON [facility] Start: 03-18-2018 End: 03-22-2018 Evaluation and management of inpatient CYNTHIA DOBSON [facility] Start: 03-18-2018 End: 03-18-2018 [facility] Procedures Date Procedure Procedure Detail Performing Clinician Start: 07-18-2018 Follow-up visit Follow Up DESIREE Mariia ROMERO Start: 03-19-2018 Antibody screen JOHNNA CRUMP Payers Date Payer Category Payer Unknown [id number] 2.16.8 [id number] 1955 Unknown [id number] 2.16.8 [id number] 1953 Unknown [id number] 2.16.8 [id number] 1953 Unknown [id number] 2.16.8 [id number] 1953 Unknown [id number] 2.16.8 [id number] 1953 Unknown [id number] 2.16.8 [id number] 1953 Unknown [id number] 2.16.8 [id number] 1953 Unknown [id number] 2.16.8 [id number] 1953 Unknown [id number] 2.16.8 [id number] 1953 Unknown [id number] 2.16.8 [id number] Unknown [id number] Summary Purpose Family History No Family History Records FoundNo Family History Records Found Advance Directives No Advanced Directives Records FoundNo Advanced Directives Records Found Hospital Course Note HNO ID: [id number] Author: Mariia Dobson Service: Orthopaedic Surgery Author [...] (more content not included)... Note HNO ID: [id number] Author: Tyler Garcia Service: Orthopaedic Surgery Author Type: Resident Type: Brief Op Note Filed: 03/19/2018 11:24 AM Note Text: BRIEF OPERATIVE / PROCEDURE NOTE LOG ID: [id number] SURGERY/PROCEDURE DATE: 03/19/2018 INCISION/PROCEDURE START TIME: 8:37 AM INCISION CLOSE/PROCEDURE END TIME: 11:12 AM SURGEON(S)/PROCEDURALIST(S) AND PLAQUE MAKER(S): Surgeon(s) and Role: * Cynthia Dobson - [...] not included)... Procedure Findings Note HNO ID: [id number] Author: Tyler pa (Res) Radha Service: Orthopaedic Surgery Author Type: Resident Type: Brief Op Note Filed: 03/19/2018 11:24 AM Note Text: BRIEF OPERATIVE / PROCEDURE NOTE LOG ID: [id number] SURGERY/PROCEDURE DATE: 03/19/2018 INCISION/PROCEDURE START TIME: 8:37 AM INCISION CLOSE/PROCEDURE END TIME: 11:12 AM SURGEON(S)/PROCEDURALIST(S) AND PLAQUE MAKER(S): Surgeon(s) and Role: * Cynthia Dobson - [...] DATE CREATED AUTHOR AUTHOR'S BOSTON MIRANDA 08/19/2018 [facility] FOR RECORDS PERTAINING TO PATIENTS WHO [...] BE BASED ON THE PRIMARY CLINICAL RECORDS. [employer] provides no warranty or guarantee of the accuracy or completeness of information in this document.
== END | disposition home or self-care (01) ==
PROVIDERS: PCP Family Medicine; Referring Provider Physician Assistant; Visit Provider Physician Assistant
DX: S82.121A Displaced fracture of lateral condyle of right tibia, initial encounter for closed fracture (principal); W19.XXXA Unspecified fall, initial encounter
CPT/HCPCS: 73562; 73600; 73620

== ENCOUNTER → 2024-06-07 | Outpatient (CLI) | payer MEDICARE, SELFPAY ==
[2024-06-07 19:09] LABS: ALB/GLOB Ratio 1.4 RATIO (0.9-2.4); AST(SGOT) 16 U/L (15-37); Alanine Aminotransfer ALT/SGPT 24 U/L (13-56); Albumin, Serum 4.5 g/dL (3.2-5.0); Alkaline Phosphatase 64 U/L (45-117); Anion Gap 3 (5-15); BUN 15 mg/dL (7-18); BUN/Creat Ratio 17.9 RATIO (10-20); Calcium,Total 10.3 mg/dL (8.5-10.1); Chloride 104 mmol/L (98-107); Cholesterol 124 mg/dL (200); Creatinine, Serum 0.84 mg/dL (0.55-1.02); EST Glomerular Filtration Rate 71 mL/min (>60); Est Glom Filt Rate - Afr Amer 86 mL/min (>60); Globulin 3.3 g/dL (2.2-4.2); Glucose 106 mg/dL (74-106); High Density Lipoprotein 51 mg/dL; Potassium 4.4 mmol/L (3.5-5.1); Protein, Total 7.8 g/dL (6.4-8.2); Sodium Level 136 mmol/L (136-145); Triglycerides 121 mg/dL; Very Low Density Lipoprotein 24 mg/dL (5-40)
[2024-06-07 19:45] LABS: Hemoglobin A1c 6.2 % (3.8-5.6)
== END | disposition home or self-care (01) ==
PROVIDERS: PCP Family Medicine; Referring Provider Family Medicine; Visit Provider Family Medicine
DX: E11.9 Type 2 diabetes mellitus without complications (principal)
CPT/HCPCS: 36415; 80053; 80061; 82570; 83036; 84156